=== PATIENT | female | born 1955 ===

== ENCOUNTER 2020-03-06 11:03 | Outpatient (REF) | payer OTHER, SELFPAY ==
--- NOTE | 2020-03-06 11:09 | MM_ITS ---
EXAMINATION: MM SCREENING DIGITAL BREAST TOMOSYNTHESIS, BILATERAL CLINICAL INFORMATION: Screening. Asymptomatic. The lifetime risk of breast cancer based on the Tyrer-Cuzick Model is 4.0%. COMPARISON: Mammography: August 01, 2018 and studies dating back to March 19, 2012 TECHNIQUE: Digital breast tomosynthesis is performed in both the craniocaudal and mediolateral oblique views along with computer-aided detection (CAD). Synthesized 2D images are generated from the tomosynthesis. FINDINGS: The breasts are heterogeneously dense, which may obscure small masses (ACR BI-RADS breast composition Category c). There are no significant masses, abnormal calcifications, or other abnormalities. MM/MM tomosynthesis screening BI IMPRESSION: There are no significant changes from prior study. ASSESSMENT: BI-RADS 1: Negative RECOMMENDATION: Routine annual mammography screening. This patient's information was entered into a reminder system with a target due date for their next mammogram.
== END 2020-03-06 11:04 | disposition home or self-care (01) ==
LOC: HO.MAMMO 11:03
PROVIDERS: PCP Internal Medicine; Visit Provider Internal Medicine
DX: Z12.31 Encounter for screening mammogram for malignant neoplasm of breast (principal)
CPT/HCPCS: 77063; 77067

== ENCOUNTER 2021-06-16 09:33 | Outpatient (REF) | payer OTHER, SELFPAY ==
--- NOTE | 2021-06-16 09:57 | ECG_ITS ---
Test Reason : pre op Blood Pressure : / mmHG Vent. Rate : 072 BPM Atrial Rate : 072 BPM P-R Int : 138 ms QRS Dur : 072 ms QT Int : 380 ms P-R-T Axes : 048 057 075 degrees QTc Int : 416 ms Normal sinus rhythm Normal ECG When compared to the previous EKG of No significant changes seen Referred By: Jodie Angeles Electronically Signed By:ABIEL COON MD
[2021-06-16 09:58] LABS: MANUAL DIFF FLAG NO
[2021-06-16 10:05] LABS: Basophils Absolute Auto 0.1 X10*3/uL (0.0-0.2); Basophils Percent Auto 1.5 % (0-2); Eosinophils Absolute Auto 0.1 X10*3/uL (0.0-0.4); Eosinophils Percent Auto 3.6 % (0-4); Hematocrit 41.4 % (37.0-47.0); Hemoglobin 13.6 g/dl (12.0-16.0); Lymphocytes Absolute Auto 1.7 X10*3/uL (1.2-4.9); Lymphocytes Percent Auto 50.2 % (20-40); Mean Corpuscular HGB Conc 32.9 g/dl (31.0-35.0); Mean Corpuscular Hemoglobin 30.3 pg (27.0-33.0); Mean Corpuscular Volume 92.2 fL (80.0-98.0); Mean Platelet Volume 9.9 fL (9.4-12.3); Monocytes Absolute Auto 0.4 X10*3/uL (0.1-1.2); Monocytes Percent Auto 10.9 % (2-11); Neutrophils Absolute Auto 1.1 x10*3/uL (2.0-8.3); Neutrophils Percent Auto 33.8 % (45-73); Platelet Count 292 X10*3/uL (160-400); Red Blood Count 4.49 X10*6/uL (4.20-5.50); Red Cell Distribution Width 13.4 % (11.0-16.0); White Blood Count 3.3 X10*3/uL (4.8-10.8)
[2021-06-16 10:29] LABS: Alanine Aminotransferase 8 U/L (0-31); Albumin Level 4.1 g/dL (3.5-5.0); Alkaline Phosphatase 123 U/L (39-117); Anion Gap 11 (12-20); Aspartate Amino Transferase 14 U/L (5-31); Bilirubin Total 0.3 mg/dL (0.0-1.0); Blood Urea Nitrogen 11 mg/dL (9-16); Calcium 9.9 mg/dL (8.4-10.2); Carbon Dioxide 30 mmol/L (22-29); Chloride 105 mmol/L (96-108); Cholesterol 189 mg/dL; Estimated Glomerular Filt Rate > 60; Glucose Fasting 84 mg/dL (60-99); HDL Cholesterol 76 mg/dL; LDL Cholesterol Calculated 102 mg/dl; Potassium 4.9 mmol/L (3.3-5.1); Sodium 141 mmol/L (135-145); Total Protein 7.3 g/dL (6.5-8.0); Triglycerides 59 mg/dL
== END 2021-06-16 09:34 | disposition home or self-care (01) ==
LOC: HO.LAB 09:33
PROVIDERS: PCP Internal Medicine; Visit Provider Internal Medicine
DX: Z01.818 Encounter for other preprocedural examination (principal); D64.9 Anemia, unspecified
CPT/HCPCS: 36415; 80053; 80061; 85025; 93005

== ENCOUNTER 2021-07-15 11:49 | Outpatient (REF) | payer OTHER, SELFPAY ==
--- NOTE | ~2021-07-15 | MM_ITS ---
EXAMINATION: MM SCREENING DIGITAL BREAST TOMOSYNTHESIS, BILATERAL CLINICAL INFORMATION: Screening. Asymptomatic. The lifetime risk of breast cancer based on the Tyrer-Cuzick Model is 9%. COMPARISON: Mammography: 03/06/2020, 08/01/2018, 07/24/2017, 06/25/2016 TECHNIQUE: Digital breast tomosynthesis is performed in both the craniocaudal and mediolateral oblique views along with computer-aided detection (CAD). Synthesized 2D images are generated from the tomosynthesis. FINDINGS: There are scattered areas of fibroglandular density (ACR BI-RADS breast composition Category b). There are no significant masses, abnormal calcifications, or other abnormalities. Parenchymal pattern is similar to prior studies. There is no developing density or architectural abnormality. The axilla and skin contours are unremarkable. No significant changes. MM/MM tomosynthesis screening BI IMPRESSION: No mammographic evidence of malignancy. ASSESSMENT: BI-RADS 1: Negative RECOMMENDATION: Routine annual mammography screening. This patient's information was entered into a reminder system with a target due date for their next mammogram.
== END 2021-07-15 11:50 | disposition home or self-care (01) ==
LOC: HO.MAMMO 11:49
PROVIDERS: PCP Internal Medicine; Visit Provider Internal Medicine
DX: Z12.31 Encounter for screening mammogram for malignant neoplasm of breast (principal)
CPT/HCPCS: 77063; 77067

== ENCOUNTER 2022-01-21 11:26 | Outpatient (REF) | payer OTHER, SELFPAY ==
[2022-01-21 13:00] LABS: TSH reflex Free T4 0.42 uIU/mL (0.32-4.0); Vitamin D 25-OH Total 30.4 ng/mL (>30)
[2022-01-21 13:15] LABS: Folate 9.4 ng/mL (> or = 4.0); Vitamin B12 391 pg/mL (200-900)
[2022-01-25 00:57] LABS: TS Negative Control Passed; TS Panel A 1; TS Panel B 4; TS Positive Control Passed; TSpotTB Negative (Negative)
== END 2022-01-21 11:27 | disposition home or self-care (01) ==
LOC: HO.LAB 11:26
PROVIDERS: Visit Provider Nurse Practitioner Family
DX: Z00.00 Encounter for general adult medical examination without abnormal findings (principal); Z11.1 Encounter for screening for respiratory tuberculosis
CPT/HCPCS: 36415; 82306; 82607; 82746; 84443; 86481

== ENCOUNTER 2022-07-21 10:48 | Outpatient (REF) | payer OTHER, SELFPAY ==
--- NOTE | ~2022-07-21 | MM_ITS ---
EXAMINATION: BONE DENSITOMETRY CLINICAL INDICATION: Asymptomatic menopausal state. COMPARISON: None (current study represents initial baseline exam). TECHNIQUE: Using a [employer] DXA System (software version: 13.1) manufactured by [employer], dual-energy x-ray absorptiometry was performed of the lumbar spine and left hip. The images are of good technical quality. Summary results are attached. FINDINGS: AP SPINE L1-L4: BMD 1.024 g/cm2, Z-score -0.2, T-score -1.3, osteopenia. LEFT FEMUR, NECK: BMD 0.929 g/cm2, Z-score 0.4, T-score -0.8, normal. LEFT FEMUR, TOTAL: BMD 0.981 g/cm2, Z-score 0.7, T-score -0.2, normal. IDENTIFIED RISK FACTORS: Secondary osteoporosis (early menopause). Hysterectomy. Right oophorectomy. HISTORY OF FRACTURE: None listed. MEDICATIONS: Calcium supplement or multivitamin. Vitamin D MM/XR DEXA axial skeleton IMPRESSION: 1. DIAGNOSIS: Osteopenia based on the lowest T-score value of -1.3 in the lumbar spine applying World Health Organization criteria. 2. 10-YEAR FRACTURE RISK PREDICTION, FRAX: Major osteoporotic fracture (clinical spine, forearm, hip or shoulder) 4.3%. Hip fracture 0.3%. 3. Treatment Recommendations: NOF guidelines recommend consideration for treatment in postmenopausal women and men age 50 and older presenting with the following: -A hip or vertebral (clinical or morphometric) fracture. -T-score less than or equal to -2.5 at the femoral neck or spine after appropriate evaluation to exclude secondary causes. -Low bone mass at the hip or spine and a 10-year fracture probability by FRAX of greater than or equal to 3% for hip fracture or greater than or equal to 20% for major osteoporotic fracture based on the [place] adapted WHO algorithm. 4. Other Recommendations: All treatment decisions require clinical judgment and consideration of individual patient factors, including patient preferences, comorbidities, previous drug use, risk factors not captured in the FRAX model (e.g. frailty, falls, vitamin D deficiency, increased bone turnover, interval significant decline in bone density) and possible under or overestimation of fracture risk by FRAX. Additional medical evaluation for secondary cause of low bone mineral density may be appropriate. FUTURE SCAN RECOMMENDATION: People with diagnosed cases of osteoporosis or at high risk for fracture should have regular bone mineral density tests. For patients eligible for Medicare, routine testing is allowed once every 2 years. The testing frequency can be increased to one year for patients who have rapidly progressing disease, those who are receiving or discontinuing medical therapy to restore bone mass, or have additional risk factors.
--- NOTE | ~2022-07-21 | MM_ITS ---
EXAMINATION: MM SCREENING DIGITAL BREAST TOMOSYNTHESIS, BILATERAL CLINICAL INFORMATION: Screening. Asymptomatic. The lifetime risk of breast cancer based on the Tyrer-Cuzick Model is 3.2%. COMPARISON: Mammography: July 15, 2021 and studies dating back to June 25, 2016 TECHNIQUE: Digital breast tomosynthesis is performed in both the craniocaudal and mediolateral oblique views along with computer-aided detection (CAD). Synthesized 2D images are generated from the tomosynthesis. FINDINGS: There are scattered areas of fibroglandular density (ACR BI-RADS breast composition Category b). There are no significant masses, abnormal calcifications, or other abnormalities. MM/MM tomosynthesis screening BI IMPRESSION: No significant changes from prior exam. ASSESSMENT: BI-RADS 1: Negative RECOMMENDATION: Routine annual mammography screening. This patient's information was entered into a reminder system with a target due date for their next mammogram.
== END 2022-07-21 10:49 | disposition home or self-care (01) ==
LOC: HO.MAMMO 10:48
PROVIDERS: PCP Internal Medicine; Visit Provider Nurse Practitioner Family
DX: Z12.31 Encounter for screening mammogram for malignant neoplasm of breast (principal); Z13.820 Encounter for screening for osteoporosis; Z78.0 Asymptomatic menopausal state
CPT/HCPCS: 77063; 77067; 77080

== ENCOUNTER 2022-11-24 12:53 | Outpatient (AMB) | payer OTHER, SELFPAY ==
[2022-11-24 13:02] VITALS: BP 132/80; PULSE 99; O2SAT 98; BMI 28.1
--- NOTE | 2022-11-24 13:02 | MHC.PC.OV ---
Vital Signs 11/24/22 13:02 Height 5 ft 7 in Weight 179 lb 6 oz BMI 28.1 BP 132/80 Blood Pressure Location Lt brachial Position Sitting Pulse 99 Pulse Source Pulse Oximeter Pulse Oximetry (%) 98 Oxygen Delivery Method Room Air Intake Visit Reasons: Red spots all over body Results Engineer Required: No Accompanied by: Self / Same As Patient Allergies bupropion [From Wellbutrin SR] Allergy (Intermediate, Verified 11/24/22 13:02) tachycardia Tobacco use date assessed: 11/24/22 Fall risk assessment: 1 Fall in past year Last assessed Fall Risk: 11/24/22 Dental Screening Dental Screen Date: 11/24/22 Did you have a dental visit in the last 12 months?: Yes Did you have a dental problem in the last 6 months where you did not have access to dental care?: No Was dental information given to patient?: Patient has dentist HPI HPI Comments History of Present Illness Details This is a 67-year-old female with mild major depression, anxiety and GERD.Patient of Dr. Mallory, Patient presents today for rash that complains of a rash on the right lower leg that started in august scaly and pruritic.She denies being bit by a bug.? Has try [id number] hydrocortisone cream and triple antibiotic with no significant relief. Patient was prescribed ketoconazole cream in August with no improvement just states it made her skin peel off to right lower leg and the skin got really pink. Patient reports it is returning back to normal. Patient continues to have scattered flat erythematous spots to bilateral lower extremities. Patient she states she is concerned for chickenpox, patient reassured chickenpox usually small fluid-filled vesicles. Patient states has a has appointment to see Dermatology in December. ? [facility] Medical History ED (generalized anxiety disorder) Insomnia Leukopenia Mild recurrent major depression Physical exam Polyarthralgia Pre-op evaluation Surgical History History of arthroscopy of left knee History of cataract surgery History of colonoscopy History of repair of rotator cuff History of total abdominal hysterectomy and bilateral salpingo-oophorectomy Family History Father CVD (cardiovascular disease) Hypertension Mother Diabetes Uterine cancer Cancer Paternal Grandmother Hypertension Paternal Grandfather No problems noted. Family/Other Substance use disorder FH: mental illness Son No problems noted. Daughter No problems noted. Daughter No problems noted. Brother Cancer Maternal Grandmother Cancer Maternal Grandfather Cancer Paternal Uncle Cancer Social History Household Members: Children [facility] Are you a primary career development counselor to a significant other at home: No Do you presently have visiting nurse or other home services: No Alcohol intake: current Alcohol intake frequency: holidays/special occasions only Alcohol type: beer Patient Tobacco Use Status: Former Tobacco user Quit Date: 05/2021 Tobacco use type: Cigarette e-Cigarette/Vaping Use: Never Used Second Hand Smoke Exposure: No service: No Current occupational status: employed Current occupational exposures/hazards: No Cognitive needs: No Hearing needs: No Vision needs: Yes (Glasses.) Questionnaire PHQ-9 Over the last 2 weeks, how often have you been bothered by any of the following problems? 1. Little interest or pleasure in doing things: not at all 2. Feeling down, depressed, or hopeless: several days 3. Trouble falling or staying asleep, or sleeping too much: several days 4. Feeling tired or having little energy: several days 5. Poor appetite or overeating: several days 6. Feeling bad about yourself - or that you are a failure or have let yourself or your family down: several days 7. Trouble concentrating on things, such as reading the newspaper or watching television: not at all 8. Moving or speaking so slowly that other people could have noticed. Or the opposite - being so fidgety or restless that you have been moving around a lot more than usual: several days 9. Thoughts that you would be better off or of hurting yourself in some way: not at all Total score: 6 Depression Screening Interpretation: Positive Depression Screening Follow-up: In treatment 16042 - PHQ-9 Billing: Yes Source: Developed by Drs. Prince Srivastava, Kori Phillips, Jose Sanders and colleagues, with an educational buddy from [employer] Thrive Questionnaire Date Thrive assessed: 11/24/22 I am a: Patient What is your living situation today?: I have a steady place to live Within the past 12 months, did the food you bought not last and you didn't have the money to get more?: Never true Within the past 12 months, did you worry whether your food would run out before you got money to buy more?: Never true Do you have trouble paying for medicines?: No Do you have trouble getting transportation to medical appointments?: No Do you have trouble paying your heating and electricity bill?: No Do you have trouble taking care of your child, family member or friend?: No Do you have trouble with day-to-day activities such as bathing, preparing meals, shopping, managing finances, etc.?: No Are you currently unemployed and looking for a job?: No Are you interested in more education?: No Please select the resources that you would like help with: None Currently or been in a relationship where the following occur: no concerns reported AUDIT C Alcohol Use Questionnaire (AUDIT-C) 1. How often do you have a drink containing alcohol?: Never Total Score: 0 ED-7 AMB Questionnaire ED-7 Date ED - 7 assessed: 11/24/22 Feeling nervous, anxious, or on edge: 0 = Not at all Not being able to stop or control worryin = Not at all Worrying too much about different things: 0 = Not at all Trouble relaxin = Not at all Being so restless that it is hard to sit still: 0 = Not at all Becoming easily annoyed or irritable: 0 = Not at all Feeling afraid as if something awful might happen: 0 = Not at all Total ED-7 score (0-4 normal; 5-9 mild; 10-14 moderate; 15-21 severe): 0 Source: Developed by Drs. Prince Srivastava, Kori Phillips, Jose Sanders and colleagues, with an educational buddy from [employer] Review of Systems Const Denies chills, Denies fatigue, Denies fever(s) and Denies poor appetite Eyes Denies no additional complaints ENT Reports Normal hearing present Card Denies chest pain, Denies syncope, Denies rapid heart rate and Denies dyspnea Resp Denies cough and Denies dyspnea GI Denies change in stool character, Denies constipation, Denies diarrhea, Denies nausea and Denies vomiting Denies urinary frequency, Denies dysuria and Denies urinary urgency Neuro Reports Normal hearing present, Denies confusion and Denies syncope Psych Denies confusion Endo Denies fatigue Physical exam (Primary Care) Vital Signs: Last Vital Signs Pulse 99 11/24/22 13:02 BP 132/80 11/24/22 13:02 Pulse Ox 98 11/24/22 13:02 Oxygen Delivery Method Room Air 11/24/22 13:02 BMI result Body Mass Index 28.1 Tobacco/Smoking Status: Tobacco use Status Tobacco use date assessed 11/24/22 11/24/22 13:08 Patient Tobacco Use Status Former Tobacco user 11/24/22 13:08 Tobacco use type Cigarette 11/24/22 13:08 e-Cigarette/Vaping Use Never Used 11/24/22 13:08 PHQ-9: PHQ-9 Score PHQ-9: Total score 6 11/24/22 15:45 Depression Screening Interpretation: Positive Depression Screening Follow-up: In treatment Thrive Assessment: Date of Thrive Assessment Date Thrive assessed 11/24/22 11/24/22 13:08 Currently or been in a relationship where the following occur: no concerns reported Const General: No confusion Orientation/consciousness: No confusion HENMT Head: Yes normocephalic and Yes atraumatic Eyes Conjunctivae: conjunctivae normal Chest Chest palpation & inspection: normal inspection of the chest Resp Effort & Inspection: normal respiratory effort Auscultation: clear to auscultation bilaterally, no crackles, no rhonchi and no wheezes Cardio Rate: regular rate Rhythm: regular rhythm Heart sounds: S1 normal heart sound present and S2 normal heart sound present GI Inspection: Yes normal to inspection Skin Other: appears to be scattered flat,puritic rash to bilateral LE, Covered in calimine lotion during appointment. Full body images: 1. scaled annular 3x 3 cm of healing regranulation tissue from where she reports skin peeled off. No drainage or surrounding erythema. Neuro General: No confusion Cranial nerves: Yes Normal hearing present Extrem General: No edema Assessment and Plan Assessment & Plan (1) Rash: Code(s): R21 - Rash and other nonspecific skin eruption Plan: Triamcinolone cream topical b.i.d. times 14 days sent to patient's pharmacy. Patient advised if no improvement after steroid cream to follow-up with PCP. Keep scheduled appointment with Dermatology in December. Medications: New triamcinolone acetonide 0.5% 1 appl topical BID 15 grams 0RF R21 - Rash and other nonspecific skin eruption Coding Level of Care Code Est Pt Level 3 (25775) Diagnoses Rash R21
== END 2022-11-24 14:28 | disposition home or self-care (01) ==
PROVIDERS: PCP Internal Medicine; Visit Provider Nurse Practitioner Family
DX: R21 Rash and other nonspecific skin eruption (principal)
CPT/HCPCS: 99213

== ENCOUNTER 2023-01-26 09:45 | Outpatient (AMB) | payer OTHER, SELFPAY ==
[2023-01-26 09:51] VITALS: BP 118/80; BMI 28.2
--- NOTE | 2023-01-26 09:51 | A.OFFPC_ITS ---
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 Accompanied by: Self / Same As Patient Allergies bupropion [From Wellbutrin SR] Allergy (Intermediate, Verified 01/26/23 10:06) tachycardia Medication List - Last Reconciled 01/26/23 by Jodie Angeles MD albuterol sulfate 90 mcg/actuation (Ventolin HFA) 2 puffs inhalation Q6H PRN 30 days betamethasone dipropionate 0.05% 1 appl topical BID blood pressure monitor As directed cholecalciferol (vitamin D3) 25 mcg PO DAILY 30 days clonazepam 0.5 mg PO BID PRN 30 days diclofenac sodium 1% 1 - 2 grams topical TID-QID PRN 30 days fluticasone propionate 50 mcg/actuation 1 spray intranasal DAILY 30 days omeprazole 20 mg PO DAILY 90 days tacrolimus 0.1% 1 appl topical BID tramadol 50 mg PO Q4-6H PRN 30 days triamcinolone acetonide 0.5% 1 appl topical BID Wellbutrin SR (bupropion HCl) 200 mg PO DAILY 90 days NS zolpidem 10 mg PO BEDTIME 30 days Tobacco use date assessed: 11/24/22 Fall risk assessment: No Falls in past year Last assessed Fall Risk: 01/26/23 Dental Screening Dental Screen Date: 01/26/23 Did you have a dental visit in the last 12 months?: No Did you have a dental problem in the last 6 months where you did not have access to dental care?: No Was dental information given to patient?: Patient has dentist HPI HPI Comments History of Present Illness Details This is a 67-year-old female that comes for her physical exam. Last mammogram was 2022. Had Cologuard 2021 and was negative. Had a colonoscopy in 2013 showing tubular adenoma but she declines another colonoscopy even though she is aware that tubular adenoma has a higher risk of colon cancer. She denies any chest pain or shortness of breath. Depression stable with medications and is follow by Psychiatry. [facility] Medical History Leukopenia Insomnia ED (generalized anxiety disorder) Mild recurrent major depression Physical exam Pre-op evaluation Polyarthralgia Surgical History History of colonoscopy History of cataract surgery History of repair of rotator cuff History of arthroscopy of left knee History of total abdominal hysterectomy and bilateral salpingo-oophorectomy Family History (Updated 01/26/23 @ 10:14 by Jodie Angeles MD) Father CVD (cardiovascular disease) Hypertension Mother Diabetes Uterine cancer Cancer Paternal Grandmother Hypertension Paternal Grandfather No problems noted. Family/Other Substance use disorder FH: mental illness Son No problems noted. Daughter No problems noted. Daughter No problems noted. Brother Cancer Maternal Grandmother Cancer Maternal Grandfather Cancer Paternal Uncle Cancer Social History Household Members: Children Housing: [facility] Are you a primary neonatal intensive care unit nurse to a significant other at home: No Do you presently have visiting nurse or other home services: No Alcohol intake: current Alcohol intake frequency: holidays/special occasions only Alcohol type: beer Patient Tobacco Use Status: Former Tobacco user Quit Date: 05/2021 Tobacco use type: Cigarette e-Cigarette/Vaping Use: Never Used Second Hand Smoke Exposure: No service: No Current occupational status: employed Current occupational exposures/hazards: No Cognitive needs: No Hearing needs: No Vision needs: Yes (Glasses.) Questionnaire Thrive Questionnaire Date Thrive assessed: 11/24/22 ED-7 AMB Questionnaire ED-7 Date ED - 7 assessed: 11/24/22 Source: Developed by Drs. Prince Srivastava, Kori Phillips, Jose Sanders and colleagues, with an educational buddy from [employer]. Review of Systems Const All systems reviewed & are unremarkable except as noted in HPI and below Eyes Reports no additional complaints, Denies change in vision and Denies other visual disturbances Card Denies chest pain at rest, Denies chest pain with activity, Denies edema, Denies irregular heart rhythm, Denies claudication, Denies dyspnea, Denies dyspnea on exertion, Denies orthopnea, Denies paroxysmal nocturnal dyspnea and Denies slow heart rate Resp Denies cough, Denies dyspnea and Denies dyspnea on exertion GI Denies abdominal pain, Denies change in bowel habits, Denies excessive flatus, Denies nausea and Denies vomiting Denies urinary incontinence, Denies urinary hesitancy and Denies urinary urgency Musc Denies abnormal gait, Denies atrophy, Denies deformity and Denies limited range of motion Skin/Breast Denies bleeding lesions, Denies changing lesions and Denies rash Neuro Denies abnormal gait and Denies lack of coordination Physical exam (Primary Care) Vital Signs: Last Vital Signs BP 118/80 01/26/23 09:51 BMI result Body Mass Index 28.2 Tobacco/Smoking Status: Tobacco use Status Tobacco use date assessed 11/24/22 01/26/23 09:57 Patient Tobacco Use Status Former Tobacco user 01/26/23 09:57 Tobacco use type Cigarette 01/26/23 09:57 e-Cigarette/Vaping Use Never Used 01/26/23 09:57 Thrive Assessment: Date of Thrive Assessment Date Thrive assessed 11/24/22 01/26/23 09:57 Const Orientation/consciousness: patient oriented x3 HENMT Head: Yes normal to inspection, Yes normocephalic and Yes atraumatic Ears: external ears normal Eyes General: appearance normal, both eyes and all related structures Eyelids: Yes eyelids normal Conjunctivae: conjunctivae normal Neck Neck: Yes normal visual inspection and Yes supple Resp Effort & Inspection: normal respiratory effort Auscultation: clear to auscultation bilaterally Cardio Jugular venous distension: no JVD Rate: regular rate Rhythm: regular rhythm Heart sounds: S1 normal heart sound present and S2 normal heart sound present GI Inspection: Yes normal to inspection Palpation (GI): Soft to palpation and nontender Auscultation: normal bowel sounds Skin General skin exam: no rashes or lesions noted Neuro General: patient oriented x3 and no focal motor deficits Extrem General: Yes full ROM Psych Appearance: grossly normal Immunizations pneumoc 20-tmo conj-dip cr(PF) 0.5 mL IM syringe Performing Provider: Jodie Angeles MD Performing Location: [facility] Administered by: GER Mcadams on 01/26/23 10:28 Dose Route Admin Location Dispensed Lot Number Expiration Date NDC Senior Case Manager 0.5 mL IM Right Deltoid 0.5 mL [id number] 01/30/24 9798-3539-44 [employer] VIS Given Date VIS Provided VIS Publication Date 01/26/23 Single Vaccine 21 Eligibility Eligibility Date Funding Source Not VFC Eligible 01/26/23 Private Boostrix Tdap 2.5 Lf unit-8 mcg-5 Lf/0.5 mL intramuscular syringe Performing Provider: Jodie Angeles MD Performing Location: [facility] Administered by: GER Mcadams on 01/26/23 10:28 Dose Route Admin Location Dispensed Lot Number Expiration Date NDC Senior Case Manager 0.5 mL IM Left Deltoid 0.5 mL [id number] 01/24/25 [id number] [employer] VIS Given Date VIS Provided VIS Publication Date 01/26/23 Single Vaccine 20 Eligibility Eligibility Date Funding Source Not VFC Eligible 01/26/23 Private Assessment and Plan Assessment & Plan (1) Physical exam: Code(s): Z00.00 - Encounter for general adult medical examination without abnormal findings Plan: Repeat in a year (2) Mild recurrent major depression: Code(s): F33.0 - Major depressive disorder, recurrent, mild Plan: Continue Wellbutrin. Follow-up with psychiatry. Orders: Orders Vitamin D 25-OH Total Today E55.9 - Vitamin D deficiency, unspecified Comprehensive Met. Panel Today Z00.00 - Encounter for general adult medical examination without abnormal findings TDaP Immunization Today Z23 - Encounter for immunization Pneumococcal 20 Immunization Today Z23 - Encounter for immunization Lipid Panel Today Z00.00 - Encounter for general adult medical examination without abnormal findings Medications: New omeprazole 40 mg PO DAILY 90 days 90 caps 1RF calcium carbonate 500 mg PO BID 90 days 180 tabs 3RF Changed From diclofenac sodium 1% 1 - 2 grams topical TID-QID 30 days PRN 100 grams 1RF pain To diclofenac sodium 1% 1 - 2 grams topical TID-QID 30 days PRN 100 grams 1RF pain NS Discontinued omeprazole Discontinued Reason: Patient Completed Course 20 mg PO DAILY 90 days 90 caps 1RF K21.9 - Gastro-esophageal reflux disease without esophagitis Coding Level of Care Code Est Pt Prev Care >65y(45177) Diagnoses Physical exam Z00.00 Mild recurrent major depression F33.0 Time Spent (min) 32
== END 2023-01-26 10:21 | disposition home or self-care (01) ==
PROVIDERS: Visit Provider Internal Medicine
DX: Z00.00 Encounter for general adult medical examination without abnormal findings (principal); F33.0 Major depressive disorder, recurrent, mild; Z23 Encounter for immunization
CPT/HCPCS: 90471; 90677; 90715; 99397

== ENCOUNTER 2023-01-26 13:00 | Outpatient (RCR) | payer OTHER, SELFPAY ==
--- NOTE | 2022-12-19 17:14 | MHC.PT.EP ---
[facility] [place] Office [place] [facility] [place] [facility] [address] [phone] F: [phone] F: [phone] F: [phone] F: [phone] Physical Therapy Plan of Care Date of Evaluation: Date of Surgery: Diagnosis: cervicalgia low back pain (after fall) Assessment: Patient is a 67 y.o. female who is referred to PT by Dr. Jodie Angeles MD with Dx of cervicalgia and low back pain. She sustained R sided low back, hip and neck pain after a mechanical fall, without fracture. Patient impairments include poor posture, pain, limited ROM in low back, neck, weakness in hips and core. Patient current functional limitations are turning head to look over shoulders, sleeping, daughter helps with cooking/cleaning, stairs (fearful of), lifting/carrying anything. Patient will benefit from skilled PT to address aforementioned impairments and functional limitations to meet established goals. Frequency and Duration: The patient will be seen 2x/week for 4 weeks Short Term Goals: 2 weeks Patient demonstrates consistency and independence with HEP to self manage symptoms. Patient presents with ability to self correct poor posture, sitting with neutral cervical and lumbar spine. Alterations Workroom Clerk Goals: 4 weeks Patient presents with increased cervical rotation 55 degrees bilaterally to look over her shoulders for driving or crossing street. Patient presents with increased R hip flexion 5/5 to be able to ascend/descend flight of stairs at home. Treatment Plan: Modalities to reduce pain, spasms and effusion. Manual therapy to restore motion and function. Therapeutic exercise to improve strength and flexibility. Neuromuscular re-education for posture and balance. Therapeutic activities to return to functional activities of daily living. Electronically signed by: Deon Molina, PT, DPT Please sign and return to therapist. Thank you for your referral.
--- NOTE | 2023-01-26 16:55 | MHC.PT.DC ---
[facility] [place] Office [place] Office [place] Office [address] Rebeca Mohan [address] [phone] F: [phone] F: [phone] F: [phone] F: [phone] Physical Therapy Discharge Report Diagnosis: cervicalgia low back pain (after fall) Date of Surgery: DOI 09/17/22 Date of Evaluation: 12/19/22 Date of Discharge: 01/26/23 Treatments to Date: 8 Cancellations to Date: No Shows to Date: Discharge Status: Improved Function Independent with HEP Discharge Summary: Since starting PT, she has shown reduction in pain level and ability to perform more exercises without needing manual therapy. I re-educated her on continuing with exercises for stretching or strengthening her back. She is appropriate for discharge at this time and agrees to plan. Electronically signed by: Deon Molina, PT, DPT Please sign and return to therapist. Thank you for your referral.
== END 2023-01-26 16:59 | disposition home or self-care (01) ==
LOC: HO.PT 13:00
PROVIDERS: PCP Internal Medicine; Visit Provider Internal Medicine
DX: M54.50 Low back pain, unspecified (principal)
CPT/HCPCS: 97110; 97140; 97161

== ENCOUNTER 2023-07-27 09:38 | Outpatient (AMB) | payer OTHER, SELFPAY ==
[2023-07-27 09:48] VITALS: BP 126/78; BMI 28.2
--- NOTE | 2023-07-27 09:48 | A.OFFPC_ITS ---
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 by: Self / Same As Patient Allergies bupropion [From Wellbutrin SR] Allergy (Intermediate, Verified 07/27/23 09:49) tachycardia Medication List - Last Reconciled 07/27/23 by Jodie Angeles MD albuterol sulfate 90 mcg/actuation (Ventolin HFA) 2 puffs inhalation Q6H PRN 30 days blood pressure monitor As directed calcium carbonate 500 mg PO BID 90 days cholecalciferol (vitamin D3) 25 mcg PO DAILY 30 days clonazepam 0.5 mg PO BID PRN 30 days diclofenac sodium 1% 1 - 2 grams topical TID-QID PRN 30 days NS fluticasone propionate 50 mcg/actuation 1 spray intranasal DAILY 30 days omeprazole 40 mg PO DAILY 90 days tacrolimus 0.1% 1 appl topical BID tramadol 50 mg PO Q4-6H PRN 30 days triamcinolone acetonide 0.5% 1 appl topical BID Wellbutrin SR (bupropion HCl) 200 mg PO DAILY 90 days NS zolpidem 10 mg PO BEDTIME 30 days Tobacco use date assessed: 07/27/23 Fall risk assessment: No Falls in past year Last assessed Fall Risk: 07/27/23 Dental Screening Dental Screen Date: 07/27/23 Did you have a dental visit in the last 12 months?: No Did you have a dental problem in the last 6 months where you did not have access to dental care?: No Was dental information given to patient?: Patient has dentist HPI HPI Comments History of Present Illness Details This is a 68-year-old female with mild recurrent major depression, anxiety, insomnia and lumbar pain that comes today for follow-up on her conditions. Depression and anxiety as well as insomnia has been stable with psychiatry follow-up and medications. She does have low back pain that sometimes radiates to the left leg although straight leg was negative bilaterally. Has seen ortho for this matter which recommended pain management but she declined. Well controlled with tramadol as needed. Patient aware that tramadol can cause addiction and sedation. No chest pain or shortness of breath. [facility] Medical History Leukopenia Insomnia ED (generalized anxiety disorder) Mild recurrent major depression Physical exam Pre-op evaluation Polyarthralgia Surgical History History of colonoscopy History of cataract surgery History of repair of rotator cuff History of arthroscopy of left knee History of total abdominal hysterectomy and bilateral salpingo-oophorectomy Family History Father CVD (cardiovascular disease) Hypertension Mother Diabetes Uterine cancer Cancer Paternal Grandmother Hypertension Paternal Grandfather No problems noted. Family/Other Substance use disorder FH: mental illness Son No problems noted. Daughter No problems noted. Daughter No problems noted. Brother Cancer Maternal Grandmother Cancer Maternal Grandfather Cancer Paternal Uncle Cancer Social History Household Members: Children Housing: [facility] Are you a primary laboratory animal caretaker to a significant other at home: No Do you presently have visiting nurse or other home services: No Alcohol intake: current Alcohol intake frequency: holidays/special occasions only Alcohol type: beer Patient Tobacco Use Status: Former Tobacco user Quit Date: 05/2021 Tobacco use type: Cigarette e-Cigarette/Vaping Use: Never Used Second Hand Smoke Exposure: No service: No Current occupational status: unemployed Cognitive needs: No Hearing needs: No Vision needs: Yes (Glasses.) Questionnaire PHQ-9 Over the last 2 weeks, how often have you been bothered by any of the following problems? 1. Little interest or pleasure in doing things: not at all 2. Feeling down, depressed, or hopeless: several days 3. Trouble falling or staying asleep, or sleeping too much: not at all 4. Feeling tired or having little energy: not at all 5. Poor appetite or overeating: not at all 6. Feeling bad about yourself - or that you are a failure or have let yourself or your family down: not at all 7. Trouble concentrating on things, such as reading the newspaper or watching television: not at all 8. Moving or speaking so slowly that other people could have noticed. Or the opposite - being so fidgety or restless that you have been moving around a lot more than usual: not at all 9. Thoughts that you would be better off or of hurting yourself in some way: not at all Total score: 1 Depression Screening Interpretation: Negative Depression Screening Done: Yes 09912 - PHQ-9 Billing: Yes Source: Developed by Drs. Prince Srivastava, Kori Phillips, Jose Sanders and colleagues, with an educational buddy from [employer]. Thrive Questionnaire Date Thrive assessed: 07/27/23 I am a: Patient What is your living situation today?: I have a steady place to live Within the past 12 months, did the food you bought not last and you didn't have the money to get more?: Never true Within the past 12 months, did you worry whether your food would run out before you got money to buy more?: Never true Do you have trouble paying for medicines?: No Do you have trouble getting transportation to medical appointments?: No Do you have trouble paying your heating and electricity bill?: No Do you have trouble taking care of your child, family member or friend?: No Do you have trouble with day-to-day activities such as bathing, preparing meals, shopping, managing finances, etc.?: No Are you currently unemployed and looking for a job?: No Are you interested in more education?: No Please select the resources that you would like help with: None Currently or been in a relationship where the following occur: no concerns reported THRIVE Score: 0 AUDIT C Alcohol Use Questionnaire (AUDIT-C) 1. How often do you have a drink containing alcohol?: Monthly or less 2. How many drinks containing alcohol do you have on a typical day when you are drinking?: 1 or 2 3. How often do you have six or more drinks on one occasion?: Never Total Score: 1 Score Reviewed/Action Taken: No ED-7 AMB Questionnaire ED-7 Date ED - 7 assessed: 07/27/23 Feeling nervous, anxious, or on edge: 1 = Several days Not being able to stop or control worryin = Not at all Worrying too much about different things: 1 = Several days Trouble relaxin = Not at all Being so restless that it is hard to sit still: 0 = Not at all Becoming easily annoyed or irritable: 1 = Several days Feeling afraid as if something awful might happen: 1 = Several days Total ED-7 score (0-4 normal; 5-9 mild; 10-14 moderate; 15-21 severe): 4 Source: Developed by Drs. Prince Srivastava, Kori Phillips, Jose Sanders and colleagues, with an educational buddy from [employer]. ED-7 Assessment Billing ED-7 Assessment Tool: ED-7 Assessment 71999 Review of Systems Const All systems reviewed & are unremarkable except as noted in HPI and below Eyes Reports no additional complaints, Denies change in vision and Denies other visual disturbances Card Denies chest pain at rest, Denies chest pain with activity, Denies edema, Denies irregular heart rhythm, Denies claudication, Denies dyspnea, Denies dyspnea on exertion, Denies orthopnea, Denies paroxysmal nocturnal dyspnea and Denies slow heart rate Resp Denies cough, Denies dyspnea and Denies dyspnea on exertion GI Denies abdominal pain, Denies change in bowel habits, Denies excessive flatus, Denies nausea and Denies vomiting Denies urinary incontinence, Denies urinary hesitancy and Denies urinary urgency Physical exam (Primary Care) Vital Signs: Last Vital Signs BP 126/78 07/27/23 09:48 BMI result Body Mass Index 28.2 Tobacco/Smoking Status: Tobacco use Status Tobacco use date assessed 07/27/23 07/27/23 10:04 Patient Tobacco Use Status Former Tobacco user 07/27/23 10:04 Tobacco use type Cigarette 07/27/23 10:04 e-Cigarette/Vaping Use Never Used 07/27/23 10:04 PHQ-9: PHQ-9 Score PHQ-9: Total score 1 07/27/23 10:14 Depression Screening Interpretation: Negative Thrive Assessment: Date of Thrive Assessment Date Thrive assessed 07/27/23 07/27/23 10:04 Currently or been in a relationship where the following occur: no concerns reported Resp Effort & Inspection: normal respiratory effort Auscultation: clear to auscultation bilaterally Cardio Jugular venous distension: no JVD Rate: regular rate Rhythm: regular rhythm Heart sounds: S1 normal heart sound present and S2 normal heart sound present Back/Spine/Pelvis Thoracic/Lumbar Spine: straight leg raise negative bilaterally Extrem General: Yes full ROM Psych Appearance: grossly normal Assessment and Plan Assessment & Plan (1) Mild recurrent major depression: Code(s): F33.0 - Major depressive disorder, recurrent, mild Plan: Continue Wellbutrin. Follow-up with psychiatry. (2) ED (generalized anxiety disorder): Code(s): F41.1 - Generalized anxiety disorder Plan: Continue clonazepam as needed. Follow-up with psychiatry. (3) Insomnia: Code(s): G47.00 - Insomnia, unspecified Plan: Continue zolpidem as needed. Follow-up with psychiatry. (4) GERD (gastroesophageal reflux disease): Code(s): K21.9 - Gastro-esophageal reflux disease without esophagitis Plan: Continue PPIs. (5) Lumbar pain: Code(s): M54.50 - Low back pain, unspecified Plan: Continue tramadol as needed. Coding Level of Care Code Est Pt Level 4 (00507) Diagnoses Mild recurrent major depression F33.0 ED (generalized anxiety disorder) F41.1 Insomnia G47.00 GERD (gastroesophageal reflux disease) K21.9 Lumbar pain M54.50 Additional Codes ED-7 Assessment Billing - ED-7 Assessment Tool: ED-7 Assessment 81010 ([id number]) Time Spent (min) 22
== END 2023-07-27 10:20 | disposition home or self-care (01) ==
PROVIDERS: PCP Internal Medicine; Visit Provider Internal Medicine
DX: G47.00 Insomnia, unspecified (principal); F33.0 Major depressive disorder, recurrent, mild; F41.1 Generalized anxiety disorder; K21.9 Gastro-esophageal reflux disease without esophagitis; M54.50 Low back pain, unspecified
CPT/HCPCS: 99214

== ENCOUNTER → 2023-08-01 10:45 | Outpatient (BNV) | payer OTHER, SELFPAY | PROVIDERS: PCP Internal Medicine; Visit Provider Radiology Diagnostic Radiology | DX: Z12.31 Encounter for screening mammogram for malignant neoplasm of breast (principal) | CPT/HCPCS: 77063; 77067 ==

== ENCOUNTER 2023-08-01 10:53 | Outpatient (REF) | payer OTHER, SELFPAY | END 2023-08-01 10:54 | disposition home or self-care (01) | LOC: HO.MAMMO 10:53 | PROVIDERS: PCP Internal Medicine; Visit Provider Internal Medicine | DX: Z12.31 Encounter for screening mammogram for malignant neoplasm of breast (principal) | CPT/HCPCS: 77063; 77067 ==

== ENCOUNTER 2024-02-22 09:41 | Outpatient (AMB) | payer OTHER, SELFPAY ==
[2024-02-22 09:53] VITALS: BP 130/80; BMI 26.9
--- NOTE | 2024-02-22 09:53 | MHC.PC.OV ---
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 Accompanied by: Self / Same As Patient Allergies bupropion [From Wellbutrin SR] Allergy (Intermediate, Verified 02/22/24 10:04) tachycardia Medication List - Last Reconciled 02/22/24 by Jodie Angeles MD albuterol sulfate 90 mcg/actuation (Ventolin HFA) 2 puffs inhalation Q6H PRN 30 days blood pressure monitor As directed calcium carbonate 500 mg PO BID 90 days cholecalciferol (vitamin D3) 25 mcg PO DAILY 30 days clonazepam 0.5 mg PO BID PRN 30 days diclofenac sodium 1% 1 - 2 grams topical TID-QID PRN 30 days NS fluticasone propionate 50 mcg/actuation 1 spray intranasal DAILY 30 days omeprazole 40 mg PO DAILY 90 days tacrolimus 0.1% 1 appl topical BID tramadol 50 mg PO Q4-6H PRN 30 days triamcinolone acetonide 0.5% 1 appl topical BID Wellbutrin SR (bupropion HCl) 200 mg PO DAILY 90 days NS zolpidem 10 mg PO BEDTIME 30 days Tobacco use date assessed: 07/27/23 Fall risk assessment: No Falls in past year Last assessed Fall Risk: 02/22/24 Dental Screening Dental Screen Date: 07/27/23 HPI HPI Comments History of Present Illness Details This is a 68-year-old female with mild major depression that comes for her physical exam. Depression stable with medications and this is follow by Psychiatry. Mammogram done 2023 was normal. DEXA scan done 2022 shows osteopenia. She declines colonoscopy but Cologuard was done 2021 and was negative. No need for Pap smears due to age and history of hysterectomy. Complains of left knee pain and was follow by new [facility] which did 3 local injections and the 3rd injection cause pain and still has left knee pain with limited range of motion. This was about 3 months ago. We will ask for the records and the MRI that was done in [place]. She wants a 2nd opinion and I will refer her to [facility]. [facility] Medical History (Updated 02/22/24 @ 10:33 by Jodie Angeles MD) Leukopenia Insomnia ED (generalized anxiety disorder) Mild recurrent major depression Physical exam Pre-op evaluation Polyarthralgia Surgical History History of colonoscopy History of cataract surgery History of repair of rotator cuff History of arthroscopy of left knee History of total abdominal hysterectomy and bilateral salpingo-oophorectomy Family History Father CVD (cardiovascular disease) Hypertension Mother Diabetes Uterine cancer Cancer Paternal Grandmother Hypertension Paternal Grandfather No problems noted. Family/Other Substance use disorder FH: mental illness Son No problems noted. Daughter No problems noted. Daughter No problems noted. Brother Cancer Maternal Grandmother Cancer Maternal Grandfather Cancer Paternal Uncle Cancer Social History Household Members: Children Housing: [facility] Are you a primary field care manager to a significant other at home: No Do you presently have visiting nurse or other home services: No Alcohol intake: current Alcohol intake frequency: holidays/special occasions only Alcohol type: beer Patient Tobacco Use Status: Former Tobacco user Tobacco use type: Cigarette e-Cigarette/Vaping Use: Never Used Second Hand Smoke Exposure: No service: No Current occupational status: unemployed Cognitive needs: No Hearing needs: No Vision needs: Yes (Glasses.) Questionnaire PHQ-9 Over the last 2 weeks, how often have you been bothered by any of the following problems? 1. Little interest or pleasure in doing things: not at all 2. Feeling down, depressed, or hopeless: not at all 3. Trouble falling or staying asleep, or sleeping too much: not at all 4. Feeling tired or having little energy: not at all 5. Poor appetite or overeating: not at all 6. Feeling bad about yourself - or that you are a failure or have let yourself or your family down: not at all 7. Trouble concentrating on things, such as reading the newspaper or watching television: not at all 8. Moving or speaking so slowly that other people could have noticed. Or the opposite - being so fidgety or restless that you have been moving around a lot more than usual: not at all 9. Thoughts that you would be better off or of hurting yourself in some way: not at all Total score: 0 Depression Screening Interpretation: Negative Depression Screening Done: Yes 81315 - PHQ-9 Billing: Yes Source: Developed by Drs. Prince Srivastava, Kori Phillips, Jose Sanders and colleagues, with an educational buddy from [employer]. Thrive Questionnaire Date Thrive assessed: 07/27/23 I am a: Patient What is your living situation today?: I have a steady place to live Within the past 12 months, did the food you bought not last and you didn't have the money to get more?: I choose not to answer this question Within the past 12 months, did you worry whether your food would run out before you got money to buy more?: I choose not to answer this question Do you have trouble paying for medicines?: I choose not to answer this question Do you have trouble getting transportation to medical appointments?: No Do you have trouble paying your heating and electricity bill?: Yes Do you have trouble taking care of your child, family member or friend?: No Do you have trouble with day-to-day activities such as bathing, preparing meals, shopping, managing finances, etc.?: I choose not to answer this question Are you currently unemployed and looking for a job?: I choose not to answer this question Are you interested in more education?: I choose not to answer this question Please select the resources that you would like help with: None Currently or been in a relationship where the following occur: I choose not to answer THRIVE Score: 1 AUDIT C Alcohol Use Questionnaire (AUDIT-C) 1. How often do you have a drink containing alcohol?: Never Total Score: 0 Score Reviewed/Action Taken: No ED-7 AMB Questionnaire ED-7 Date ED - 7 assessed: 07/27/23 Feeling nervous, anxious, or on edge: 0 = Not at all Not being able to stop or control worryin = Not at all Worrying too much about different things: 0 = Not at all Trouble relaxin = Not at all Being so restless that it is hard to sit still: 0 = Not at all Becoming easily annoyed or irritable: 0 = Not at all Feeling afraid as if something awful might happen: 0 = Not at all Total ED-7 score (0-4 normal; 5-9 mild; 10-14 moderate; 15-21 severe): 0 Source: Developed by Drs. Prince Srivastava, Kori Phillips, Jose Sanders and colleagues, with an educational buddy from [employer]. ED-7 Assessment Billing ED-7 Assessment Tool: ED-7 Assessment 40912 Review of Systems Const All systems reviewed & are unremarkable except as noted in HPI and below Card Denies chest pain at rest, Denies chest pain with activity, Denies edema, Denies irregular heart rhythm, Denies claudication, Denies dyspnea, Denies dyspnea on exertion, Denies orthopnea, Denies paroxysmal nocturnal dyspnea and Denies slow heart rate Resp Denies cough, Denies dyspnea and Denies dyspnea on exertion Musc Reports back pain and Reports arthralgias Physical exam (Primary Care) Vital Signs: Last Vital Signs BP 130/80 02/22/24 09:53 BMI result Body Mass Index 26.9 Tobacco/Smoking Status: Tobacco use Status Tobacco use date assessed 07/27/23 02/22/24 09:53 Patient Tobacco Use Status Former Tobacco user 02/22/24 09:53 Tobacco use type Cigarette 02/22/24 09:53 e-Cigarette/Vaping Use Never Used 02/22/24 09:53 PHQ-9: PHQ-9 Score PHQ-9: Total score 0 02/22/24 10:07 Depression Screening Interpretation: Negative Thrive Assessment: Date of Thrive Assessment Date Thrive assessed 07/27/23 02/22/24 09:53 Currently or been in a relationship where the following occur: I choose not to answer [facility] Head: Yes normal to inspection, Yes normocephalic and Yes atraumatic Ears: external ears normal Eyes General: appearance normal, both eyes and all related structures Eyelids: Yes eyelids normal Conjunctivae: conjunctivae normal Neck Neck: Yes normal visual inspection and Yes supple Resp Effort & Inspection: normal respiratory effort Auscultation: clear to auscultation bilaterally Cardio Jugular venous distension: no JVD Rate: regular rate Rhythm: regular rhythm Heart sounds: S1 normal heart sound present and S2 normal heart sound present GI Inspection: Yes normal to inspection Palpation (GI): Soft to palpation and nontender Auscultation: normal bowel sounds Back/Spine/Pelvis Thoracic/Lumbar Spine: straight leg raise positive bilateral at 40 degrees Skin General skin exam: no rashes or lesions noted Neuro General: no focal motor deficits Extrem General: Yes full ROM Left lower extremity: knee Details: tenderness and abnormal ROM Details: pain with active ROM and pain with passive ROM Details: with extension and with flexion Psych Appearance: grossly normal Office Procedures Flu Questionnaire Does the patient have a severe egg allergy?: No Immunizations Fluarix Triv [id number] (PF) 45 mcg (15 mcg x 3)/0.5 mL IM syringe Performing Provider: Jodie Angeles MD [facility] Documented (not given) by: GER Mcadams on 02/22/24 10:02 Reason Not Given: Received Previously Coding Level of Care Code Est Pt Level 3 (62333) Est Pt Prev Care >65y(18495) Diagnoses Physical exam Z00.00 Mild recurrent major depression F33.0 Chronic pain of left knee M25.562; G89.29 Chronicity: chronic Additional Codes ED-7 Assessment Billing - ED-7 Assessment Tool: ED-7 Assessment 39127 ([id number]) Time Spent (min) 35 Assessment & Plan Assessment & Plan (1) Physical exam: Code(s): Z00.00 - Encounter for general adult medical examination without abnormal findings Category: Medical Plan: Repeat in a year. (2) Mild recurrent major depression: Code(s): F33.0 - Major depressive disorder, recurrent, mild Category: Medical Plan: Follow-up with psychiatry. Continue current medications. (3) Left knee pain: Code(s): M25.562 - Pain in left knee Category: Medical Qualifiers: Chronicity: chronic Qualified Code(s): M25.562 - Pain in left knee; G89.29 - Other chronic pain Plan: Referred to Ortho for 2nd opinion. Orders: Orders Influenza [id number] Immunization Today Z23 - Encounter for immunization Lipid Panel Today E78.5 - Hyperlipidemia, unspecified Microalbumin, Random (w Creat) Today R80.9 - Proteinuria, unspecified Comprehensive [place]. Panel Fast Today Z00.00 - Encounter for general adult medical examination without abnormal findings Referrals Orthopedics Referral M25.562 - Pain in left knee Medications: Refilled cholecalciferol (vitamin D3) 25 mcg PO DAILY 30 days 30 tabs 11RF
== END 2024-02-22 10:26 | disposition home or self-care (01) ==
PROVIDERS: PCP Internal Medicine; Visit Provider Internal Medicine
DX: Z00.00 Encounter for general adult medical examination without abnormal findings (principal); M25.562 Pain in left knee; F33.0 Major depressive disorder, recurrent, mild; G89.29 Other chronic pain

== ENCOUNTER → 2024-02-22 09:41 | Outpatient (BNVA) | payer OTHER, SELFPAY | PROVIDERS: PCP Internal Medicine; Visit Provider Internal Medicine | DX: Z00.01 Encounter for general adult medical examination with abnormal findings (principal); F33.0 Major depressive disorder, recurrent, mild; M25.562 Pain in left knee; G89.29 Other chronic pain | CPT/HCPCS: 90471; 96127; 99397 ==

== ENCOUNTER 2024-04-03 09:18 | Outpatient (REF) | payer OTHER, SELFPAY | END 2024-04-03 09:19 | disposition home or self-care (01) | LOC: HO.HOSX 09:18 | PROVIDERS: Visit Provider Physician Assistant | DX: M25.561 Pain in right knee (principal); M25.562 Pain in left knee; M17.12 Unilateral primary osteoarthritis, left knee | CPT/HCPCS: 73560; 73562; 99202 ==

== ENCOUNTER 2024-04-03 11:12 | Outpatient (AMB) | payer OTHER, SELFPAY ==
--- NOTE | 2024-04-03 11:19 | A.OFFVIS_ITS ---
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 Patient was previously seen at [facility], a 3 series gel injections was given however after her third injection she had intense pain. Injection was done about 5-6 months ago. She contacted [facility] to discuss her pain, they never returned her calls. States she also had an MRI which showed arthritis, sciatica, and a pinched disc. Finds relief with Tylenol. Allergies bupropion [From Wellbutrin SR] Allergy (Intermediate, Verified 04/03/24 11:24) tachycardia Medication List - Last Reconciled 04/03/24 by Chris Langford PA-C albuterol sulfate 90 mcg/actuation (Ventolin HFA) 2 puffs inhalation Q6H PRN 30 days blood pressure monitor As directed calcium carbonate 500 mg PO BID 90 days cholecalciferol (vitamin D3) 25 mcg PO DAILY 30 days clonazepam 0.5 mg PO BID PRN 30 days diclofenac sodium 1% 1 - 2 grams topical TID-QID PRN 30 days NS fluticasone propionate 50 mcg/actuation 1 spray intranasal DAILY 30 days omeprazole 40 mg PO DAILY 90 days tacrolimus 0.1% 1 appl topical BID tramadol 50 mg PO Q4-6H PRN 30 days triamcinolone acetonide 0.5% 1 appl topical BID Wellbutrin SR (bupropion HCl) 200 mg PO DAILY 90 days NS zolpidem 10 mg PO BEDTIME 30 days HPI HPI 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 She reports she was previously seen at [facility] for her knee and presents here today for a second opinion. She had a 3 series of gel injection at [facility] about 6 months ago however after the 3rd injection she had intense pain. She currently states she has moderate pain in her knee. She takes Motrin and Tylenol in the morning with benefits. [facility] Medical History Leukopenia Insomnia ED (generalized anxiety disorder) Mild recurrent major depression Physical exam Pre-op evaluation Polyarthralgia Surgical History History of colonoscopy History of cataract surgery History of repair of rotator cuff History of arthroscopy of left knee History of total abdominal hysterectomy and bilateral salpingo-oophorectomy Family History Father CVD (cardiovascular disease) Hypertension Mother Diabetes Uterine cancer Cancer Paternal Grandmother Hypertension Paternal Grandfather No problems noted. Family/Other Substance use disorder FH: mental illness Son No problems noted. Daughter No problems noted. Daughter No problems noted. Brother Cancer Maternal Grandmother Cancer Maternal Grandfather Cancer Paternal Uncle Cancer Social History (Updated 04/03/24 @ 11:25 by GER Castanon) Household Members: Children Housing: [facility] Are you a primary managed care provider to a significant other at home: No Do you presently have visiting nurse or other home services: No Alcohol intake: current Alcohol intake frequency: holidays/special occasions only Alcohol type: beer Patient Tobacco Use Status: Former Tobacco user Tobacco use type: Cigarette e-Cigarette/Vaping Use: Never Used Second Hand Smoke Exposure: No service: No Current occupational status: employed 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 Cognitive needs: No Hearing needs: No Vision needs: Yes (Glasses.) Review of Systems Const All systems reviewed & are unremarkable except as noted in HPI and below Physical Exam Vital Signs: BMI result Body Mass Index 26.9 Const General: cooperative, healthy appearing, comfortable, no acute distress, well developed and alert Orientation/consciousness: patient oriented x3 HEENT Head: Yes normal to inspection, Yes normocephalic and Yes atraumatic Eyes General: appearance normal, both eyes and all related structures Resp Effort & Inspection: normal respiratory effort and able to speak in complete sentences Cardio Rate: regular rate Peripheral pulses: Peripheral pulses 2+ throughout GI Palpation (GI): Soft to palpation Skin Lesions: no lesions Rashes: no rashes Neuro General: patient oriented x3 Extrem Other: Left knee: Skin intact, no erythema or joint effusion. Tenderness along the medial and lateral joint line. Full ROM with crepitus. Negative Wes?s. No ligamentous laxity. NVI. Results Reviewed Results Reviewed: Xrays were obtained in the office today and personally reviewed by me of the left knee show tricompartmental oa Assessment & Plan Assessment & Plan (1) Osteoarthritis of left knee: Code(s): M17.12 - Unilateral primary osteoarthritis, left knee Category: Medical Plan We discussed options today which include conservative treatment vs surgical intervention. I explained to her the benefits of TKA and how it can improve her quality of life. At this time, she is not interested in gel or cortisone injection as it did not provide her any relief in the past and she does not want to have a surgery as she is not at the point where she is significantly limited. She will take rest of the year to really evaluate her pain and see how limited she is. If she is interested in proceeding with a TKA, she will contact the office to make an appointment with Dr. Bustos to discuss this further. All questions were answered today and she will follow-up as needed. Orders: Orders XR knee RT 1V Today M25.561 - Pain in right knee XR knee LT 3V Today M25.562 - Pain in left knee Medications: New celecoxib (Celebrex) 200 mg PO BID 60 caps 3RF 30 days Patient Instructions: Scribed for Chris Langford PA-C, by Alf Massey medical health researcher, on 04/03/2024 at 11:00 AM EST.? I, Chris Langford PA-C, have personally reviewed and agree with the information entered by the scribe. Coding Level of Care Code New Pt Level 4 (49494) Complex EM visit Add On G2211 Diagnoses Osteoarthritis of left knee M17.12
[2024-04-03 11:21] VITALS: BMI 26.9
== END 2024-04-03 13:02 | disposition home or self-care (01) ==
PROVIDERS: PCP Internal Medicine; Visit Provider Physician Assistant
DX: M17.12 Unilateral primary osteoarthritis, left knee (principal)
CPT/HCPCS: 99204; G2211

== ENCOUNTER 2024-06-20 15:45 | Outpatient (AMB) | payer OTHER, SELFPAY ==
--- NOTE | 2024-06-20 16:03 | A.OFFPC_ITS ---
Vital Signs 06/20/24 16:11 Height 5 ft 7 in Weight 179 lb BMI 28.0 BP 140/86 H Blood Pressure Location Lt brachial Position Sitting Temp 97.3 F Temp Source Temporal Artery Scan Intake Visit Reasons: SPT diagnosis Psychiatric Rn Required: Yes Psychiatric Rn Language: Automatic Quilling Machine Operator Name: Jodie Lomeli MD Information Interpreted: non-clinical & clinical Accompanied by: Self / Same As Patient Allergies bupropion [From Wellbutrin SR] Allergy (Intermediate, Verified 06/20/24 16:29) tachycardia Medication List - Last Reconciled 06/20/24 by Jodie Lomeli MD albuterol sulfate 90 mcg/actuation (Ventolin HFA) 2 puffs inhalation Q6H PRN 30 days blood pressure monitor As directed calcium carbonate 500 mg PO BID 90 days celecoxib (Celebrex) 200 mg PO BID 30 days cholecalciferol (vitamin D3) 25 mcg PO DAILY 30 days clonazepam 0.5 mg PO BID PRN 30 days diclofenac sodium 1% 1 - 2 grams topical TID-QID PRN 30 days NS fluticasone propionate 50 mcg/actuation 1 spray intranasal DAILY 30 days omeprazole 40 mg PO DAILY 90 days tacrolimus 0.1% 1 appl topical BID tramadol 50 mg PO Q4-6H PRN 30 days triamcinolone acetonide 0.5% 1 appl topical BID Wellbutrin SR (bupropion HCl) 200 mg PO DAILY 90 days NS zolpidem 10 mg PO BEDTIME 30 days Tobacco use date assessed: 06/20/24 Fall risk assessment: No Falls in past year Last assessed Fall Risk: 06/20/24 Dental Screening Dental Screen Date: 06/20/24 Did you have a dental visit in the last 12 months?: Yes Did you have a dental problem in the last 6 months where you did not have access to dental care?: No Was dental information given to patient?: Patient has dentist HPI HPI Comments History of Present Illness Details The patient is a 69-year-old female presenting with concerns regarding her right leg cellulitis with open wound and episodes of palpitations. She reports a history of eczema causing intermittent skin rashes, for which a fashion journalist was seen, and topical steroids were prescribed. Despite using topical treatments sparingly, she notes a recurring cycle of rash appearance and resolution. A self-diagnosed eczema formulation temporarily alleviated symptoms. Recently, she sustained a wound on her right leg, leading to a visit to the emergency department where she received a diagnosis of cellulitis and started on doxycycline. Additionally, she describes a recent episode of palpitations with a heart rate measured at 149 bpm. She has experienced episodes of lightheadedness associated with tachycardia, for which a computer systems analyst monitored her vitals at home, noting high readings. Initial management included heart monitoring without revealing any arrhythmia. She expresses concerns about her family history of cardiac issues, including a paternal myocardial infarction. She also has mild to moderate major depression and anxiety follow by Psychiatry. Has chronic back pain that has been well controlled with tramadol and she is aware is a weak opiate. [facility] Medical History (Updated 06/20/24 @ 19:47 by Jodie Lomeli MD) Leukopenia Insomnia ED (generalized anxiety disorder) Mild recurrent major depression Physical exam Pre-op evaluation Polyarthralgia Surgical History History of colonoscopy History of cataract surgery History of repair of rotator cuff History of arthroscopy of left knee History of total abdominal hysterectomy and bilateral salpingo-oophorectomy Family History Father CVD (cardiovascular disease) Hypertension Mother Diabetes Uterine cancer Cancer Paternal Grandmother Hypertension Paternal Grandfather No problems noted. Family/Other Substance use disorder FH: mental illness Son No problems noted. Daughter No problems noted. Daughter No problems noted. Brother Cancer Maternal Grandmother Cancer Maternal Grandfather Cancer Paternal Uncle Cancer Social History Household Members: Children Housing: [facility] Are you a primary senior care provider to a significant other at home: No Do you presently have visiting nurse or other home services: No Alcohol intake: current Alcohol intake frequency: holidays/special occasions only Alcohol type: beer Patient Tobacco Use Status: Former Tobacco user Tobacco use type: Cigarette e-Cigarette/Vaping Use: Never Used Second Hand Smoke Exposure: No service: No Current occupational status: employed 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 1. Little interest or pleasure in doing things: nearly every day 2. Feeling down, depressed, or hopeless: more than half the days 3. Trouble falling or staying asleep, or sleeping too much: nearly every day 4. Feeling tired or having little energy: more than half the days 5. Poor appetite or overeating: more than half the days 6. Feeling bad about yourself - or that you are a failure or have let yourself or your family down: several days 7. Trouble concentrating on things, such as reading the newspaper or watching television: not at all 8. Moving or speaking so slowly that other people could have noticed. Or the opposite - being so fidgety or restless that you have been moving around a lot more than usual: not at all 9. Thoughts that you would be better off or of hurting yourself in some way: not at all Total score: 13 Depression Screening Interpretation: Positive Depression Screening Follow-up: Existing condition, In treatment, Community Mental Health Worker F/U and Follow- up Visit Requested Depression Screening Done: Yes 56894 - PHQ-9 Billing: Yes Source: Developed by Drs. Prince Srivastava, Kori Phillips, Jose Sanders and colleagues, with an educational buddy from [employer]. Thrive Questionnaire Date Thrive assessed: 06/20/24 I am a: Patient What is your living situation today?: I have a place to live, but I am worried about losing it in the future Within the past 12 months, did the food you bought not last and you didn't have the money to get more?: Never true Within the past 12 months, did you worry whether your food would run out before you got money to buy more?: Never true Do you have trouble paying for medicines?: No Do you have trouble getting transportation to medical appointments?: No Do you have trouble paying your heating and electricity bill?: No Do you have trouble taking care of your child, family member or friend?: No Do you have trouble with day-to-day activities such as bathing, preparing meals, shopping, managing finances, etc.?: I choose not to answer this question Are you currently unemployed and looking for a job?: I choose not to answer this question Are you interested in more education?: I choose not to answer this question Please select the resources that you would like help with: None Currently or been in a relationship where the following occur: I choose not to answer THRIVE Score: 1 AUDIT C Alcohol Use Questionnaire (AUDIT-C) 1. How often do you have a drink containing alcohol?: Never 3. How often do you have six or more drinks on one occasion?: Never Total Score: 0 Score Reviewed/Action Taken: No ED-7 AMB Questionnaire ED-7 Date ED - 7 assessed: 06/20/24 Feeling nervous, anxious, or on edge: 2 = More than half the days Not being able to stop or control worryin = Nearly every day Worrying too much about different things: 3 = Nearly every day Trouble relaxin = Nearly every day Being so restless that it is hard to sit still: 3 = Nearly every day Becoming easily annoyed or irritable: 2 = More than half the days Feeling afraid as if something awful might happen: 3 = Nearly every day Total ED-7 score (0-4 normal; 5-9 mild; 10-14 moderate; 15-21 severe): 19 Source: Developed by Drs. Prince Srivastava, Kori Phillips, Jose Sanders and colleagues, with an educational buddy from [employer]. ED-7 Assessment Billing ED-7 Assessment Tool: ED-7 Assessment 69236 Review of Systems Const All systems reviewed & are unremarkable except as noted in HPI and below Card Denies chest pain at rest, Denies chest pain with activity, Denies edema, Denies irregular heart rhythm, Denies claudication, Denies dyspnea, Denies dyspnea on exertion, Denies orthopnea, Denies paroxysmal nocturnal dyspnea and Denies slow heart rate Resp Denies cough, Denies dyspnea and Denies dyspnea on exertion GI Denies abdominal pain, Denies change in bowel habits, Denies excessive flatus, Denies nausea and Denies vomiting Denies urinary incontinence, Denies urinary hesitancy and Denies urinary urgency Musc Denies abnormal gait, Denies atrophy, Denies deformity and Denies limited range of motion Skin/Breast Denies bleeding lesions, Denies changing lesions and Denies rash Neuro Denies abnormal gait, Denies behavioral changes and Denies lack of coordination Psych Denies behavioral changes Physical exam (Primary Care) Vital Signs: Last Vital Signs Temp 97.3 F 06/20/24 16:11 BP 140/86 H 06/20/24 16:11 BMI result Body Mass Index 28.0 Tobacco/Smoking Status: Tobacco use Status Tobacco use date assessed 06/20/24 06/20/24 16:21 Patient Tobacco Use Status Former Tobacco user 06/20/24 16:03 Tobacco use type Cigarette 06/20/24 16:03 e-Cigarette/Vaping Use Never Used 06/20/24 16:03 PHQ-9: PHQ-9 Score PHQ-9: Total score 13 06/20/24 16:32 Depression Screening Interpretation: Positive Depression Screening Follow-up: Existing condition, In treatment, Community Mental Health Worker F/U and Follow- up Visit Requested Thrive Assessment: Date of Thrive Assessment Date Thrive assessed 06/20/24 06/20/24 16:03 Currently or been in a relationship where the following occur: I choose not to answer Resp Effort & Inspection: normal respiratory effort Auscultation: clear to auscultation bilaterally Cardio Jugular venous distension: no JVD Rate: regular rate Rhythm: regular rhythm Heart sounds: S1 normal heart sound present and S2 normal heart sound present Extrem General: Yes full ROM Coding Level of Care Code Est Pt Level 4 (25160) Complex EM visit Add On G2211 Diagnoses Open wound of right lower leg, initial encounter S81.801A Encounter type: initial encounter Tachycardia R00.0 Lumbar pain M54.50 Mild recurrent major depression F33.0 ED (generalized anxiety disorder) F41.1 Additional Codes ED-7 Assessment Billing - ED-7 Assessment Tool: ED-7 Assessment [id number] ([id number]) PHQ-9 - 21339 - PHQ-9 Billing: Yes ([id number]) Time Spent (min) 23 Assessment & Plan Assessment & Plan (1) Open wound of right lower leg: Code(s): S81.801A - Unspecified open wound, right lower leg, initial encounter Category: Medical Qualifiers: Encounter type: initial encounter Qualified Code(s): S81.801A - Unspecified open wound, right lower leg, initial encounter (2) Tachycardia: Code(s): R00.0 - Tachycardia, unspecified Category: Medical (3) Lumbar pain: Code(s): M54.50 - Low back pain, unspecified Category: Medical (4) Mild recurrent major depression: Code(s): F33.0 - Major depressive disorder, recurrent, mild Category: Medical (5) ED (generalized anxiety disorder): Code(s): F41.1 - Generalized anxiety disorder Category: Medical Plan - Continue doxycycline for cellulitis - Referral to wound care clinic for further management and assessment of the leg wound - Arrange Holter monitoring for evaluation of recurrent palpitations - Referral to cardiology for further evaluation and management of possible arrhythmia - Address blood pressure concerns with appropriate management pending recent home monitoring results Patient was informed and verbally consented to the use of an ambient scribe for clinic note documentation during this visit. I discussed the current findings with the patient, explaining the diagnosis of cellulitis and the necessity for continued antibiotic therapy. I reinforced the importance of wound care and suggested a referral to a event set up specialist to enhance healing. Regarding her palpitations, I described the rationale for arranging a Holter monitor to assess for potential arrhythmias and emphasized a cardiology referral for comprehensive evaluation. I explained potential risks of untreated arrhythmias versus benefits of monitoring and early detection. The significance of familial cardiac history was reviewed. The patient was informed that a targeted blood pressure management plan would be put in place following further monitoring. Orders: Orders ECG holter monitor 24 hour Today R00.0 - Tachycardia, unspecified Referrals Wound Care Referral S81.801A - Unspecified open wound, right lower leg, initial encounter Cardiology Referral R00.0 - Tachycardia, unspecified Medications: Refilled tramadol 50 mg PO Q4-6H PRN 180 tabs 0RF pain 30 days Patient Instructions: - Continue taking doxycycline as prescribed - Keep the affected leg elevated and continue dressing changes as advised - Attend wound care clinic appointments - Document episodes of palpitations and any associated symptoms - Follow up with cardiology for further heart assessment - Maintain a low-salt diet and adhere to lifestyle modifications to manage hypertension - Return immediately if symptoms worsen or new symptoms arise
[2024-06-20 16:11] VITALS: BP 140/86; TEMP 36.3; BMI 28.0
--- OUTSIDE RECORDS SUMMARY | 2024-06-20 16:41 | XMS_ITS | Encounter Summary ---
Author Organization [employer] Address [address] [place] [address] Care Team Providers Care Jacket Preparer Name Role Phone Physician, Pcp Unknown Primary Care Provider Veronica vailable Reason for Visit * Reason Comments Lower Extremity Issue Encounter Details Date Type Department Care Team (Late st Contact Info) Description 06/15/2024 8:13 PM EST - 06/16/2024 1:23 AM EST Emergency [facility] Emergency [address] [place] [address] Cellulitis of right lower extremity (Primary Dx); Pain and swelling of right lower extremity Discharge Disposition: Home or Self Care Social History Tobacco Use Types Packs/Day Years Used Date Smoking Tobacco: Never Assessed Comments Unknown Sex and Gender Information Value Date Recorded Sex Assigned at Female 06/15/2024 8:24 PM EST Legal Sex Female 9:39 AM EST Gender Identity Female 06/15/2024 8:24 PM EST Sexual Orientation Straight 06/15/2024 8: 24 PM EST documented as of this encounter Last Filed Vital Signs Vital Sign Reading Time Taken Comments Blood Pressure 125/71 06/15/2024 8:19 PM EST Pulse 83 06/15/2024 8:19 PM EST Temperature 36.8 ??C (98.2 ??F) 06/15/2024 8:19 PM ES T Respiratory Rate 16 06/15/2024 8:19 PM EST Oxygen Saturation 100% 06/15/2024 8:19 PM EST Inhaled Oxygen Concentration - - Weight 81.6 kg (180 lb) 06/15/2024 8:19 PM EST Height 170.2 cm (5' 7 ) 06/15/2024 8:19 PM EST Body Mass Index 28.19 06/15/2024 8:19 PM EST documented in this encounter Discharge Instructions * Discharge Instructions* BOB Mcgee - 06/16/2024 1:09 AM EST Some concerns for a skin infection on your leg. No evidence of a blood clot on ultrasound. Please take the prescribed antibiotic twice daily as prescribed. Please monitor the signs and symptoms for any evidence of worsening which includes worsening swelling, pain, increasing area of redness or involvement of the area. If you experience any of these symptoms please call 911 or return to the emergency department for reevaluation. I recommend following up with your primary care provider. May use any [id number] pain control that you are able to take. I also recommend using warm compresses in this area to further encourage healing and avoid spread of any infection. * Attachments The following attachments cannot be sent through Care Everywhere. * Cellulitis (Stateless) documented in this encounter Medications at Time of Discharge doxycycline (VIBRAMYCIN) 100 mg capsule Take 1 capsule (100 mg total) by mouth 2 (two) times a day for 7 days. Take with at least 8 ounces (large glass) of water, do not lie down for 30 minutes after. Administer 2 hours before or after multivitamins, antacids, or other products containing polyvalent cations (i.e., calcium, iron, magnesium, selenium, zinc). 14 each 06/16/2024 5 documented as of this encounter Ordered Prescriptions Prescription Sig Dispense Quantity Refills Last Filled Start Date End Date doxycycline (VIBRAMYCIN) 100 mg capsule Take 1 capsule (100 mg total) by mouth 2 (two) times a day for 7 days. Take with at least 8 ounces (large glass) of water, do not lie down for 30 minutes after. Administer 2 hours before or after multivitamins, antacids, or other products containing polyvalent cations (i.e., calcium, iron, magnesium, selenium, zinc). 14 each 06/16/2024 5 documented in this encounter Discharge Disposition Disposition Code Departure Means Destination Comment s Home or Self Care documented in this encounter Progress Notes * Demetra Ortiz RN - 06/15/2024 8:13 PM EST PT BIBA FROM HOME, C/O RIGHT LOWER EXTREMITY SWELLING + REDNESS X5 DAYS. * BOB Mcgee - 06/15/2024 8:06 PM EST Emergency Medicine Note Patient Name: Delfina Rodriguez Initial Evaluation: 06/15/2024 : 1955 Patient's PCP: Pcp Unknown Physician Emergency Physician: BOB Mcgee History of Present Illness Chief Complaint: Chief Complaint Patient presents with Lower Extremity Issue HPI: 69-year-old female with reported history of eczema, mental health diagnoses presenting for 5 days of right lower extremity pain, swelling. Patient reports that secondary to her eczema she was itching in this area and caused a small abrasion which she believes is now infected. She was having some clear drainage from this area which is now progressed to pus. She has been trying to keep it clean and dry and covered but she has noticed that she is having some circumferential swelling distally,color change to red/purple. Swelling is also notable in her foot and is progressing proximally. Sheis tender locally. Was noticing some warmth in this area but denies any recently. No distal numbness or tingling. No deficits with ambulation but she does report it is painful. No history of clottingor DVTs, not on anticoagulants. ROS: I have performed a ROS with the pertinent positives and negatives documented in the history ofpresent illness. Previous History No past medical history on file. No past surgical history on file. No family history on file. has No Known Allergies. No current facility-administered medications on file prior to encounter. No current outpatient medications on file prior to encounter. Physical Exam ED Triage Vitals [06/15/24 2019] Temp Heart Rate Resp BP 36.8 ??C (98.2 ??F) 83 16 125/71 SpO2 Temp Source Heart Rate Source Patient Position 100 % Oral -- -- BP Location FiO2 (%) Right arm -- Physical Exam Constitutional: General: She is awake. She is not in acute distress. Appearance: Normal appearance. She is not ill-appearing or toxic-appearing. HENT: Head: Normocephalic and atraumatic. Eyes: Conjunctiva/sclera: Conjunctivae normal. Pulmonary: Effort: Pulmonary effort is normal. No respiratory distress or retractions. Musculoskeletal: General: Normal range of motion. Cervical back: Normal range of motion and neck supple. Right lower leg: Swelling and tenderness present. No deformity, lacerations or bony tenderness. 2+ Edema present. Left lower leg: Normal. Skin: General: Skin is warm and dry. Comments: Mid anterior right brewer with approximately dime sized area of shallow ulceration with purulence centrally. Neurological: Mental Status: She is alert, oriented to person, place, and time and easily aroused. Mental status is at baseline. Gait: Gait normal. Psychiatric: Mood and Affect: Mood normal. Behavior: Behavior normal. Thought Content: Thought content normal. Judgment: Judgment normal. Results Labs Reviewed BASIC METABOLIC PANEL - Abnormal Result Value Sodium 143 Potassium 3.5 Chloride 111 (*) CO2 29 Anion Gap 3 Glucose 147 (*) BUN 12 Creatinine 0.66 eGFR 96 BUN/Creatinine Ratio 18.2 Calcium 8.6 CBC WITH AUTO DIFFERENTIAL - Abnormal WBC 3.5 (*) RBC 3.90 Hemoglobin 11.6 Hematocrit 35.8 MCV 93.0 MCH 30.1 MCHC 32.4 RDW 12.8 Platelets 254 MPV 9.9 NRBC 0.0 NRBC Absolute 0.00 Neutrophils Relative 49.3 Lymphocytes Relative 37.0 Monocytes Relative 8.9 Eosinophils Relative 3.4 Basophils Relative 1.1 Immature Granulocytes Relative 0.3 Neutrophils Absolute 1.72 Lymphocytes Absolute 1.29 Monocytes Absolute 0.31 Eosinophils Absolute 0.12 Basophils Absolute 0.04 Immature Granulocytes Absolute 0.01 PROTHROMBIN TIME WITH INR - Normal Protime 12.6 INR 1.0 CULTURE WOUND WITH GRAM STAIN CBC AND DIFFERENTIAL Narrative: The following orders were created for panel order CBC and differential. Procedure Abnormality Status --------- ------ CBC auto differential[[id number]] Abnormal Final result Please view results for these tests on the individual orders. Abnormal Labs Reviewed BASIC METABOLIC PANEL - Abnormal; Notable for the following components: Result Value Chloride 111 (*) Glucose 147 (*) All other components within normal limits CBC WITH AUTO DIFFERENTIAL - Abnormal; Notable for the following components: WBC 3.5 (*) All other components within normal limits Vascular US Duplex Lower Extremity Venous Right I have discussed the incidental/abnormal imaging and/or lab abnormalities with the patient and haveinstructed them the need for further evaluation and workup with their primary care doctor. I have provided the patient with a paper copy of the abnormality. The laboratory results, imaging results and other diagnostic exam results were reviewed in the EMR. EKG Interpretation Critical Care Time None ? Medical Decision Making DDX: DVT, cellulitis, abscess, compartment ulceration, PVD 61-year-old female with 5 days of right lower extremity pain, swelling. Leg is edematous, significant color change distally but she does have swelling that progresses proximally. Exam is most concerning for cellulitis particularly given history of symptoms as well as purulent ulceration at the anterior aspect prescription. Will send for ultrasound to rule out underlying DVT. Wound culture obtained. Medications naproxen (NAPROSYN) tablet 500 mg (500 mg oral Given 06/15/242356) doxycycline (MONODOX) capsule 100 mg (100 mg oral Given 06/16/24109) ED Course as of 06/16/24109 Sun Jun 16, 2024109 Wet read ultrasound shows no signs of DVT. Labs are largely unremarkable. Wound culture is pending. Patient will be given initial dose of doxycycline for management of likely cellulitis. Will beotherwise appropriate for discharge with additional antibiotic regimen. Return precautions discussed. [EN] ED Course User Index [EN] BOB Mcgee Clinical Impressions as of 06/16/24109 Pain and swelling of right lower extremity Cellulitis of right lower extremity Procedures Procedures Diagnosis 1. Cellulitis of right lower extremity 2. Pain and swelling of right lower extremity Vascular US Duplex Lower Extremity Venous Right Vascular US Duplex Lower Extremity Venous Right Disposition Discharge ED Prescriptions Medication Sig Dispense Start Date End Date Auth. Provider doxycycline (VIBRAMYCIN) 100 mg capsule Take 1 capsule (100 mg total) by mouth 2 (two) times a day for 7 days. Take with at least 8 ounces (large glass) of water, do not lie down for 30 minutes after. Administer 2 hours before or after multivitamins, antacids, or other products containing polyvalent cations (i.e., calcium, iron, magnesium, selenium, zinc). 14 each 06/16/2024 06/23/2024 BOB Mcgee Physician Attestation BOB Mcege 06/15/242115 BOB Mcgee 06/15/242126 BOB Mcgee 06/15/242128 BOB Mcgee 06/16/24 0110 Cosigned by Pavel Duran MD at 06/16/2024 11:39 PM EST documented in this encounter Plan of Treatment Not on file documented as of this encounter Procedures Procedure Name Priority Date/Time Associated Diagnosis Comments CBC WITH AUTO DIFFERENTIAL STAT 06/15/2024 9:20 PM EST PROTHROMBIN TIME WITH INR STAT 06/15/2024 9:20 PM EST CBC AND DIFFERENTIAL STAT 06/15/2024 9:20 PM EST BASIC METABOLIC PANEL STAT 06/15/2024 9:20 PM EST CULTURE WOUND WITH GRAM STAIN STAT 06/15/2024 9:15 PM EST VAS US DUPLEX LOWER EXT VENOUS RIGHT STAT 06/15/2024 9:12 PM EST Pain and swelling of right lower extremity documented in this encounter Results * Protime-INR (06/15/2024 9:20 PM EST) Protime 12.6 10.6 - 13.9 sec LAB COAGULATION METHOD 06/15/2024 9:37 PM EST [facility] INR 1.0 LAB COAGULATION METHOD 06/15/2024 9:37 PM EST [facility] Blood Venous blood specimen / Unknown Venipuncture / Unknown 06/15/2024 9:20 PM EST 06/15/2024 9:25 PM EST us Harmony ROJAS LAB BLOOD ORDERABLES Final Resul t [facility] [address] [place] [address], * (ABNORMAL) CBC auto differential (06/15/2024 9:20 PM EST) [facility] WBC 3.5(L) 4.8 - 10.8 K/mcL LAB HEMETOLOGY METHOD 06/15/2024 9:31 PM EST [facility] RBC 3.90 3.80 - 4.80 M/mcL LAB HEMETOLOGY METHOD 06/15/2024 9:31 PM EST [facility] Hemoglobin 11.6 11.5 - 16.0 g/dL LAB HEMETOLOGY METHOD 06/15/2024 9:31 PM EST [facility] Hematocrit 35.8 35.0 - 47.0 % LAB HEMETOLOGY METHOD 06/15/2024 9:31 PM [facility] MCV 93.0 79.0 - 98.0 FL LAB HEMETOLOGY METHOD 06/15/2024 9:31 PM EST [facility] MCH 30.1 27.0 - 32.0 pcg LAB HEMETOLOGY METHOD 06/15/2024 9:31 PM EST [facility] MCHC 32.4 32.0 - 37.0 g/dL LAB HEMETOLOGY METHOD 06/15/2024 9:31 PM EST [facility] RDW 12.8 11.0 - 15.0 % LAB HEMETOLOGY METHOD 06/15/2024 9:31 PM [facility] Platelets 254 130 - 400 K/mcL LAB HEMETOLOGY METHOD 06/15/2024 9:31 PM EST [facility] MPV 9.9 7.0 - 11.0 FL LAB HEMETOLOGY METHOD 06/15/2024 9:31 PM EST [facility] NRBC 0.0 <1.0 % LAB HEMETOLOGY METHOD 06/15/2024 9:31 PM [facility] NRBC Absolute 0.00 <0.10 K/mcL LAB HEMETOLOGY METHOD 06/15/2024 9:31 PM [facility] Neutrophils Relative 49.3 % LAB HEMETOLOGY METHOD 06/15/2024 9:31 PM [facility] Lymphocytes Relative 37.0 % LAB HEMETOLOGY METHOD 06/15/2024 9:31 PM [facility] Monocytes Relative 8.9 % LAB HEMETOLOGY METHOD 06/15/2024 9:31 PM [facility] Eosinophils Relative 3.4 % LAB HEMETOLOGY METHOD 06/15/2024 9:31 PM [facility] Basophils Relative 1.1 % LAB HEMETOLOGY METHOD 06/15/2024 9:31 PM [facility] Immature Granulocytes Relative 0.3 % LAB HEMETOLOGY METHOD 06/15/2024 9:31 PM [facility] Neutrophils Absolute 1.72 1.50 - 7.00 K/mcL LAB HEMETOLOGY METHOD 06/15/2024 9:31 PM [facility] Lymphocytes Absolute 1.29 1.00 - 5.00 K/mcL LAB HEMETOLOGY METHOD 06/15/2024 9:31 PM [facility] Monocytes Absolute 0.31 0.20 - 1.00 K/mcL LAB HEMETOLOGY METHOD 06/15/2024 9:31 PM [facility] Eosinophils Absolute 0.12 0.00 - 0.50 K/mcL LAB HEMETOLOGY METHOD 06/15/2024 9:31 PM [facility] Basophils Absolute 0.04 0.00 - 0.20 K/mcL LAB HEMETOLOGY METHOD 06/15/2024 9:31 PM [facility] Immature Granulocytes Absolute 0.01 0.00 - 0.03 K/mcL LAB HEMETOLOGY METHOD 06/15/2024 9:31 PM [facility] Blood Venous blood specimen / Unknown Venipuncture / Unknown 06/15/2024 9:20 PM EST 06/15/2024 9:25 PM EST us Pavel Duran MD LAB BLOOD ORDERABLES Roxy l Result [facility] [address] [place] [address], [place] [phone] * (ABNORMAL) Basic metabolic panel (06/15/2024 9:20 PM EST) Sodium 143 133 - 145 mmol/L LAB CHEMISTRY METHOD 06/15/2024 9:51 PM [facility] Potassium 3.5 3.5 - 5.5 mmol/L LAB CHEMISTRY METHOD 06/15/2024 9:51 PM [facility] Chloride 111(H) 96 - 110 mmol/L LAB CHEMISTRY METHOD 06/15/2024 9:51 PM [facility] CO2 29 21 - 32 mmol/L LAB CHEMISTRY METHOD 06/15/2024 9:51 PM [facility] Anion Gap 3 3 - 11 LAB CHEMISTRY METHOD 06/15/2024 9:51 PM [facility] Glucose 147(H) 70 - 100 mg/dL LAB CHEMISTRY METHOD 06/15/2024 9:51 PM [facility] BUN 12 5 - 25 mg/dL LAB CHEMISTRY METHOD 06/15/2024 9:51 PM [facility] Creatinine 0.66 0.50 - 1.10 mg/dL LAB CHEMISTRY METHOD 06/15/2024 9:51 PM [facility] eGFR 96 >=60 mL/min/1. 73m2 LAB CHEMISTRY METHOD 06/15/2024 9:51 PM [facility] Comment:Calculation based on the??Chronic Kidney Disease Epidemiology Collaboration (CKD-EPI) equation refit??without adjustment for race. BUN/Creatinine Ratio 18.2 LAB CHEMISTRY METHOD 06/15/2024 9:51 PM EST [facility] Calcium 8.6 8.5 - 10.5 mg/dL LAB CHEMISTRY METHOD 06/15/2024 9:51 PM EST [facility] Blood Venous blood specimen / Unknown Venipuncture / Unknown 06/15/2024 9:20 PM EST 06/15/2024 9:25 PM EST us Pavel Duran MD LAB BLOOD ORDERABLES Roxy l Result [facility] [address] [place] [address], [place] [phone] * (ABNORMAL) Culture wound with gram stain (06/15/2024 9:15 PM EST) Culture, Wound Methicillin-Resista nt Staphylococcus aureus(A) SANTIAGO 06/18/2024 10:07 AM [facility] Comment: The organism value for this result has been updated. These results have been appended to the previously preliminary verified report. Edited result: Previously reported as Staphylococcus aureus on 06/16/2024 at 1345 EST. Gram Stain Result No polymorphonuclear leukocytes seen(A) 06/18/2024 10:07 AM [facility] Gram Stain Result Rare Epithelial cells(A) 06/18/2024 10:07 AM [facility] Gram Stain Result Moderate Gram positive cocci(A) 06/18/2024 10:07 AM [facility] Swab Structure of right lower limb / Unknown Non-blood Collection / Unknown 06/15/2024 9:15 PM EST 06/15/2024 9:25 PM EST Narrative Organism Antibiotic Method Susceptibility Methicillin-Resistant Staphylococcus aureus Benzylpenicillin SANTIAGO >=0.5 ug/ml: Resistant Methicillin-Resistant Staphylococcus aureus Oxacillin SANTIAGO >=4 ug/ml: Resistant Methicillin-Resistant Staphylococcus aureus Gentamicin SANTIAGO <=0.5 ug/ml: Susceptible Methicillin-Resistant Staphylococcus aureus Ciprofloxacin SANTIAGO <=0.5 ug/ml: Susceptible Methicillin-Resistant Staphylococcus aureus Levofloxacin SANTIAGO 0.25 ug/ml: Susceptible Methicillin-Resistant Staphylococcus aureus Erythromycin SANTIAGO <=0.25 ug/ml: Susceptible Methicillin-Resistant Staphylococcus aureus Clindamycin SANTIAGO <=0.25 ug/ml: Susceptible Methicillin-Resistant Staphylococcus aureus Linezolid SANTIAGO 2 ug/ml: Susceptible Methicillin-Resistant Staphylococcus aureus Vancomycin SANTIAGO 1 ug/ml: Susceptible Methicillin-Resistant Staphylococcus aureus Tetracycline SANTIAGO <=1 ug/ml: Susceptible Methicillin-Resistant Staphylococcus aureus Rifampin SANTIAGO <=0.5 ug/ml: Susceptible Methicillin-Resistant Staphylococcus aureus Trimethoprim/Sulfamethoxazo le SANTIAGO <=10 ug/ml: Susceptible us Harmony ROJAS LAB MICROBIOLOGY - GENERAL ORDER OSIEL Final Result [facility] [address] [place] [address], * Vascular US Duplex Lower Extremity Venous Right (06/15/2024 9:12 PM EST) Anatomical Region Laterality Modality Vascular, Abdomen Ultrasound 06/16/2024 9:46 AM EST Impressions 06/16/2024 9:46 AM EST NO RIGHT LOWER EXTREMITY DEEP VENOUS THROMBOSIS. -------- FINAL REPORT -------- Dictated By: Melchor Malloy Dictated Date: 06/16/2024 09:46 ET Assigned Physician: Melchor Malloy Reviewed and Electronically Signed By: Melchor Malloy Signed Date: 06/16/2024 09:46 ET Workstation ID: [id number] Transcribed By: Self Edit Transcribed Date: 06/16/2024 09:46 ET Narrative 06/16/2024 9:46 AM EST Ultrasound duplex right lower extremity. INDICATION: r/o dvt TECHNIQUE: 2-D and color Doppler imaging of the right lower extremity venous vasculature with compression and augmentation maneuvers. COMPARISON: No priors available. FINDINGS: There is normal flow, compression, and augmentation from the common femoral through the popliteal vein. No fluid collection. Procedure Note Melchor Malloy MD - 06/16/2024 Ultrasound duplex right lower extremity. INDICATION: r/o dvt TECHNIQUE: 2-D and color Doppler imaging of the right lower extremityvenous vasculature with compression and augmentation maneuvers. COMPARISON: No priors available. FINDINGS: There is normal flow, compression, and augmentation from the commonfemoral through the popliteal vein. No fluid collection. IMPRESSION: NO RIGHT LOWER EXTREMITY DEEP VENOUS THROMBOSIS. -------- FINAL REPORT -------- Dictated By: Melchor Malloy Dictated Date: 06/16/2024 09:46 ET Assigned Physician: Melchor Malloy Reviewed and Electronically Signed By: Melchor Malloy Signed Date: 06/16/2024 09:46 ET Workstation ID: [id number] Transcribed By: Self Edit Transcribed Date: 06/16/2024 09:46 ET us Harmony ROJAS CV VASCULAR PROCEDURES Final Res ult documented in this encounter Visit Diagnoses Diagnosis Cellulitis of right lower extremity- Primary Pain and swelling of right lower extremity documented in this encounter Administered Medications Inactive Administered Medications - up to 3 most recent administrations Medication Order MAR Action Action Date Dose Rate Site doxycycline (MONODOX) capsule 100 mg 100 mg, oral, Once, On 06/16/24 at 0105, For 1 dose, Take with at least 8 ounces (large glass) of water, do not lie down for 30 minutes after. Administer 2 hours before or after multivitamins, antacids, or other products containing polyvalent cations (i.e., calcium, iron, magnesium, selenium, zinc)., Indication: Skin/Soft Tissue Given 06/16/2024 1:10 AM EST 100 mg naproxen (NAPROSYN) tablet 500 mg 500 mg, oral, Once, On 06/15/24 at 2329, For 1 dose Given 06/15/2024 11:57 PM EST 500 mg documented in this encounter Active and Recently Administered Medications Times are shown in EST. Scheduled Medication Order 06/14/2024 06/15/2024 06/16/2024 doxycycline (MONODOX) capsule 100 mg (COMPLETED) 100 mg, oral, Once, On 06/16/24 at 0105, For 1 dose, Take with at least 8 ounces (large glass) of water, do not lie down for 30 minutes after. Administer 2 hours before or after multivitamins, antacids, or other products containing polyvalent cations (i.e., calcium, iron, magnesium, selenium, zinc)., Indication: Skin/Soft Tissue 0110 (Given - Provid er: Demetra Ortiz RN) naproxen (NAPROSYN) tablet 500 mg (COMPLETED) 500 mg, oral, Once, On 06/15/24 at 2329, For 1 dose 2357 (Given - Provider: Demetra Ortiz RN) documented in this encounter Care Teams Jacket Preparer Relationship Specialty Start Date End Date Physician, Pcp Unknown PCP - General 06/15/24 documented as of this encounter
--- OUTSIDE RECORDS SUMMARY | 2024-06-20 16:41 | XMS_ITS | Continuity of Care Document ---
Author Organization [email or web address], [facility] Address [address] [place] [phone] Care Team Providers Care Cardroom Attendant Name Role Phone HIM CCA OTHER Assessment Encounter Date Assessment Date Assessment LastModified by Organization Details LastModified Time 06/15/2024 06/15/2024 As noted, we amador greene called to see this patient regarding concerns of cellulitis. Evaluation in the field was performed by my aba therapist colleague, as noted above, I provided real-time direction and supervision for this visit. The evaluation revealed 69yF with cellulitis and tachycardia, initiated fluids but during monitoring HR jumping rapidly b/w 80s and 150s. Given cardiac instability, referred to ER. Impression: tachycardia, cellulitis, hypokalemia, hemodynamically stable Plan: refer to ER Primary care[facility] 06/15/2024 19:30:37 Plan of Treatment Reminders Order Date Submit Date Provider Last Modified By Organization Details Last Modified Time Details Appointments None recorded. Lab BMP, serum or plasma 2024 025 JAMEEL [facility], [address] [place] [address], [phone], 08:43:15 Referral None recorded. Procedures None recorded. Surgeries None recorded. Imaging None recorded. Medication Orders lactated Ringers intravenous solution [address] [facility][id number], [address], [place], [id number], 5 18:48:12 acetaminoph en 500 mg tablet [address] [facility] #[id number], [address], [place], [id number], 5 18:48:12 Patient TargetsNo targets recorded. Patient InstructionsNo instructions recorded. Reason for Referral None Reported. Results Created Date Observation Date Name Description Value Unit Range Abnormal Flag Note LastModifiedBy Organization Detail LastModifiedTime Result Notes None recorded. Medical Equipment None Reported. Allergies No known drug allergies Medications Name Sig Start Date Stop Date Status Note LastModified by Organization Details LastModified Time celecoxib 200 mg capsule TAKE 1 CAPSULE BY MOUTH TWICE DAILY active Not Available Not Available No t Available clonazepam 0.5 mg tablet TAKE 1 TABLET BY MOUTH TWICE DAILY NEEDED active Not Available Not Available No t Available Calcium Antacid 200 mg (as calcium carbonate 500 mg) chewable tablet CHEW AND SWALLOW 1 TABLET BY MOUTH TWICE DAILY active Not Available Not Available No t Available omeprazole 40 mg capsule,oriana yed release TAKE 1 CAPSULE BY MOUTH DAILY active Not Available Not Available Not Available tramadol 50 mg tablet TAKE 1 TABLET BY MOUTH EVERY 4 TO 6 HOURS NEEDED FOR PAIN active Not Available Not Available No t Available zolpidem 10 mg tablet TAKE 1 TABLET BY MOUTH AT BEDTIME NEEDED FOR SLEEP active Not Available Not Available No t Available fluticasone propionate 50 mcg/actuatio n nasal spray,suspen thomas SHAKE LIQUID AND USE 1 SPRAY IN EACH NOSTRIL DAILY active Not Available Not Available No t Available Ventolin HFA 90 mcg/actuatio n aerosol inhaler INHALE 2 PUFF BY MOUTH EVERY 6 HOURS NEEDED FOR BRONCHOSPAS M active Not Available Not Available No t Available Wellbutrin SR 200 mg tablet, 12 hr sustained-re lease TAKE 1 TABLET BY MOUTH TWICE DAILY active Not Available Not Available No t Available cholecalcife rol (vitamin D3) 25 mcg (1,000 unit) tablet TAKE 1 TABLET BY MOUTH EVERY DAY active Not Available Not Available No t Available [employer]NOW COVID-19 Ag Self Test kit TEST DIRECTED TODAY active Not Available Not Available No t Available Vitals Date Recorded Heart rate Respiratory rate Oxygen saturation Oxygen saturation in Arterial blood by Pulse oximetry Body temperature Systolic blood pressure Diastolic blood pressure Provider Name and Address Organization Details Last Updated DateTime 5 149 /min 20 /min 97 % 97 % 98 [degF] 126 mm[Hg] 77 mm[Hg] Not Available [facility] - production 5 18:37:20 Social History None recorded. Functional Status None recorded. Mental Status None recorded. Family History Nothing Reported. Medical History No medical history recorded. Gynecological HistoryNo gynecological history recorded. Obstetrics History GPAL:G 0 P 0 0 0 0 Past Encounters Encounter ID Performer Location Encounter Start Date Encounter Closed Date Diagnosis/Indication Diagnosis SNOMED-CT Code Diagnosis ICD10 Code Diagnosis Note [id number] Holly Orr MD Main - [facility] [address] [place] [address] 06/15/2024 18:28:00 06/16/2024 15:21:13 Infection of skin and/or subcutaneous tissue 97173037 L08.9 Tachycardia 8361654 R00. 0 Health Concerns Section Related Observation LastModified by Organization Detai ls LastModified Time None Recorded Concern Status LastModified by Organization Details LastModified Time None Recorded Payers Encounter Date Sequence Insurance Name Policy Number Policy Hodges Covered Member ID Hodges Member ID Guarantor Name 06/15/2024 1 [facility] - DOS ON OR AFTER 2022 - DUAL ELIGIBLE - CUSTODIAL OPTIONS AND ONE CARE (MEDICARE REPLACEMENT/AD VANTAGE - HMO) Delfina Rodriguez [id number] Delfina Rodriguez Notes Date Note Type Note Provider Name and Address Organization Details Recorded Time 06/15/2024 text/html CRC Nurse Triage Notes (Seven Saleh - LISSA): Denies: Mc ? Flash, circumferential mc Mc reported with black tissue to the area Open skin area after a fall with uncontrolled bleeding Abscess/infection with streaking noted, presence of fever or without Chief Complaints: Wound careH Reviewed at 06/14/2024 - :08Allergies Reviewed at 06/14/2024 - 15:08Comments: Erp Implementation Consultant verified the patient's name//address and phone number. Pt reports a wound to her R Leg, pt reports she believes she may have been bit by a mosquito. Pt reports initially area healed, but now area is red and swollen, and their is drainage from the wound. Pt states it is draining water . Education provided on the response time and the patient was advised to monitor reported s/s and seek emergency treatment if needed -Vicki Saleh RN Real Estate Teacher Organization Information for [email or web address] Legal Name: [employer]? Address: [address] [place] [address], Rigger: Gregory Regalado MD CLIA No.: [id number] Real Estate Teacher POC Test Results from Nate Garcia - ALS EKG (18:53:23) EKG test performed. Attachments uploaded as part of this test result can be found under Documents section. iSTAT Chem8+ (19:18:13) Na: 140 mEq/L K: 3.2 mEq/L Cl: 106 mEq/L iCa: 1.14 mmol/L TCO2: 26 mmol/L Glu: 181 mg/dL BUN: 12 mg/dL Crea: 0.6 mg/dL Hct: 38 % Hb: 12.9 g/dL A Attachments uploaded as part of this test result can be found under Documents section. ..................... ..................... ..................... ..................... ..................... ..................... ............... Real Estate Teacher Note From Nate Garcia: SC12 dispatched to the address listed above for the report of a female alliance party with a leg wound. Arrival on scene, patient was found in home ambulating well to a chair seated, alert and oriented x4, patent airway, breathing non labored speaking in complete sentences, skin WPD in no immediate distress. +/= Chest rise. -SOB, -CP. -NVD, -Trauma, -Fever. GCS 15. Lung sounds clear in all weiss. Abdomen soft non tender. Patient reports that she has a wound to the right lower leg approximately the size of a dime x1 week, pain upon palpation, pus discharge from wound, hot to the touch, redness to the wound area, and increased swelling. Patient denies any history of abscesses or cellulitis. Patient denies any kidney disorders, denies any chest pain, denies shortness of breath, denies NVD, denies recent trauma, denies fevers. Patient vital signs obtained as noted, SC noted patient HR of 140-150 which pulse that matches HR. Patient denies any cardiac disorders and denies taking an cardiac medications. HR noted to increase and decrease 90 and 150s intermittently, lasting about 2 minutes each. Patient reports palpitations when heart rate increases. Patient denies dizziness or blurred vision. [facility] was consulted, provided orders for IV access, blood draw for BMP, 1 Liter NS, and 12 Lead EKG. 12 Lead EKG performed and uploaded to [facility] for remote interpretation, monitor advised supraventricular tachycardia. 20 gauge IV established in left AC, labs drawn for BMP, and NS fluid infusion initiated. About 700ml administered throughout patient care with minimal changes in HR. BMP ISTAT performed as noted. [facility] consulted again, advised that she recommends that patient go to the ED due to heart rate and no change with fluids. Patient agreed to go to the hospital, 911 called. [facility] arrival on scene, patient report provided and care was transferred. EMS assisted on scene as needed until transport. SC12 clear. ..................... ..................... ..................... ..................... ..................... ..................... ............... [facility] Consulted: Holly Orr ..................... ..................... ..................... ..................... ..................... ..................... ............... Disposition: Fulfilled Holly Orr MD [address] [facility],[address], [place], [address], DARRELL CORBETT 06/15/2024 20:16:32 OBGyn Episode No OBEpisode recorded.
--- OUTSIDE RECORDS SUMMARY | 2024-06-20 16:41 | XMS_ITS | Data Portability ---
Author Organization [employer] [facility], [place] [facility] Address [address] [place] [phone] Care Team Providers Care Compensation Adjuster Name Role Phone HIM CCA OTHER Assessment Encounter Date Assessment Date Assessment LastModified by Organization Details LastModified Time 06/15/2024 06/15/2024 As noted, we wer e called to see this patient regarding concerns of cellulitis. Evaluation in the field was performed by my alumni coordinator colleague, as noted above, I provided real-time direction and supervision for this visit. The evaluation revealed 69yF with cellulitis and tachycardia, initiated fluids but during monitoring HR jumping rapidly b/w 80s and 150s. Given cardiac instability, referred to ER. Impression: tachycardia, cellulitis, hypokalemia, hemodynamically stable Plan: refer to ER Primary care, [facility] Not available 06/15/2024 19:30:37 Plan of Treatment Reminders Order Date Submit Date Provider Last Modified By Organization Details Last Modified Time Details Appointments None recorded. Lab BMP, serum or plasma 2024 025 JAMEEL [facility], [address] [place] [address], [phone], 08:43:15 Referral None recorded. Procedures None recorded. Surgeries None recorded. Imaging None recorded. Medication Orders lactated Ringers intravenous solution 2024 025 [facility] #[id number], [address] [place], [place], [id number], 5 18:48:12 acetaminoph en 500 mg tablet 2024 025 [facility] #[id number], [address] [place], [place], [id number], 5 18:48:12 Patient TargetsNo targets recorded. Patient [...] SNOMED-CT Code Diagnosis ICD10 Code Diagnosis Note [id number] Holly Orr MD Main - [facility] [address] [place] [address] 06/15/2024 18:28:00 06/16/2024 15:21:13 Infection of skin and/or subcutaneous tissue 43492778 L08.9 Tachycardia 6511490 R00. 0 Health Concerns Section Related Observation LastModified by Organization Detai ls LastModified Time None Recorded Concern Status LastModified by Organization Details LastModified Time None Recorded Advance Directives Directive None Recorded Payers Encounter Date Sequence Insurance Name Policy Number Policy Hodges Covered Member ID Hodges Member ID Guarantor Name 06/15/2024 1 [facility] - DOS ON OR AFTER 2022 - DUAL ELIGIBLE - [employer] OPTIONS AND ONE CARE (MEDICARE REPLACEMENT/AD VANTAGE - HMO) Delfina Rodriguez [id number] Delfina Rodriguez Notes Date Note Type Note Provider Name and Address Organization Details Recorded Time 06/15/2024 text/html CRC Nurse Triage Notes (Seven Saleh - LISSA): Denies: Mc ? Flash, circumferential mc Mc reported with black tissue to the area Open skin area after a fall with uncontrolled bleeding Abscess/infection with streaking noted, presence of fever or without Chief Complaints: [facility] Reviewed at 06/14/2024 - :08Allergies Reviewed at 06/14/2024 - 15:08Comments: Street Light Servicer Supervisor verified the patient's name//address and phone number. [...] emergency treatment if needed -Vicki Saleh RN Nail Tech Organization Information for [employer] Legal Name: [employer]? Address: [address] [place] [address], Tile Mechanic Helper: Gregory BARCENASNJ No.: [id number] Nail Tech POC Test Results from Nate Garcia - [...] ..................... ..................... ..................... ..................... ..................... ..................... ............... Nail Tech Note From Nate Garcia: SC12 dispatched to [...] increases. Patient denies dizziness or blurred vision. [facility] was consulted, provided orders for IV access, blood draw for BMP, 1 Liter NS, and 12 Lead EKG. 12 Lead EKG performed and uploaded to [employer] for remote interpretation, monitor advised supraventricular tachycardia. 20 gauge IV established in left AC, labs drawn for BMP, and NS fluid infusion initiated. About 700ml administered throughout patient care with minimal changes in HR. BMP ISTAT performed as noted. [facility] consulted again, advised that she recommends that patient go to the ED due to heart rate and no change with fluids. Patient agreed to go to the hospital, 911 called. [facility] arrival on scene, patient report provided and care was transferred. EMS assisted on scene as needed until transport. SC12 clear. ..................... ..................... ..................... ..................... ..................... ..................... ............... [facility] Consulted: Holly Orr ..................... ..................... ..................... ..................... ..................... ..................... ............... Disposition: Fulfilled Holly Orr MD [address] [place] [address],[address], [place], [address], DARRELL CORBETT 06/15/2024 20:16:32 OBGyn Episode No OBEpisode recorded.
--- OUTSIDE RECORDS SUMMARY | 2024-06-20 16:41 | XMS_ITS | Clinical Summary ---
Author Organization [facility] Address [address] [place] [address] Care Team Providers Care Jewelry Manager Name Role Phone Unavailable Primary Care Provider Unavailabl e Source Comments PLEASE NOTE, if this patient is a minor, it may be UNLAWFUL to discuss sensitive information that is contained in these records (such as FAMILY PLANNING, MENTAL HEALTH or SUBSTANCE ABUSE) with the minor patient's parent or other person without the patient's specific authorization.[facility] Allergies No known active allergies Medications WELLBUTRIN SR 200 mg 12 hr tablet Take 200 mg by mouth 2 (two) times daily 10/22/2020 Active cholecalciferol , vitamin D3, 25 mcg (1,000 unit) tablet Take 1 Tablet by mouth once daily 12/21/2020 Active clonazePAM (KLONOPIN) 0.5 mg tablet Take 0.5 mg by mouth 2 (two) times daily as needed for anxiety 12/21/2020 Active diclofenac sodium (VOLTAREN) 1 % gel APPLY 1 TO 2 GRAMS 3 TO 4 TIMES PER DAY NEEDED FOR PAIN 10/22/2020 Active traMADoL (ULTRAM) 50 mg tablet Take 50 mg by mouth every 4 to 6 (four to six) hours as needed for pain 12/17/2020 Active zolpidem (AMBIEN) 10 mg tablet Take 10 mg by mouth nightly at bedtime 12/21/2020 Active Active Problems Problem Noted Date Diagnosed Date Bilateral chronic knee pain 01/13/2021 Chronic midline low back pain without sciatica 0 01/13/2021 Social History Tobacco Use Types Packs/Day Years Used Date Smoking Tobacco: Every Day Cigarettes Smokeless Tobacco: Never Comments:6.5 cigarettes a da ys Alcohol Use Standard Drinks/Week Comments Not Currently 0 (1 standard drink = 0.6 oz pur e alcohol) Social Connections Answer Date Recorded Connectedness 0 01/13/2021 Financial Resource Strain Answer Date R ecorded Financial Resource Strain 0 2020 Stress Answer Date Recorded Stress 0 01/13/2021 Physical Activity Answer Date Recorded Physical Activity 0 01/13/2021 Food Insecurity Answer Date Recorded Food 0 01/13/2021 Transportation Needs Answer Date Record ed Transportation 0 01/13/2021 Housing Stability Answer Date Recorded Housing 0 01/13/2021 Safety and Environment Answer Date Gary rded Safety 0 01/13/2021 Utilities Answer Date Recorded Utilities 0 01/13/2021 Employment Answer Date Recorded Employment 0 01/13/2021 Comments No Sex and Gender Information Value Date Recorded Sex Assigned at Female 01/13/2021 12:14 PM PDT Legal Sex Female 11:52 AM PDT Gender Identity Female 01/13/2021 12:14 PM PDT Sexual Orientation Straight 01/13/2021 12 :14 PM PDT Last Filed Vital Signs Vital Sign Reading Time Taken Comments Blood Pressure 122/72 01/13/2021 2:35 PM EDT Pulse 68 01/13/2021 2:35 PM EDT Temperature 37 ??C (98.6 ??F) 01/13/2021 2:35 PM EDT Respiratory Rate 20 01/13/2021 2:35 PM EDT Oxygen Saturation - - Inhaled Oxygen Concentration - - Weight 78.9 kg (174 lb) 01/13/2021 2:35 PM EDT Height 163 cm (5' 4.17 ) 01/13/2021 2:35 PM EDT Body Mass Index 29.71 01/13/2021 2:35 PM EDT Plan of Treatment Not on file Insurance [facility] [employer] Member Subscriber Plan / Payer (Ef fective 2017-Present) Name:Delfina Rodriguez Relation to Subscriber:Self Name:Delfina Rodriguez Payer ID:[id number] Group ID:Not on file Type:Mega Address: [facility] [address] [address] [facility] [employer] - DENTAL Member Subscriber Plan / Payer (Ef fective for All Dates) Name:Delfina Rodriguez Member ID:Not on file Relation to Subscriber:Self Name:Delfina Rodriguez Subscriber ID:Not on file Payer ID:[id number] Group ID:Not on file Type:Medicare Address: [place] [id number]
--- OUTSIDE RECORDS SUMMARY | 2024-06-20 16:41 | XMS_ITS | Clinical Summary ---
Author Organization [facility] Address [address] [place] [address] Phone Care Team Providers Care Director Of Scout Work Name Role Phone Physician, Pcp Unknown Primary Care Provider Veronica vailable Allergies No known active allergies Medications doxycycline (VIBRAMYCIN) 100 mg capsule Take 1 capsule (100 mg total) by mouth 2 (two) times a day for 7 days. Take with at least 8 ounces (large glass) of water, do not lie down for 30 minutes after. Administer 2 hours before or after multivitamins, antacids, or other products containing polyvalent cations (i.e., calcium, iron, magnesium, selenium, zinc). 14 each 06/23/19 25 Active Encounters Date Type Department Care Team Description 06/15/2024 8:13 PM EST - 06/16/2024 1:23 AM EST Emergency [facility] Emergency [address] [place] [address] Cellulitis of right lower extremity (Primary Dx); Pain and swelling of right lower extremity Discharge Disposition: Home or Self Care from Last 3 Months Social History Tobacco Use Types Packs/Day Years Used Date Smoking Tobacco: Never Assessed Comments Unknown Sex and Gender Information Value Date Recorded Sex Assigned at Female 06/15/2024 8:24 PM EST Legal Sex Female 9:39 AM EST Gender Identity Female 06/15/2024 8:24 PM EST Sexual Orientation Straight 06/15/2024 8: 24 PM EST Last Filed Vital Signs Vital Sign Reading [...] Mass Index 28.19 06/15/2024 8:19 PM EST Plan of Treatment Health Maintenance Due Date Last Done Comments Breast Cancer Screening 1955 Colorectal Cancer Screening: Colonoscopy 05/30/2023 Depression Screening 05/30/2023 Falls Risk Assessment 05/30/2023 Hepatitis C Screening 05/30/2023 Medicare Annual Wellness Visit 05/30/2023 Osteoporosis Screening (Bone Density Screening) 05/30/2023 Social Influencers of Health Screening 05/30/2023 Zoster Vaccines (2 of 2) 04/02/2024 02/06/2024 RSV Immunization Patients 60+ Years Old (1 - 1-dose 75+ series) 2031 DTaP,Tdap,and Td Vaccines (3 - Td or Tdap) 01/26/2033 01/26/2023, 03/04/2004 COVID-19 Vaccine Completed 02/06/2024, , 11/25/2021, Additional history exists Influenza Vaccine Completed 02/06/2024, , 02/12/2022, Additional history exists Pneumococcal Vaccine: 50+ Years Completed 02/06/2024, 01/26/2023, 02/19/2013 HIB Vaccines Aged Out No longer eligi ble based on patient's age to complete this topic HPV Vaccines Aged Out No longer eligi ble based on patient's age to complete this topic Hepatitis A Vaccines Aged Out No long er eligible based on patient's age to complete this topic Hepatitis B Vaccines Aged Out No long er eligible based on patient's age to complete this topic IPV Vaccines Aged Out No longer eligi ble based on patient's age to complete this topic MMR Vaccines Aged Out No longer eligi ble based on patient's age to complete this topic Meningococcal ACWY Vaccine Aged Out N o longer eligible based on patient's age to complete this topic Meningococcal B Vacine Aged Out No lo nger eligible based on patient's age to complete this topic RSV Immunization Patients Under 20 months Aged Out No longer eligible based on patient's age to complete this topic Varicella Vaccines Aged Out No longer eligible based on patient's age to complete this topic Procedures Procedure Name Priority Date/Time Associated Diagnosis Comments PROTHROMBIN TIME WITH INR STAT 06/15/2024 9:20 PM EST CBC WITH AUTO DIFFERENTIAL STAT 06/15/2024 9:20 PM EST BASIC METABOLIC PANEL STAT 06/15/2024 9:20 PM EST CBC AND DIFFERENTIAL STAT 06/15/2024 9:20 PM EST CULTURE WOUND WITH GRAM STAIN STAT 06/15/2024 9:15 PM EST VAS US DUPLEX LOWER EXT VENOUS RIGHT STAT 06/15/2024 9:12 PM EST Pain and swelling of right lower extremity from Last 3 Months Results * (ABNORMAL) CBC auto differential (06/15/2024 9:20 PM EST) WBC 3.5(L) 4.8 - 10.8 K/mcL LAB HEMETOLOGY METHOD 06/15/2024 9:31 PM [facility] RBC 3.90 3.80 - 4.80 M/mcL LAB HEMETOLOGY METHOD 06/15/2024 9:31 PM [facility] Hemoglobin 11.6 11.5 - 16.0 g/dL LAB HEMETOLOGY METHOD 06/15/2024 9:31 PM [facility] Hematocrit 35.8 35.0 - 47.0 % LAB HEMETOLOGY METHOD 06/15/2024 9:31 PM [facility] MCV 93.0 79.0 - 98.0 FL LAB HEMETOLOGY METHOD 06/15/2024 9:31 PM [facility] MCH 30.1 27.0 - 32.0 pcg LAB HEMETOLOGY METHOD 06/15/2024 9:31 PM [facility] MCHC 32.4 32.0 - 37.0 g/dL LAB HEMETOLOGY METHOD 06/15/2024 9:31 PM [facility] RDW 12.8 11.0 - 15.0 % LAB HEMETOLOGY METHOD 06/15/2024 9:31 PM [facility] Platelets 254 130 - 400 K/mcL LAB HEMETOLOGY METHOD 06/15/2024 9:31 PM [facility] MPV 9.9 7.0 - 11.0 FL LAB HEMETOLOGY METHOD 06/15/2024 9:31 PM [facility] NRBC 0.0 <1.0 % LAB HEMETOLOGY METHOD 06/15/2024 9:31 PM [facility] NRBC Absolute 0.00 <0.10 K/mcL LAB HEMETOLOGY METHOD 06/15/2024 9:31 PM [facility] Neutrophils Relative 49.3 % LAB HEMETOLOGY METHOD 06/15/2024 9:31 PM [facility] Lymphocytes Relative 37.0 % LAB HEMETOLOGY METHOD 06/15/2024 9:31 PM [facility] Monocytes Relative 8.9 % LAB HEMETOLOGY METHOD 06/15/2024 9:31 PM [facility] Eosinophils Relative 3.4 % LAB HEMETOLOGY METHOD 06/15/2024 9:31 PM [facility] Basophils Relative 1.1 % LAB HEMETOLOGY METHOD 06/15/2024 9:31 PM [facility] Immature Granulocytes Relative 0.3 % LAB HEMETOLOGY METHOD 06/15/2024 9:31 PM [facility] Neutrophils Absolute 1.72 1.50 - 7.00 K/mcL LAB HEMETOLOGY METHOD 06/15/2024 9:31 PM EST [facility] Lymphocytes Absolute 1.29 1.00 - 5.00 K/[facility] LAB HEMETOLOGY METHOD 06/15/2024 9:31 PM EST [facility] Monocytes Absolute 0.31 0.20 - 1.00 K/[facility] LAB HEMETOLOGY METHOD 06/15/2024 9:31 PM EST [facility] Eosinophils Absolute 0.12 0.00 - 0.50 K/[facility] LAB HEMETOLOGY METHOD 06/15/2024 9:31 PM EST [facility] Basophils Absolute 0.04 0.00 - 0.20 K/[facility] LAB HEMETOLOGY METHOD 06/15/2024 9:31 PM EST [facility] Immature Granulocytes Absolute 0.01 0.00 - 0.03 K/[facility] LAB HEMETOLOGY METHOD 06/15/2024 9:31 PM EST [facility] Blood Venous blood specimen / Unknown Venipuncture / Unknown 06/15/2024 9:20 PM EST 06/15/2024 9:25 PM EST Pavel Duran MD LAB BLOOD ORDERABLES Roxy l Result [facility] [address] [place] [address], * Protime-INR (06/15/2024 9:20 PM EST) Protime 12.6 10.6 - 13.9 sec LAB COAGULATION METHOD 06/15/2024 9:37 PM EST [facility] INR 1.0 LAB COAGULATION METHOD 06/15/2024 9:37 PM EST [facility] Blood Venous blood specimen / Unknown Venipuncture / Unknown 06/15/2024 9:20 PM EST 06/15/2024 9:25 PM EST Harmony ROJAS LAB BLOOD ORDERABLES Final Resul t [facility] [address] [place] [address], * (ABNORMAL) Basic metabolic panel (06/15/2024 9:20 PM EST) Sodium 143 133 - 145 mmol/L LAB CHEMISTRY METHOD 06/15/2024 9:51 PM [facility] Potassium 3.5 3.5 - 5.5 mmol/L LAB CHEMISTRY METHOD 06/15/2024 9:51 PM [facility] Chloride 111(H) 96 - 110 mmol/L LAB CHEMISTRY METHOD 06/15/2024 9:51 PM [facility] CO2 29 21 - 32 mmol/L LAB CHEMISTRY METHOD 06/15/2024 9:51 PM [facility] Anion Gap 3 3 - 11 LAB CHEMISTRY METHOD 06/15/2024 9:51 PM [facility] Glucose 147(H) 70 - 100 mg/dL LAB CHEMISTRY METHOD 06/15/2024 9:51 PM [facility] BUN 12 5 - 25 mg/dL LAB CHEMISTRY METHOD 06/15/2024 9:51 PM [facility] Creatinine 0.66 0.50 - 1.10 mg/dL LAB CHEMISTRY METHOD 06/15/2024 9:51 PM [facility] eGFR 96 >=60 mL/min/1. 73m2 LAB CHEMISTRY METHOD 06/15/2024 9:51 PM [facility] Comment:Calculation based on the??Chronic Kidney Disease Epidemiology Collaboration (CKD-EPI) equation refit??without adjustment for race. BUN/Creatinine Ratio 18.2 LAB CHEMISTRY METHOD 06/15/2024 9:51 PM [facility] Calcium 8.6 8.5 - 10.5 mg/dL LAB CHEMISTRY METHOD 06/15/2024 9:51 PM [facility] Blood Venous blood specimen / Unknown Venipuncture / Unknown 06/15/2024 9:20 PM EST 06/15/2024 9:25 PM EST us Pavel Duran MD LAB BLOOD ORDERABLES Roxy leila Result [facility] [address] [place] [address], [place] [phone] * (ABNORMAL) Culture wound with gram stain (06/15/2024 9:15 PM EST) Culture, Wound Methicillin-Resista nt Staphylococcus aureus(A) SANTIAGO 06/18/2024 10:07 AM EST [facility] Comment: The organism value for this result has been updated. These results have been appended to the previously preliminary verified report. Edited result: Previously reported as Staphylococcus aureus on 06/16/2024 at 1345 EST. Gram Stain Result No polymorphonuclear leukocytes seen(A) 06/18/2024 10:07 AM EST [facility] Gram Stain Result Rare Epithelial cells(A) 06/18/2024 10:07 AM EST [facility] Gram Stain Result Moderate Gram positive cocci(A) 06/18/2024 10:07 AM EST [facility] Swab Structure of right lower [...] aureus Trimethoprim/Sulfamethoxazo le SANTIAGO <=10 ug/ml: Susceptible Harmony ROJAS LAB MICROBIOLOGY - GENERAL ORDER OSIEL Final Result [facility] [address] [place] [address], [place] [phone] * Vascular US Duplex Lower Extremity Venous [...] Signed Date: 06/16/2024 09:46 ET Workstation ID: [id number] Transcribed By: Self Edit Transcribed Date: 06/16/2024 [...] Signed Date: 06/16/2024 09:46 ET Workstation ID: [id number] Transcribed By: Self Edit Transcribed Date: 06/16/2024 09:46 ET us Harmony ROJAS CV VASCULAR PROCEDURES Final Res ult from Last 3 Months Additional Health Concerns 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
== END 2024-06-20 16:52 | disposition home or self-care (01) ==
PROVIDERS: PCP Internal Medicine; Visit Provider Internal Medicine
DX: S81.801A Unspecified open wound, right lower leg, initial encounter (principal); R00.0 Tachycardia, unspecified; M54.50 Low back pain, unspecified; F33.0 Major depressive disorder, recurrent, mild; F41.1 Generalized anxiety disorder

== ENCOUNTER → 2024-06-20 15:45 | Outpatient (BNVA) | payer OTHER, SELFPAY | PROVIDERS: PCP Internal Medicine; Visit Provider Internal Medicine | DX: S81.801A Unspecified open wound, right lower leg, initial encounter (principal); R00.0 Tachycardia, unspecified; M54.50 Low back pain, unspecified; F33.0 Major depressive disorder, recurrent, mild; F41.1 Generalized anxiety disorder | CPT/HCPCS: 96127; 99212 ==

== ENCOUNTER → 2024-06-27 10:30 | Outpatient (REF) | payer OTHER, SELFPAY ==
--- NOTE | 2024-06-27 10:34 | HM_ITS ---
Conclusion: 1. Patient was monitored for total period of 1 day 2. Baseline was normal sinus rhythm with average heart of 94 beats per minute 3. Frequent sinus tachycardia noted with 28% of time heart rate about 100 beats per minute 4. No significant pauses noted 5. Rare PACs noted but multiple runs of SVT noted, total of 4 with longest episode lasting 35 beats and the fastest episode at 147 beats per minute 6. Patient marked the counter 2 times, 1 correlating with PAC and 1 correlating with short run of SVT MTDD
--- OUTSIDE RECORDS SUMMARY | 2024-06-27 12:17 | XMS_ITS | Continuity of Care Document ---
Author Organization [facility], [facility] hospital Address [address] [place] [phone] Care Team Providers Care Bicycle Rental Clerk Name Role Phone HIM CCA OTHER Assessment Encounter Date Assessment Date Assessment LastModified by Organization Details LastModified Time 06/15/2024 06/15/2024 As noted, we amador greene called to see this patient regarding concerns of cellulitis. Evaluation in the field was performed by my planishing press operator colleague, as noted above, I provided real-time direction and supervision for this visit. The evaluation revealed 69yF with cellulitis and tachycardia, initiated fluids but during monitoring HR jumping rapidly b/w 80s and 150s. Given cardiac instability, referred to ER. Impression: tachycardia, cellulitis, hypokalemia, hemodynamically stable Plan: refer to ER Primary care[facility] 06/15/2024 19:30:37 Plan of Treatment Reminders Order Date Submit Date Provider Last Modified By Organization Details Last Modified Time Details Appointments None recorded. Lab BMP, serum or plasma 2024 025 JAMEEL [facility], [address] [place] [address], [phone], 08:43:15 Referral None recorded. Procedures None recorded. Surgeries None recorded. Imaging None recorded. Medication Orders lactated Ringers intravenous solution 2024 025 [id number], [address], [place], [phone], 5 18:48:12 acetaminoph en 500 mg tablet 2024 025 [facility] #[id number], [address], [place], [phone], 5 18:48:12 Patient TargetsNo targets recorded. Patient [...] SNOMED-CT Code Diagnosis ICD10 Code Diagnosis Note [id number] Holly Orr MD Main - [facility] access hospital [address] [place] [address] 06/15/2024 18:28:00 06/16/2024 15:21:13 Infection of skin and/or subcutaneous tissue 74653594 L08.9 Tachycardia 6021323 R00. 0 Health Concerns Section Related Observation LastModified by Organization Detai ls LastModified Time None Recorded Concern Status LastModified by Organization Details LastModified Time None Recorded Payers Encounter Date Sequence Insurance Name Policy Number Policy Hodges Covered Member ID Hodges Member ID Guarantor Name 06/15/2024 1 [facility] - DOS ON OR AFTER 2022 - DUAL ELIGIBLE - LONGTERM OPTIONS AND ONE CARE (MEDICARE REPLACEMENT/AD VANTAGE - HMO) Delfina Rodriguez [id number] Delfina Rodriguez Notes Date Note Type Note [...] - :08Allergies Reviewed at 06/14/2024 - 15:08Comments: Road Design Engineer verified the patient's name//address and phone number. [...] emergency treatment if needed -Vicki Saleh RN Software Project Manager Organization Information for [employer] Name: [employer]? Address: [address] [place] [id number], Spanner Operator: Gregory Regalado MD CLIA No.: [id number] Software Project Manager POC Test Results from Nate Garcia - [...] ..................... ..................... ..................... ..................... ..................... ..................... ............... Software Project Manager Note From Nate Garcia: SC12 dispatched to the address listed above for the report of a female constitution party with a leg wound. Arrival on [...] increases. Patient denies dizziness or blurred vision. [facility] was consulted, provided orders for IV access, blood draw for BMP, 1 Liter NS, and 12 Lead EKG. 12 Lead E[facility] performed [facility], monitor advised supraventricular tachycardia. 20 gauge IV established in left AC, labs drawn for BMP, and NS fluid infusion initiated. About 700ml administered throughout patient care with minimal changes in HR. BMP ISTAT performed as noted. [facility] consulted again, advised that she recommends that patient go to the ED due to heart rate and no change with fluids. Patient agreed to go to the hospital, 911 called. [facility] arrival on scene, patient report provided and care was transferred. EMS assisted on scene as needed until transport. SC12 clear. ..................... ..................... ..................... ..................... ..................... ..................... ............... [facility] Consulted: Holly Orr ..................... ..................... ..................... ..................... ..................... ..................... ............... Disposition: Fulfilled Holly Orr MD [address] [facility],[address], [place], [address], DARRELL CORBETT 06/15/2024 20:16:32 OBGyn Episode No OBEpisode recorded.
--- OUTSIDE RECORDS SUMMARY | 2024-06-27 12:17 | XMS_ITS | Encounter Summary ---
Author Organization [employer] Address [address] [place] [address] Care Team Providers Care Rose Grading Supervisor Name Role Phone Physician, Pcp Unknown Primary Care Provider Veronica vailable Reason for Visit * Reason Comments Lower Extremity Issue Encounter Details Date Type Department Care Team (Late st Contact Info) Description 06/15/2024 8:13 PM EST - 06/16/2024 1:23 AM EST Emergency Emergency [address] [place] [address] Cellulitis of right lower extremity (Primary Dx); [...] your primary care provider. May use any [id number] pain control that you are able to take. I also recommend using warm compresses in this area to further encourage healing and avoid spread of any infection. * Attachments The following attachments cannot be sent through Care Everywhere. * Cellulitis (Brazilian) documented in this encounter Medications at Time [...] Procedure Abnormality Status --------- ------ CBC auto differential[[id number]] Abnormal Final result Please view results for [...] 06/16/2024 06/23/2024 BOB Mcgee Physician Attestation BOB Mcgee 06/15/242115 BOB Mcgee 06/15/242126 BOB Mcgee 06/15/242128 [...] LAB COAGULATION METHOD 06/15/2024 9:37 PM EST [facility] INR 1.0 LAB COAGULATION METHOD 06/15/2024 9:37 PM EST [facility] Blood Venous blood specimen / Unknown Venipuncture / Unknown 06/15/2024 9:20 PM EST 06/15/2024 9:25 PM EST us Harmony ROJAS LAB BLOOD ORDERABLES Final Resul t [facility] [address] [place] [address], * (ABNORMAL) CBC auto differential (06/15/2024 9:20 PM EST) [facility] WBC 3.5(L) 4.8 - 10.8 K/mcL LAB HEMETOLOGY METHOD 06/15/2024 9:31 PM EST [facility] RBC 3.90 3.80 - 4.80 M/mcL LAB HEMETOLOGY METHOD 06/15/2024 9:31 PM EST [facility] Hemoglobin 11.6 11.5 - 16.0 g/dL LAB HEMETOLOGY METHOD 06/15/2024 9:31 PM EST [facility] Hematocrit 35.8 35.0 - 47.0 % LAB HEMETOLOGY METHOD 06/15/2024 9:31 PM [facility] MCV 93.0 79.0 - 98.0 FL LAB HEMETOLOGY METHOD 06/15/2024 9:31 PM EST [facility] MCH 30.1 27.0 - 32.0 pcg LAB HEMETOLOGY METHOD 06/15/2024 9:31 PM EST [facility] MCHC 32.4 32.0 - 37.0 g/dL LAB HEMETOLOGY METHOD 06/15/2024 9:31 PM EST [facility] RDW 12.8 11.0 - 15.0 % LAB HEMETOLOGY METHOD 06/15/2024 9:31 PM [facility] Platelets 254 130 - 400 K/mcL LAB HEMETOLOGY METHOD 06/15/2024 9:31 PM EST [facility] MPV 9.9 7.0 - 11.0 FL LAB HEMETOLOGY METHOD 06/15/2024 9:31 PM EST [facility] NRBC 0.0 <1.0 % LAB HEMETOLOGY METHOD 06/15/2024 9:31 PM [facility] NRBC Absolute 0.00 <0.10 K/mcL LAB HEMETOLOGY METHOD 06/15/2024 9:31 PM [facility] Neutrophils Relative 49.3 % LAB HEMETOLOGY METHOD 06/15/2024 9:31 PM [facility] Lymphocytes Relative 37.0 % LAB HEMETOLOGY METHOD 06/15/2024 9:31 PM [facility] Monocytes Relative 8.9 % LAB HEMETOLOGY METHOD 06/15/2024 9:31 PM [facility] Eosinophils Relative 3.4 % LAB HEMETOLOGY METHOD 06/15/2024 9:31 PM [facility] Basophils Relative 1.1 % LAB HEMETOLOGY METHOD 06/15/2024 9:31 PM [facility] Immature Granulocytes Relative 0.3 % LAB HEMETOLOGY METHOD 06/15/2024 9:31 PM [facility] Neutrophils Absolute 1.72 1.50 - 7.00 K/mcL LAB HEMETOLOGY METHOD 06/15/2024 9:31 PM [facility] Lymphocytes Absolute 1.29 1.00 - 5.00 K/mcL LAB HEMETOLOGY METHOD 06/15/2024 9:31 PM [facility] Monocytes Absolute 0.31 0.20 - 1.00 K/mcL LAB HEMETOLOGY METHOD 06/15/2024 9:31 PM [facility] Eosinophils Absolute 0.12 0.00 - 0.50 K/mcL LAB HEMETOLOGY METHOD 06/15/2024 9:31 PM [facility] Basophils Absolute 0.04 0.00 - 0.20 K/mcL LAB HEMETOLOGY METHOD 06/15/2024 9:31 PM [facility] Immature Granulocytes Absolute 0.01 0.00 - 0.03 K/mcL LAB HEMETOLOGY METHOD 06/15/2024 9:31 PM [facility] Blood Venous blood specimen / Unknown Venipuncture / Unknown 06/15/2024 9:20 PM EST 06/15/2024 9:25 PM EST us Pavel Duran MD LAB BLOOD ORDERABLES Roxy l Result [facility] [address] [place] [address], [place] [phone] * (ABNORMAL) Basic metabolic panel (06/15/2024 9:20 PM EST) Sodium 143 133 - 145 mmol/L LAB CHEMISTRY METHOD 06/15/2024 9:51 PM [facility] Potassium 3.5 3.5 - 5.5 mmol/L LAB CHEMISTRY METHOD 06/15/2024 9:51 PM [facility] Chloride 111(H) 96 - 110 mmol/L LAB CHEMISTRY METHOD 06/15/2024 9:51 PM [facility] CO2 29 21 - 32 mmol/L LAB CHEMISTRY METHOD 06/15/2024 9:51 PM [facility] Anion Gap 3 3 - 11 LAB CHEMISTRY METHOD 06/15/2024 9:51 PM [facility] Glucose 147(H) 70 - 100 mg/dL LAB CHEMISTRY METHOD 06/15/2024 9:51 PM [facility] BUN 12 5 - 25 mg/dL LAB CHEMISTRY METHOD 06/15/2024 9:51 PM [facility] Creatinine 0.66 0.50 - 1.10 mg/dL LAB CHEMISTRY METHOD 06/15/2024 9:51 PM [facility] eGFR 96 >=60 mL/min/1. 73m2 LAB CHEMISTRY METHOD 06/15/2024 9:51 PM [facility] Comment:Calculation based on the??Chronic Kidney Disease Epidemiology Collaboration (CKD-EPI) equation refit??without adjustment for race. BUN/Creatinine Ratio 18.2 LAB CHEMISTRY METHOD 06/15/2024 9:51 PM EST [facility] Calcium 8.6 8.5 - 10.5 mg/dL LAB CHEMISTRY METHOD 06/15/2024 9:51 PM EST [facility] Blood Venous blood specimen / Unknown Venipuncture / Unknown 06/15/2024 9:20 PM EST 06/15/2024 9:25 PM EST us Pavel Duran MD LAB BLOOD ORDERABLES Roxy l Result [facility] [address] [place] [address], [place] [phone] * (ABNORMAL) Culture wound with gram stain (06/15/2024 9:15 PM EST) Culture, Wound Methicillin-Resista nt Staphylococcus aureus(A) SANTIAGO 06/18/2024 10:07 AM [facility] Comment: The organism value for this result has been updated. These results have been appended to the previously preliminary verified report. Edited result: Previously reported as Staphylococcus aureus on 06/16/2024 at 1345 EST. Gram Stain Result No polymorphonuclear leukocytes seen(A) 06/18/2024 10:07 AM [facility] Gram Stain Result Rare Epithelial cells(A) 06/18/2024 10:07 AM [facility] Gram Stain Result Moderate Gram positive cocci(A) 06/18/2024 10:07 AM [facility] Swab Structure of right lower [...] MICROBIOLOGY - GENERAL ORDER OSIEL Final Result [facility] ([facility] [address] [place] [address], * Vascular US Duplex Lower Extremity Venous [...] Signed Date: 06/16/2024 09:46 ET Workstation ID: [id number] Transcribed By: Self Edit Transcribed Date: 06/16/2024 [...] Signed Date: 06/16/2024 09:46 ET Workstation ID: [id number] Transcribed By: Self Edit Transcribed Date: 06/16/2024 [...] RN) documented in this encounter Care Teams Rose Grading Supervisor Relationship Specialty Start Date End Date Physician, Pcp Unknown PCP - General 06/15/24 documented as of this encounter
--- OUTSIDE RECORDS SUMMARY | 2024-06-27 12:18 | XMS_ITS | Data Portability ---
Author Organization [employer] [facility], Co in - [facility] Address [address] [place] [address] Care Team Providers Care Tone Artist Apprentice Name Role Phone HIM CCA OTHER Assessment Encounter Date Assessment Date Assessment LastModified by Organization Details LastModified Time 06/15/2024 06/15/2024 As noted, we wer e called to see this patient regarding concerns of cellulitis. Evaluation in the field was performed by my back tender pulp drier colleague, as noted above, I provided real-time direction and supervision for this visit. The evaluation revealed 69yF with cellulitis and tachycardia, initiated fluids but during monitoring HR jumping rapidly b/w 80s and 150s. Given cardiac instability, referred to ER. Impression: tachycardia, cellulitis, hypokalemia, hemodynamically stable Plan: refer to ER Primary care, [facility] 06/15/2024 19:30:37 Plan of Treatment Reminders Order Date Submit Date Provider Last Modified By Organization Details Last Modified Time Details Appointments None recorded. Lab BMP, serum or plasma 2024 025 JAMEEL [facility], [address] [place] [address], [phone], 08:43:15 Referral None recorded. Procedures None recorded. Surgeries None recorded. Imaging None recorded. Medication Orders lactated Ringers intravenous solution 2024 025 [facility][id number], [address] [place], [place], [phone], 5 18:48:12 acetaminoph en 500 mg tablet 2024 025 [facility] #[id number], [address] [place], [place], [phone], 5 18:48:12 Patient TargetsNo targets recorded. Patient [...] SNOMED-CT Code Diagnosis ICD10 Code Diagnosis Note [id number] Holly Orr MD Main - [facility] [address] [place] [address] 06/15/2024 18:28:00 06/16/2024 15:21:13 Infection of skin and/or subcutaneous tissue 59451822 L08.9 Tachycardia 6813104 R00. 0 Health Concerns Section Related Observation LastModified by Organization Detai ls LastModified Time None Recorded Concern Status LastModified by Organization Details LastModified Time None Recorded Advance Directives Directive None Recorded Payers Encounter Date Sequence Insurance Name Policy Number Policy Hodges Covered Member ID Hodges Member ID Guarantor Name 06/15/2024 1 [facility] - DOS ON OR AFTER 2022 - DUAL ELIGIBLE - DETENTION OPTIONS AND ONE CARE (MEDICARE REPLACEMENT/AD VANTAGE - HMO) Delfina Rodriguez [id number] Delfina Rodriguez Notes Date Note Type Note Provider Name and Address Organization Details Recorded Time 06/15/2024 text/html CRC Nurse Triage Notes (Seven Saleh - LISSA): Denies: Mc ? Flash, circumferential mc Mc reported with black tissue to the area Open skin area after a fall with uncontrolled bleeding Abscess/infection with streaking noted, presence of fever or without Chief [facility] Reviewed at 06/14/2024 - :08Allergies Reviewed at 06/14/2024 - 15:08Comments: Vessel Slagman verified the patient's name//address and phone number. [...] emergency treatment if needed -Vicki Saleh RN Boat Driver Organization Information for [employer] Legal Name: [employer]? Address: [address] [place] [address], Middle School Math Teacher: Gregory BARCENASNE No.: [id number] Boat Driver POC Test Results from Nate Garcia - [...] ..................... ..................... ..................... ..................... ..................... ..................... ............... Boat Driver Note From Nate Garcia: SC12 dispatched to [...] increases. Patient denies dizziness or blurred vision. [facility] was consulted, provided orders for IV access, blood draw for BMP, 1 Liter NS, and 12 Lead EKG. 12 Lead EKG performed and uploaded to [employer] for remote interpretation, monitor advised supraventricular tachycardia. 20 gauge IV established in left AC, labs drawn for BMP, and NS fluid infusion initiated. About 700ml administered throughout patient care with minimal changes in HR. BMP ISTAT performed as noted. [facility] consulted again, advised that she recommends that patient go to the ED due to heart rate and no change with fluids. Patient agreed to go to the hospital, 911 called. [facility] arrival on scene, patient report provided and care was transferred. EMS assisted on scene as needed until transport. SC12 clear. ..................... ..................... ..................... ..................... ..................... ..................... ............... [facility] Consulted: Holly Orr ..................... ..................... ..................... ..................... ..................... ..................... ............... Disposition: Fulfilled Holly Orr MD [address] [place] [address],[address], [place], [address], DARRELL CORBETT 06/15/2024 20:16:32 OBGyn Episode No OBEpisode recorded.
--- OUTSIDE RECORDS SUMMARY | 2024-06-27 12:18 | XMS_ITS | Clinical Summary ---
Author Organization [facility] Address [address] [place] [address] Phone Care Team Providers Care Bookkeeping Manager Name Role Phone Physician, Pcp Unknown Primary [...] magnesium, selenium, zinc). 14 each 06/23/19 25 Encounters Date Type Department Care Team Description 06/15/2024 8:13 PM EST - 06/16/2024 1:23 AM EST Emergency [facility] Emergency [address] [place] [address] Cellulitis of right lower extremity [...] K/mcL LAB HEMETOLOGY METHOD 06/15/2024 9:31 PM [facility] RBC 3.90 3.80 - 4.80 M/mcL LAB HEMETOLOGY METHOD 06/15/2024 9:31 PM [facility] Hemoglobin 11.6 11.5 - 16.0 g/dL LAB HEMETOLOGY METHOD 06/15/2024 9:31 PM [facility] Hematocrit 35.8 35.0 - 47.0 % LAB HEMETOLOGY METHOD 06/15/2024 9:31 PM [facility] MCV 93.0 79.0 - 98.0 FL LAB HEMETOLOGY METHOD 06/15/2024 9:31 PM [facility] MCH 30.1 27.0 - 32.0 pcg LAB HEMETOLOGY METHOD 06/15/2024 9:31 PM [facility] MCHC 32.4 32.0 - 37.0 g/dL LAB HEMETOLOGY METHOD 06/15/2024 9:31 PM [facility] RDW 12.8 11.0 - 15.0 % LAB HEMETOLOGY METHOD 06/15/2024 9:31 PM [facility] Platelets 254 130 - 400 K/mcL LAB HEMETOLOGY METHOD 06/15/2024 9:31 PM [facility] MPV 9.9 7.0 - 11.0 FL LAB HEMETOLOGY METHOD 06/15/2024 9:31 PM [facility] NRBC 0.0 <1.0 % LAB HEMETOLOGY METHOD 06/15/2024 9:31 PM [facility] NRBC Absolute 0.00 <0.10 K/mcL LAB HEMETOLOGY METHOD 06/15/2024 9:31 PM [facility] Neutrophils Relative 49.3 % LAB HEMETOLOGY METHOD 06/15/2024 9:31 PM [facility] Lymphocytes Relative 37.0 % LAB HEMETOLOGY METHOD 06/15/2024 9:31 PM [facility] Monocytes Relative 8.9 % LAB HEMETOLOGY METHOD 06/15/2024 9:31 PM [facility] Eosinophils Relative 3.4 % LAB HEMETOLOGY METHOD 06/15/2024 9:31 PM [facility] Basophils Relative 1.1 % LAB HEMETOLOGY METHOD 06/15/2024 9:31 PM [facility] Immature Granulocytes Relative 0.3 % LAB HEMETOLOGY METHOD 06/15/2024 9:31 PM [facility] Neutrophils Absolute 1.72 1.50 - 7.00 K/mcL LAB HEMETOLOGY METHOD 06/15/2024 9:31 PM EST [facility] Lymphocytes Absolute 1.29 1.00 - 5.00 K/[facility] LAB HEMETOLOGY METHOD 06/15/2024 9:31 PM EST [facility] Monocytes Absolute 0.31 0.20 - 1.00 K/[facility] LAB HEMETOLOGY METHOD 06/15/2024 9:31 PM EST [facility] Eosinophils Absolute 0.12 0.00 - 0.50 K/[facility] LAB HEMETOLOGY METHOD 06/15/2024 9:31 PM EST [facility] Basophils Absolute 0.04 0.00 - 0.20 K/[facility] LAB HEMETOLOGY METHOD 06/15/2024 9:31 PM EST [facility] Immature Granulocytes Absolute 0.01 0.00 - 0.03 K/[facility] LAB HEMETOLOGY METHOD 06/15/2024 9:31 PM EST [facility] Blood Venous blood specimen / Unknown Venipuncture / Unknown 06/15/2024 9:20 PM EST 06/15/2024 9:25 PM EST Pavel Duran MD LAB BLOOD ORDERABLES Roxy l Result [facility] [address] [place] [address], * Protime-INR (06/15/2024 9:20 PM EST) Protime 12.6 10.6 - 13.9 sec LAB COAGULATION METHOD 06/15/2024 9:37 PM EST [facility] INR 1.0 LAB COAGULATION METHOD 06/15/2024 9:37 PM EST [facility] Blood Venous blood specimen / Unknown Venipuncture / Unknown 06/15/2024 9:20 PM EST 06/15/2024 9:25 PM EST Harmony ROJAS LAB BLOOD ORDERABLES Final Resul t [facility] [address] [place] [address], * (ABNORMAL) Basic metabolic panel (06/15/2024 9:20 PM EST) Sodium 143 133 - 145 mmol/L LAB CHEMISTRY METHOD 06/15/2024 9:51 PM EST [facility] Potassium 3.5 3.5 - 5.5 mmol/L LAB CHEMISTRY METHOD 06/15/2024 9:51 PM [facility] Chloride 111(H) 96 - 110 mmol/L LAB CHEMISTRY METHOD 06/15/2024 9:51 PM [facility] CO2 29 21 - 32 mmol/L LAB CHEMISTRY METHOD 06/15/2024 9:51 PM [facility] Anion Gap 3 3 - 11 LAB CHEMISTRY METHOD 06/15/2024 9:51 PM [facility] Glucose 147(H) 70 - 100 mg/dL LAB CHEMISTRY METHOD 06/15/2024 9:51 PM [facility] BUN 12 5 - 25 mg/dL LAB CHEMISTRY METHOD 06/15/2024 9:51 PM [facility] Creatinine 0.66 0.50 - 1.10 mg/dL LAB CHEMISTRY METHOD 06/15/2024 9:51 PM [facility] eGFR 96 >=60 mL/min/1. 73m2 LAB CHEMISTRY METHOD 06/15/2024 9:51 PM [facility] Comment:Calculation based on the??Chronic Kidney Disease Epidemiology Collaboration (CKD-EPI) equation refit??without adjustment for race. BUN/Creatinine Ratio 18.2 LAB CHEMISTRY METHOD 06/15/2024 9:51 PM [facility] Calcium 8.6 8.5 - 10.5 mg/dL LAB CHEMISTRY METHOD 06/15/2024 9:51 PM EST [facility] Blood Venous blood specimen / Unknown Venipuncture / Unknown 06/15/2024 9:20 PM EST 06/15/2024 9:25 PM EST us Pavel Duran MD LAB BLOOD ORDERABLES Roxy dee Result [facility] [address] [place] [address], [place] [phone] * (ABNORMAL) Culture wound with gram stain (06/15/2024 9:15 PM EST) Culture, Wound Methicillin-Resista nt Staphylococcus aureus(A) SANTIAGO 06/18/2024 10:07 AM [facility] Comment: The organism value for this result has been updated. These results have been appended to the previously preliminary verified report. Edited result: Previously reported as Staphylococcus aureus on 06/16/2024 at 1345 EST. Gram Stain Result No polymorphonuclear leukocytes seen(A) 06/18/2024 10:07 AM [facility] Gram Stain Result Rare Epithelial cells(A) 06/18/2024 10:07 AM [facility] Gram Stain Result Moderate Gram positive cocci(A) 06/18/2024 10:07 AM [facility] Swab Structure of right lower [...] MICROBIOLOGY - GENERAL ORDER OSIEL Final Result 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
--- OUTSIDE RECORDS SUMMARY | 2024-06-27 12:18 | XMS_ITS | Clinical Summary ---
Author Organization [facility] Address [address] [place] [address] Care Team Providers Care Ict Teacher Name Role Phone Unavailable Primary Care Provider [...] Plan of Treatment Not on file Insurance [facility] Member Subscriber Plan / Payer (Ef fective 2017-Present) Name:Delfina Rodriguez Relation to Subscriber:Self Name:Delfina Rodriguez Payer ID:[id number] Group ID:Not on file Type:Mega Address: [facility] [address] [id number] [facility] [employer] - DENTAL Member Subscriber Plan / Payer (Ef fective for All Dates) Name:Delfina Rodriguez Member ID:Not on file Relation to Subscriber:Self Name:Delfina Rodriguez Subscriber ID:Not on file Payer ID:[id number] Group ID:Not on file Type:Medicare Address: [place] [id number]
== END ==
LOC: HO.CARD 10:30
PROVIDERS: PCP Internal Medicine; Visit Provider Internal Medicine
DX: R00.0 Tachycardia, unspecified (principal); I49.1 Atrial premature depolarization
CPT/HCPCS: 93225

== ENCOUNTER → 2024-06-27 10:34 | Outpatient (BNV) | payer OTHER, SELFPAY | PROVIDERS: PCP Internal Medicine; Visit Provider Internal Medicine Cardiovascular Disease | DX: R00.0 Tachycardia, unspecified (principal) | CPT/HCPCS: 93227 ==

== ENCOUNTER 2024-07-09 13:33 | Outpatient (AMB) | payer OTHER, SELFPAY ==
[2024-07-09 14:22] VITALS: BP 122/62; PULSE 78; BMI 27.6
--- NOTE | 2024-07-09 14:22 | A.OFFVIS_ITS ---
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 Allergies bupropion [From Wellbutrin SR] Allergy (Intermediate, Verified 06/20/24 16:29) tachycardia Medication List - Last Reconciled 07/09/24 by Stevie Khan MD albuterol sulfate 90 mcg/actuation (Ventolin HFA) 2 puffs inhalation Q6H PRN 30 days blood pressure monitor As directed calcium carbonate 500 mg PO BID 90 days cholecalciferol (vitamin D3) 25 mcg PO DAILY 30 days clonazepam 0.5 mg PO BID fluticasone propionate 50 mcg/actuation 1 spray intranasal DAILY 30 days omeprazole 40 mg PO DAILY 90 days tramadol 50 mg PO Q4-6H Wellbutrin SR (bupropion HCl) 200 mg PO DAILY 90 days NS zolpidem 10 mg PO BEDTIME 30 days HPI Comments Details: Delfina is here for consultation regarding tachycardia. She has recently been noticing episodes of rapid heartbeats. She states that this can happen any time. She feels sensations of chest fluttering but no other complaints like angina or shortness of breath. No prior cardiac history. She does have some anxiety at baseline. She underwent a recent Holter monitor and that shows frequent sinus tachycardia and brief runs of SVT. Hence she has been referred to us. [facility] Medical History Leukopenia Insomnia ED (generalized anxiety disorder) Mild recurrent major depression Physical exam Pre-op evaluation Polyarthralgia Surgical History History of colonoscopy History of cataract surgery History of repair of rotator cuff History of arthroscopy of left knee History of total abdominal hysterectomy and bilateral salpingo-oophorectomy Family History Father CVD (cardiovascular disease) Hypertension Mother Diabetes Uterine cancer Cancer Paternal Grandmother Hypertension Paternal Grandfather No problems noted. Family/Other Substance use disorder FH: mental illness Son No problems noted. Daughter No problems noted. Daughter No problems noted. Brother Cancer Maternal Grandmother Cancer Maternal Grandfather Cancer Paternal Uncle Cancer Social History Household Members: Children [facility] Are you a primary clinical care manager to a significant other at home: No Do you presently have visiting nurse or other home services: No Alcohol intake: current Alcohol intake frequency: holidays/special occasions only Alcohol type: beer Patient Tobacco Use Status: Former Tobacco user Tobacco use type: Cigarette e-Cigarette/Vaping Use: Never Used Second Hand Smoke Exposure: No service: No Current occupational status: employed 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 Cognitive needs: No Hearing needs: No Vision needs: Yes (Glasses.) Review of Systems Const Denies weakness ENT Denies dizziness Card Denies chest pain, Denies chest pain with activity, Denies syncope, Denies rapid heart rate, Denies pedal edema, Denies edema, Denies leg edema, Denies lightheadedness, Reports palpitations, Reports dyspnea, Denies dyspnea on exertion and Denies orthopnea Resp Denies cough, Reports dyspnea and Denies dyspnea on exertion GI Denies hematochezia and Denies change in stool character Musc Denies abnormal gait, Denies muscle cramps, Denies muscle weakness, Denies numbness, Denies radiating pain into limb and Denies tingling Neuro Denies abnormal gait, Denies dizziness, Denies syncope, Denies numbness, Denies tingling and Denies weakness Endo Reports palpitations Physical Exam Vital Signs: Last Vital Signs Pulse 78 07/09/24 14:22 BP 122/62 07/09/24 14:22 BMI result Body Mass Index 27.6 Const General: comfortable and no acute distress Orientation/consciousness: patient oriented x3 HEENT Other: Unremarkable Head: Yes normal to inspection Neck Neck: Yes normal visual inspection Chest Chest palpation & inspection: normal inspection of the chest Resp Auscultation: clear to auscultation bilaterally Cardio Palpation: normal PMI Heart sounds: S1 normal heart sound present, S2 normal heart sound present, no gallops, no murmurs and no rubs GI Palpation (GI): Soft to palpation Back/Spine/Pelvis Other: unremarkable Skin General skin exam: no rashes or lesions noted Neuro General: patient oriented x3 Extrem General: Yes normal to inspection Psych Mental Status: mental status grossly normal Office Procedures EKG Details: EKG with underlying sinus rhythm at 78/Min; no significant ST-T changes; [place]. [address]Dlzduuwqmhfaaynll, Complete Assessment & Plan Assessment & Plan (1) SVT (supraventricular tachycardia): Code(s): I47.10 - Supraventricular tachycardia, unspecified Category: Medical Plan Baseline EKG unremarkable. In the Holter monitor, underlying rhythm is sinus with an average rate of 94/Min. Frequent sinus tachycardia noted around 28% the time. Runs of SVT noted with longest episode of 35 beats and fastest 147/Min. Findings discussed with patient. She can try small dose of beta-blockers to see if that helps with the palpitations. We will also get an echocardiogram for cardiac function assessment. Follow-up after the above. Orders: Orders CA echo transthoracic complete Today Stevie Khan MD I25.10 - Atherosclerotic heart disease of [place] coronary artery without angina pectoris, I47.10 - Supraventricular tachycardia, unspecified Medications: New metoprolol tartrate 25 mg PO BID 180 tabs 3RF 90 days Stevie Khan MD I47.10 - Supraventricular tachycardia, unspecified Changed From clonazepam 0.5 mg PO BID 30 days PRN 60 tabs 0RF anxiety To clonazepam 0.5 mg PO BID Jodie Angeles MD From tramadol 50 mg PO Q4-6H 30 days PRN 180 tabs 0RF pain To tramadol 50 mg PO Q4-6H Jodie Angeles MD Coding Level of Care Code New Pt Level 3 (34936) Diagnoses SVT (supraventricular tachycardia) I47.10 CPT Codes EKG - CPT: 35634-Yudpkyetvzowtolko, Complete ([id number])
--- OUTSIDE RECORDS SUMMARY | 2024-07-09 16:27 | XMS_ITS | Continuity of Care Document ---
Author Organization [employer] [facility], [facility] Address [address] [place] [address] Care Team Providers Care Disaster Or Damage Control Specialist Name Role Phone HIM CCA OTHER Assessment Encounter Date Assessment Date Assessment LastModified by Organization Details LastModified Time 06/15/2024 06/15/2024 As noted, we amador greene called to see this patient regarding concerns of cellulitis. Evaluation in the field was performed by my fern picker colleague, as noted above, I provided real-time direction and supervision for this visit. The evaluation revealed 69yF with cellulitis and tachycardia, initiated fluids but during monitoring HR jumping rapidly b/w 80s and 150s. Given cardiac instability, referred to ER. Impression: tachycardia, cellulitis, hypokalemia, hemodynamically stable Plan: refer to ER Primary care, [facility] 06/15/2024 19:30:37 Plan of Treatment Reminders Order Date Submit Date Provider Last Modified By Organization Details Last Modified Time Details Appointments None recorded. Lab BMP, serum or plasma 2024 025 JAMEEL [facility], [address] [place] [address], [id number], 08:43:15 Referral None recorded. Procedures None recorded. Surgeries None recorded. Imaging None recorded. Medication Orders lactated Ringers intravenous solution 2024 025 [facility][id number], [address] [place], [place], [phone], 5 18:48:12 acetaminoph en 500 mg tablet 2024 025 [facility] #31779, [address], [place], [phone], 5 18:48:12 Patient TargetsNo targets recorded. Patient [...] SNOMED-CT Code Diagnosis ICD10 Code Diagnosis Note [id number] Holly Orr MD Main - [facility] [address] [place] [address] 06/15/2024 18:28:00 06/16/2024 15:21:13 Infection of skin and/or subcutaneous tissue [id number] L08.9 Tachycardia 2142708 R00. 0 Health Concerns Section Related Observation LastModified by Organization Detai ls LastModified Time None Recorded Concern Status LastModified by Organization Details LastModified Time None Recorded Payers Encounter Date Sequence Insurance Name Policy Number Policy Hodges Covered Member ID Hodges Member ID Guarantor Name 06/15/[address] [facility] - DOS ON OR AFTER 2022 - DUAL ELIGIBLE - INTERMEDIATE OPTIONS AND ONE CARE (MEDICARE REPLACEMENT/AD VANTAGE - HMO) Delfina Rodriguez [id number] Delfina Rodriguez Notes Date Note Type Note [...] - :08Allergies Reviewed at 06/14/2024 - 15:08Comments: Clinical Laboratory Director verified the patient's name//address and phone number. [...] emergency treatment if needed -Vicki Saleh RN Glass Finisher Organization Information for [employer] Legal Name: [employer]? Address: [address] [place] [address], Home Theater Specialist: Gregory Regalado MD CLIA No.: [id number] Glass Finisher POC Test Results from Nate Garcia - [...] ..................... ..................... ..................... ..................... ..................... ..................... ............... Glass Finisher Note From Nate Garcia: SC12 dispatched to [...] increases. Patient denies dizziness or blurred vision. [facility] was consulted, provided orders for IV access, blood draw for BMP, 1 Liter NS, and 12 Lead EKG. 12 Lead EKG performed [facility] for remote interpretation, monitor advised supraventricular tachycardia. 20 gauge IV established in left AC, labs drawn for BMP, and NS fluid infusion initiated. About 700ml administered throughout patient care with minimal changes in HR. BMP ISTAT performed as noted. [facility] consulted again, advised that she recommends that patient go to the ED due to heart rate and no change with fluids. Patient agreed to go to the hospital, 911 called. [facility] arrival on scene, patient report provided and care was transferred. EMS assisted on scene as needed until transport. SC12 clear. ..................... ..................... ..................... ..................... ..................... ..................... ............... [facility] Consulted: Holly Orr ..................... ..................... ..................... ..................... ..................... ..................... ............... Disposition: Fulfilled Holly Orr MD [address] [facility],[address], [place], [address], DARRELL CORBETT 06/15/2024 20:16:32 OBGyn Episode No OBEpisode recorded.
--- OUTSIDE RECORDS SUMMARY | 2024-07-09 16:28 | XMS_ITS | Data Portability ---
Author Organization [employer] [facility], [place] in - Formerly [facility], [facility] Address [address] [place] [phone] Care Team Providers Care Transportation Operations Manager Name Role Phone HIM CCA OTHER Assessment Encounter Date Assessment Date Assessment LastModified by Organization Details LastModified Time 06/15/2024 06/15/2024 As noted, we wer e called to see this patient regarding concerns of cellulitis. Evaluation in the field was performed by my patch setter colleague, as noted above, I provided real-time direction and supervision for this visit. The evaluation revealed 69yF with cellulitis and tachycardia, initiated fluids but during monitoring HR jumping rapidly b/w 80s and 150s. Given cardiac instability, referred to ER. Impression: tachycardia, cellulitis, hypokalemia, hemodynamically stable Plan: refer to ER Primary care, [facility] 06/15/2024 19:30:37 Plan of Treatment Reminders Order Date Submit Date Provider Last Modified By Organization Details Last Modified Time Details Appointments None recorded. Lab BMP, serum or plasma 2024 025 [facility], [address] [place] [address], [id number], 08:43:15 Referral None recorded. Procedures None recorded. Surgeries None recorded. Imaging None recorded. Medication Orders lactated Ringers intravenous solution 2024 025 [facility] #[id number], [address] [place], [place], [phone], 5 18:48:12 acetaminoph en 500 mg tablet 2024 025 [facility] #[id number], [address], [place], [phone], 5 18:48:12 Patient TargetsNo targets recorded. Patient [...] SNOMED-CT Code Diagnosis ICD10 Code Diagnosis Note [id number] Holly Orr MD Main - instED [address] [place] [address] 06/15/2024 18:28:00 06/16/2024 15:21:13 Infection of skin and/or subcutaneous tissue 22825598 L08.9 Tachycardia 2718655 R00. 0 Health Concerns Section Related Observation LastModified by Organization Detai ls LastModified Time None Recorded Concern Status LastModified by Organization Details LastModified Time None Recorded Advance Directives Directive None Recorded Payers Encounter Date Sequence Insurance Name Policy Number Policy Hodges Covered Member ID Hodges Member ID Guarantor Name 06/15/2024 1 [facility] - DOS ON OR AFTER 2022 - DUAL ELIGIBLE - LONG TERM OPTIONS AND ONE CARE (MEDICARE REPLACEMENT/AD VANTAGE - HMO) Delfina Rodriguez [id number] Delfina Rodriguez Notes Date Note Type Note Provider Name and Address Organization Details Recorded Time 06/15/2024 text/html CRC Nurse Triage Notes (Seven Saleh - LISSA): Denies: Mc ? Flash, circumferential mc Mc reported with black tissue to the area Open skin area after a fall with uncontrolled bleeding Abscess/infection with streaking noted, presence of fever or without [facility] Reviewed at 06/14/2024 - :08Allergies Reviewed at 06/14/2024 - 15:08Comments: Disease And Insect Control Boss verified the patient's name//address and phone number. [...] emergency treatment if needed -Vicki Saleh RN Diffuser Operator Organization Information for Knowledgestreem Nate Presdo Legal Name: [facility]? Address: [address] [place] [address], Property Disposal Officer: Gregory BARCENASNV No.: [id number] Diffuser Operator POC Test Results from Nate Garcia - [...] ..................... ..................... ..................... ..................... ..................... ..................... ............... Diffuser Operator Note From Nate Garcia: SC12 dispatched to [...] increases. Patient denies dizziness or blurred vision. [facility] was consulted, provided orders for IV access, blood draw for BMP, 1 Liter NS, and 12 Lead EKG. 12 Lead EKG performed and uploaded to Tyfone for remote interpretation, monitor advised supraventricular tachycardia. 20 gauge IV established in left AC, labs drawn for BMP, and NS fluid infusion initiated. About 700ml administered throughout patient care with minimal changes in HR. BMP ISTAT performed as noted. [facility] consulted again, advised that she recommends that patient go to the ED due to heart rate and no change with fluids. Patient agreed to go to the hospital, 911 called. [facility] arrival on scene, patient report provided and care was transferred. EMS assisted on scene as needed until transport. SC12 clear. ..................... ..................... ..................... ..................... ..................... ..................... ............... [facility] Consulted: Holly Orr ..................... ..................... ..................... ..................... ..................... ..................... ............... Disposition: Fulfilled Holly Orr MD [address] [place] [address],[address], [place], [address], DARRELL CORBETT 06/15/2024 20:16:32 OBGyn Episode No OBEpisode recorded.
--- OUTSIDE RECORDS SUMMARY | 2024-07-09 16:28 | XMS_ITS | Clinical Summary ---
Author Organization [facility] Address [address] [place] [address] Phone Care Team Providers Care Registered Representative Name Role Phone Physician, Pcp Unknown Primary [...] EST - 06/16/2024 1:23 AM EST Emergency [facility] Emergency [address] [place] [address] Cellulitis of right lower extremity [...] K/mcL LAB HEMETOLOGY METHOD 06/15/2024 9:31 PM [facility] RBC 3.90 3.80 - 4.80 M/mcL LAB HEMETOLOGY METHOD 06/15/2024 9:31 PM [facility] Hemoglobin 11.6 11.5 - 16.0 g/dL LAB HEMETOLOGY METHOD 06/15/2024 9:31 PM [facility] Hematocrit 35.8 35.0 - 47.0 % LAB HEMETOLOGY METHOD 06/15/2024 9:31 PM [facility] MCV 93.0 79.0 - 98.0 FL LAB HEMETOLOGY METHOD 06/15/2024 9:31 PM [facility] MCH 30.1 27.0 - 32.0 pcg LAB HEMETOLOGY METHOD 06/15/2024 9:31 PM [facility] MCHC 32.4 32.0 - 37.0 g/dL LAB HEMETOLOGY METHOD 06/15/2024 9:31 PM [facility] RDW 12.8 11.0 - 15.0 % LAB HEMETOLOGY METHOD 06/15/2024 9:31 PM [facility] Platelets 254 130 - 400 K/mcL LAB HEMETOLOGY METHOD 06/15/2024 9:31 PM [facility] MPV 9.9 7.0 - 11.0 FL LAB HEMETOLOGY METHOD 06/15/2024 9:31 PM [facility] NRBC 0.0 <1.0 % LAB HEMETOLOGY METHOD 06/15/2024 9:31 PM [facility] NRBC Absolute 0.00 <0.10 K/mcL LAB HEMETOLOGY METHOD 06/15/2024 9:31 PM [facility] Neutrophils Relative 49.3 % LAB HEMETOLOGY METHOD 06/15/2024 9:31 PM [facility] Lymphocytes Relative 37.0 % LAB HEMETOLOGY METHOD 06/15/2024 9:31 PM [facility] Monocytes Relative 8.9 % LAB HEMETOLOGY METHOD 06/15/2024 9:31 PM [facility] Eosinophils Relative 3.4 % LAB HEMETOLOGY METHOD 06/15/2024 9:31 PM [facility] Basophils Relative 1.1 % LAB HEMETOLOGY METHOD 06/15/2024 9:31 PM [facility] Immature Granulocytes Relative 0.3 % LAB HEMETOLOGY METHOD 06/15/2024 9:31 PM [facility] Neutrophils Absolute 1.72 1.50 - 7.00 K/mcL LAB HEMETOLOGY METHOD 06/15/2024 9:31 PM EST [facility] Lymphocytes Absolute 1.29 1.00 - 5.00 K/[facility] LAB HEMETOLOGY METHOD 06/15/2024 9:31 PM EST [facility] Monocytes Absolute 0.31 0.20 - 1.00 K/[facility] LAB HEMETOLOGY METHOD 06/15/2024 9:31 PM EST [facility] Eosinophils Absolute 0.12 0.00 - 0.50 K/[facility] LAB HEMETOLOGY METHOD 06/15/2024 9:31 PM EST [facility] Basophils Absolute 0.04 0.00 - 0.20 K/[facility] LAB HEMETOLOGY METHOD 06/15/2024 9:31 PM EST [facility] Immature Granulocytes Absolute 0.01 0.00 - 0.03 K/[facility] LAB HEMETOLOGY METHOD 06/15/2024 9:31 PM EST [facility] Blood Venous blood specimen / Unknown Venipuncture / Unknown 06/15/2024 9:20 PM EST 06/15/2024 9:25 PM EST Pavel Duran MD LAB BLOOD ORDERABLES Roxy l Result [facility] [address] [place] [address], * Protime-INR (06/15/2024 9:20 PM EST) Protime 12.6 10.6 - 13.9 sec LAB COAGULATION METHOD 06/15/2024 9:37 PM EST [facility] INR 1.0 LAB COAGULATION METHOD 06/15/2024 9:37 PM EST [facility] Blood Venous blood specimen / Unknown Venipuncture / Unknown 06/15/2024 9:20 PM EST 06/15/2024 9:25 PM EST Harmony ROJAS LAB BLOOD ORDERABLES Final Resul t [facility] [address] [place] [address], * (ABNORMAL) Basic metabolic panel (06/15/2024 9:20 PM EST) Sodium 143 133 - 145 mmol/L LAB CHEMISTRY METHOD 06/15/2024 9:51 PM EST [facility] Potassium 3.5 3.5 - 5.5 mmol/L LAB CHEMISTRY METHOD 06/15/2024 9:51 PM [facility] Chloride 111(H) 96 - 110 mmol/L LAB CHEMISTRY METHOD 06/15/2024 9:51 PM [facility] CO2 29 21 - 32 mmol/L LAB CHEMISTRY METHOD 06/15/2024 9:51 PM [facility] Anion Gap 3 3 - 11 LAB CHEMISTRY METHOD 06/15/2024 9:51 PM [facility] Glucose 147(H) 70 - 100 mg/dL LAB CHEMISTRY METHOD 06/15/2024 9:51 PM [facility] BUN 12 5 - 25 mg/dL LAB CHEMISTRY METHOD 06/15/2024 9:51 PM [facility] Creatinine 0.66 0.50 - 1.10 mg/dL LAB CHEMISTRY METHOD 06/15/2024 9:51 PM [facility] eGFR 96 >=60 mL/min/1. 73m2 LAB CHEMISTRY METHOD 06/15/2024 9:51 PM [facility] Comment:Calculation based on the??Chronic Kidney Disease Epidemiology Collaboration (CKD-EPI) equation refit??without adjustment for race. BUN/Creatinine Ratio 18.2 LAB CHEMISTRY METHOD 06/15/2024 9:51 PM [facility] Calcium 8.6 8.5 - 10.5 mg/dL LAB CHEMISTRY METHOD 06/15/2024 9:51 PM EST [facility] Blood Venous blood specimen / Unknown Venipuncture / Unknown 06/15/2024 9:20 PM EST 06/15/2024 9:25 PM EST us Pavel Duran MD LAB BLOOD ORDERABLES Roxy dee Result [facility] [address] [place] [address], [place] [phone] * (ABNORMAL) Culture wound with gram stain (06/15/2024 9:15 PM EST) Culture, Wound Methicillin-Resista nt Staphylococcus aureus(A) SANTIAGO 06/18/2024 10:07 AM [facility] Comment: The organism value for this result has been updated. These results have been appended to the previously preliminary verified report. Edited result: Previously reported as Staphylococcus aureus on 06/16/2024 at 1345 EST. Gram Stain Result No polymorphonuclear leukocytes seen(A) 06/18/2024 10:07 AM [facility] Gram Stain Result Rare Epithelial cells(A) 06/18/2024 10:07 AM [facility] Gram Stain Result Moderate Gram positive cocci(A) 06/18/2024 10:07 AM [facility] Swab Structure of right lower [...] MICROBIOLOGY - GENERAL ORDER OSIEL Final Result 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 [address] [id number] Care Teams Registered Representative Relationship Specialty Start Date End Date Physician, Pcp Unknown PCP - General 06/15/24
--- OUTSIDE RECORDS SUMMARY | 2024-07-09 16:28 | XMS_ITS | Clinical Summary ---
Author Organization [facility] Address [address] [place] [address] Care Team Providers Care Lcsw Name Role Phone Unavailable Primary Care Provider [...] Plan of Treatment Not on file Insurance [facility] Member Subscriber Plan / Payer (Ef fective 2017-Present) Name:Delfina Rodriguez Relation to Subscriber:Self Name:Delfina Rodriguez Payer ID:[id number] Group ID:Not on file Type:Mega Address: [facility] [address] [address] [facility] Member Subscriber Plan / Payer (Ef fective for All Dates) Name:Delfina Rodriguez Member ID:Not on file Relation to Subscriber:Self Name:Delfina Rodriguez Subscriber ID:Not on file Payer ID:[id number] Group ID:Not on file Type:Medicare Address: [place] [id number]
--- OUTSIDE RECORDS SUMMARY | 2024-07-09 16:28 | XMS_ITS | Encounter Summary ---
Author Organization [employer] Address [address] [place] [address] Care Team Providers Care Chip Machine Operator Name Role Phone Physician, Pcp Unknown Primary Care Provider Veronica vailable Reason for Visit * Reason Comments Lower Extremity Issue Encounter Details Date Type Department Care Team (Late st Contact Info) Description 06/15/2024 8:13 PM EST - 06/16/2024 1:23 AM EST Emergency [facility] Emergency [address] [place] [address] Cellulitis of right lower extremity (Primary Dx); [...] your primary care provider. May use any ohya-wkh-noueejc pain control that you are able to take. I also recommend using warm compresses in this area to further encourage healing and avoid spread of any infection. * Attachments The following attachments cannot be sent through Care Everywhere. * Cellulitis (Fijian) documented in this encounter Medications at Time [...] Procedure Abnormality Status --------- ------ CBC auto differential[[id number]] Abnormal Final result Please view results for [...] LAB COAGULATION METHOD 06/15/2024 9:37 PM EST [facility] INR 1.0 LAB COAGULATION METHOD 06/15/2024 9:37 PM EST [facility] Blood Venous blood specimen / Unknown Venipuncture / Unknown 06/15/2024 9:20 PM EST 06/15/2024 9:25 PM EST us Harmony ROJAS LAB BLOOD ORDERABLES Final Resul t [facility] [address] [place] [address], * (ABNORMAL) CBC auto differential (06/15/2024 9:20 PM EST) [facility] WBC 3.5(L) 4.8 - 10.8 K/mcL LAB HEMETOLOGY METHOD 06/15/2024 9:31 PM EST [facility] RBC 3.90 3.80 - 4.80 M/mcL LAB HEMETOLOGY METHOD 06/15/2024 9:31 PM EST [facility] Hemoglobin 11.6 11.5 - 16.0 g/dL LAB HEMETOLOGY METHOD 06/15/2024 9:31 PM EST [facility] Hematocrit 35.8 35.0 - 47.0 % LAB HEMETOLOGY METHOD 06/15/2024 9:31 PM [facility] MCV 93.0 79.0 - 98.0 FL LAB HEMETOLOGY METHOD 06/15/2024 9:31 PM EST [facility] MCH 30.1 27.0 - 32.0 pcg LAB HEMETOLOGY METHOD 06/15/2024 9:31 PM EST [facility] MCHC 32.4 32.0 - 37.0 g/dL LAB HEMETOLOGY METHOD 06/15/2024 9:31 PM EST [facility] RDW 12.8 11.0 - 15.0 % LAB HEMETOLOGY METHOD 06/15/2024 9:31 PM [facility] Platelets 254 130 - 400 K/mcL LAB HEMETOLOGY METHOD 06/15/2024 9:31 PM EST [facility] MPV 9.9 7.0 - 11.0 FL LAB HEMETOLOGY METHOD 06/15/2024 9:31 PM EST [facility] NRBC 0.0 <1.0 % LAB HEMETOLOGY METHOD 06/15/2024 9:31 PM [facility] NRBC Absolute 0.00 <0.10 K/mcL LAB HEMETOLOGY METHOD 06/15/2024 9:31 PM [facility] Neutrophils Relative 49.3 % LAB HEMETOLOGY METHOD 06/15/2024 9:31 PM [facility] Lymphocytes Relative 37.0 % LAB HEMETOLOGY METHOD 06/15/2024 9:31 PM [facility] Monocytes Relative 8.9 % LAB HEMETOLOGY METHOD 06/15/2024 9:31 PM [facility] Eosinophils Relative 3.4 % LAB HEMETOLOGY METHOD 06/15/2024 9:31 PM [facility] Basophils Relative 1.1 % LAB HEMETOLOGY METHOD 06/15/2024 9:31 PM [facility] Immature Granulocytes Relative 0.3 % LAB HEMETOLOGY METHOD 06/15/2024 9:31 PM [facility] Neutrophils Absolute 1.72 1.50 - 7.00 K/mcL LAB HEMETOLOGY METHOD 06/15/2024 9:31 PM [facility] Lymphocytes Absolute 1.29 1.00 - 5.00 K/mcL LAB HEMETOLOGY METHOD 06/15/2024 9:31 PM [facility] Monocytes Absolute 0.31 0.20 - 1.00 K/mcL LAB HEMETOLOGY METHOD 06/15/2024 9:31 PM [facility] Eosinophils Absolute 0.12 0.00 - 0.50 K/mcL LAB HEMETOLOGY METHOD 06/15/2024 9:31 PM [facility] Basophils Absolute 0.04 0.00 - 0.20 K/mcL LAB HEMETOLOGY METHOD 06/15/2024 9:31 PM [facility] Immature Granulocytes Absolute 0.01 0.00 - 0.03 K/mcL LAB HEMETOLOGY METHOD 06/15/2024 9:31 PM [facility] Blood Venous blood specimen / Unknown Venipuncture / Unknown 06/15/2024 9:20 PM EST 06/15/2024 9:25 PM EST us Pavel Duran MD LAB BLOOD ORDERABLES Roxy l Result [facility] [address] [place] [address], [place] [phone] * (ABNORMAL) Basic metabolic panel (06/15/2024 9:20 PM EST) Sodium 143 133 - 145 mmol/L LAB CHEMISTRY METHOD 06/15/2024 9:51 PM [facility] Potassium 3.5 3.5 - 5.5 mmol/L LAB CHEMISTRY METHOD 06/15/2024 9:51 PM [facility] Chloride 111(H) 96 - 110 mmol/L LAB CHEMISTRY METHOD 06/15/2024 9:51 PM [facility] CO2 29 21 - 32 mmol/L LAB CHEMISTRY METHOD 06/15/2024 9:51 PM [facility] Anion Gap 3 3 - 11 LAB CHEMISTRY METHOD 06/15/2024 9:51 PM [facility] Glucose 147(H) 70 - 100 mg/dL LAB CHEMISTRY METHOD 06/15/2024 9:51 PM [facility] BUN 12 5 - 25 mg/dL LAB CHEMISTRY METHOD 06/15/2024 9:51 PM [facility] Creatinine 0.66 0.50 - 1.10 mg/dL LAB CHEMISTRY METHOD 06/15/2024 9:51 PM [facility] eGFR 96 >=60 mL/min/1. 73m2 LAB CHEMISTRY METHOD 06/15/2024 9:51 PM [facility] Comment:Calculation based on the??Chronic Kidney Disease Epidemiology Collaboration (CKD-EPI) equation refit??without adjustment for race. BUN/Creatinine Ratio 18.2 LAB CHEMISTRY METHOD 06/15/2024 9:51 PM EST [facility] Calcium 8.6 8.5 - 10.5 mg/dL LAB CHEMISTRY METHOD 06/15/2024 9:51 PM EST [facility] Blood Venous blood specimen / Unknown Venipuncture / Unknown 06/15/2024 9:20 PM EST 06/15/2024 9:25 PM EST us Pavel Duran MD LAB BLOOD ORDERABLES Roxy l Result [facility] [address] [place] [address], [place] [phone] * (ABNORMAL) Culture wound with gram stain (06/15/2024 9:15 PM EST) Culture, Wound Methicillin-Resista nt Staphylococcus aureus(A) SANTIAGO 06/18/2024 10:07 AM [facility] Comment: The organism value for this result has been updated. These results have been appended to the previously preliminary verified report. Edited result: Previously reported as Staphylococcus aureus on 06/16/2024 at 1345 EST. Gram Stain Result No polymorphonuclear leukocytes seen(A) 06/18/2024 10:07 AM [facility] Gram Stain Result Rare Epithelial cells(A) 06/18/2024 10:07 AM [facility] Gram Stain Result Moderate Gram positive cocci(A) 06/18/2024 10:07 AM [facility] Swab Structure of right [...] <=0.5 ug/ml: Susceptible Methicillin-Resistant Staphylococcus aureus Levofloxacin SNATIAGO 0.25 ug/ml: Susceptible Methicillin-Resistant Staphylococcus aureus Erythromycin [...] MICROBIOLOGY - GENERAL ORDER OSIEL Final Result [facility] [address] [place] [address], * Vascular US Duplex Lower Extremity Venous [...] Signed Date: 06/16/2024 09:46 ET Workstation ID: [id number] Transcribed By: Self Edit Transcribed Date: 06/16/2024 [...] Signed Date: 06/16/2024 09:46 ET Workstation ID: [id number] Transcribed By: Self Edit Transcribed Date: 06/16/2024 [...] RN) documented in this encounter Care Teams Chip Machine Operator Relationship Specialty Start Date End Date Physician, Pcp Unknown PCP - General 06/15/24 documented as of this encounter
== END 2024-07-09 14:58 | disposition home or self-care (01) ==
LOC: HO.HCS 13:34
PROVIDERS: PCP Internal Medicine; Visit Provider Internal Medicine
DX: I47.10 Supraventricular tachycardia, unspecified (principal)
CPT/HCPCS: 93010; 99203

== ENCOUNTER → 2024-07-09 13:33 | Outpatient (BNVA) | payer OTHER, SELFPAY | PROVIDERS: PCP Internal Medicine; Visit Provider Internal Medicine | DX: I47.10 Supraventricular tachycardia, unspecified (principal) | CPT/HCPCS: 93005; 99202 ==

== ENCOUNTER → 2024-08-13 12:08 | Outpatient (REF) | payer OTHER, SELFPAY ==
--- NOTE | 2024-08-13 12:11 | CA_ITS ---
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 Study Quality: Adequate ECG Rhythm: Sinus Conclusions: - 1. Normal LV ejection fraction of 60 65% with underlying regional wall motion abnormality with impaired relaxation filling pattern 2. Moderate mitral calcification with normal cardiac valvular Dopplers 3. Normal RV systolic pressure 4. No pericardial effusion Findings Procedure Information The quality of the study was technically difficult. The study quality is limited by lung artifact. Left Ventricle Normal left ventricular size, thickness, and systolic function. The visually estimated ejection fraction is between 60-65%. Spectral Doppler is indicative of an impaired relaxation filling pattern. E/E prime ratio is between 8 and 15 consistent with indeterminate filling pressures. Wall Motion Rest Echo Findings The inferoseptal wall, the basal inferior, and mid inferior segments are hypokinetic. All other scored wall segments showed normal motion. Right Ventricle Normal right ventricular cavity size and systolic function. Atria Both atria are normal in size. There is no evidence of interatrial shunt. Aortic Valve Normal aortic valve structure and function. There is no aortic valve stenosis. There is no aortic valve regurgitation. Mitral Valve There is moderate posterior mitral leaflet thickening. There is moderate mitral annular calcification. There is trace mitral valve regurgitation. There is no mitral valve stenosis. Pulmonic Valve The pulmonic valve was not well visualized. Tricuspid Valve Likely normal tricuspid valve structure and function. There is trace tricuspid valve regurgitation. The right ventricular systolic pressure is normal. The right ventricular systolic pressure is 23 mmHg. Normal right atrial pressure. There is no evidence of pulmonary hypertension. Great Vessels All visible segments of the aorta are normal in size. The pulmonary artery was not well visualized. There is no dilatation of the ascending aorta measuring 2.90 cm. Venous The inferior vena cava is normal in size and collapses greater than 50% with inspiration. Pericardium/Pleural There is no evidence of pericardial effusion. Prior Study Comparison No prior study available for comparison. Measurements 2D Linear Measurements IVSd: 1.00 0.6-0.9/0.6-1.0 cm LVIDd: 4.60 3.9-5.3/4.2-5.9 cm LVIDd Index: 2.40 2.4-3.2/2.2-3.1 cm/m2 LVIDs: 2.99 2.0-3.6 cm LVPWd: 0.75 0.7-1.1 cm LA Diam: 3.70 2.7-3.8/3.0-4.0 cm LAIDs Index: 1.93 1.5-2.3 cm/m2 LV Mass: 164.93 67-162/88-224 g LV Mass Index: 85.90 43-95/49-115 g/m2 LVOT Diam: 2.40 3.0+(-)1.3 cm 2D Systolic Function EF 4C: 62.30 >55% EF 2C: 60.30 >55% EF BiP: 62.10 >55% Mitral Valve MV Pk E: 0.87 MV PK A: 0.90 MV Decel Time: 211.00 E/A: 1.00 E'Lateral: 9.46 E'Medial: 6.74 E/E' Med: 12.90 E/E' Lat: 9.20 PHT: 62.00 MVA PHT: 3.55 Decel Moca: 4.12 Aortic Valve AoV Pk Amari: 1.27 AoV Pk Grad: 6.00 MARCIE: 4.10 LVOT LVOT Pk Amari: 1.10 LVOT Mn Amari: 0.75 LVOT VTI: 0.25 LVOT Pk Grad: 5.00 LVOT Mn Grad: 3.00 LVOT Diam: 2.40 LVOT Area: 4.52 Diastolic Function MV Pk E: 0.87 MV Pk A: 0.90 E/A: 1.00 E'Medial: 6.74 E/E' Med: 12.90 E' Laterial: 9.46 E/E' Lat: 9.20 Right Ventricle TAPSE (mm): 20.80 TVS' Amari: 12.80 Tricuspid Valve TR Pk Amari: 2.22 TR Pk Grad: 20.00 RA Press: 3.00 RVSP: 23.00 Great Vessels Aorta Sinus of Valsalva: 2.90 2.0-3.5 cm Ao Asc: 2.90 2.1-3.4 cm Pulmonary Veins Pulm Vein S/D 1.90 Pulmonary Valve PV Pk Amari: 0.90 Peak PV Grad: 3.00 Updated in Other Vendor System with Status of Final Wisam Townsend MD electronically signed on 08/14/2024 11:47:53 AM with status of Final
--- OUTSIDE RECORDS SUMMARY | 2024-08-13 14:52 | XMS_ITS | Clinical Summary ---
Author Organization [facility] Address [address] [place] [address] Care Team Providers Care Resin Shaver Name Role Phone Unavailable Primary Care Provider [...] Plan of Treatment Not on file Insurance [facility] Member Subscriber Plan / Payer (Ef fective 2017-Present) Name:Delfina Rodriguez Relation to Subscriber:Self Name:Delfina Rodriguez Payer ID:[id number] Group ID:Not on file Type:Mega Address: [facility] [address] [id number] [facility] Member Subscriber Plan / Payer (Ef fective for All Dates) Name:Delfina Rodriguez Member ID:Not on file Relation to Subscriber:Self Name:Delfina Rodriguez Subscriber ID:Not on file Payer ID:[id number] Group ID:Not on file Type:Medicare Address: [place] [id number]
--- OUTSIDE RECORDS SUMMARY | 2024-08-13 14:52 | XMS_ITS | Encounter Summary ---
Author Organization [facility] Address [address] [place] [address] Care Team Providers Care Personnel Clerks Supervisor Name Role Phone Physician, No Pcp Primary Care Provider Unavaila ble Reason for Visit * Reason Comments Nasal Congestion Facial Pain Encounter Details Date Type Department Care Team (Late st Contact Info) Description 08/11/2024 10:21 AM EDT - 08/11/2024 11:53 AM EDT Emergency [facility] Emergency [address] [place] [address] Upper respiratory tract infection, unspecified type (Primary Dx) Discharge Disposition: Home or Self Care Social [...] Sign Reading Time Taken Comments Blood Pressure 145/85 08/11/2024 10:08 AM EDT Pulse 106 08/11/2024 10:08 AM EDT Temperature 37.1 ??C (98.8 ??F) 08/11/2024 10:08 AM E DT Respiratory Rate 17 08/11/2024 10:08 AM EDT Oxygen Saturation 100% 08/11/2024 10:08 AM EDT Inhaled Oxygen Concentration - - Weight 81.6 kg (180 lb) 08/11/2024 10:08 AM EDT Height 170.2 cm (5' 7 ) 08/11/2024 10:08 AM EDT Body Mass Index 28.19 08/11/2024 10:08 AM EDT documented in this encounter Discharge Instructions * Discharge Instructions* BOB Ritter - 08/11/2024 11:24 AM EDT Your viral swab was negative for COVID, flu and RSV. You likely have another virus causing your symptoms. Continue the [id number] nasal spray, bven-[id number] Tylenol as needed for discomfort.Follow-up with PCP. * Attachments The following attachments cannot be sent through Care Everywhere. * URI (Upper Respiratory Infection): Viral (Bhutanese) documented in this encounter Discharge Disposition Disposition Code Departure Means Destination Comment s Home or Self Care documented in this encounter Progress Notes * Bronwyn Brown RN - 08/11/2024 10:11 AM EDT Pt c/o sinus congestion starting Monday. Was unable to breathe out of nose and had swelling to sinuses. Used saline nasal rinse and now can breathe out of nose but still having congestion and yellow drainage from nares. Subjective fevers. No facial swelling noted. Non toxic appearing documented in this encounter Plan of Treatment Not on file documented as of this encounter Procedures Procedure Name Priority Date/Time Associated Diagnosis Comments [id number], RSV, FLU A AND B QUALITATIVE RT-PCR, INTERNAL LAB STAT 08/11/2024 10:10 AM EDT documented in this encounter Results * [id number], RSV, Influenza A and B qualitative RT-PCR (08/11/2024 10:10 AM EDT) Influenza A PCR Not Detected Not Detected LAB MICROBIOLOGY METHOD 08/11/2024 11:18 AM EDT [facility] Influenza B PCR Not Detected Not Detected LAB MICROBIOLOGY METHOD 08/11/2024 11:18 AM EDT [facility] RSV PCR Not Detected Not Detected LAB MICROBIOLOGY METHOD 08/11/2024 11:18 AM EDT [facility] SARS COV-2 Not Detected Not Detected LAB MICROBIOLOGY METHOD 08/11/2024 11:18 AM EDT [facility] Swab Both anterior nares / Unknown Non-blood Collection / Unknown 08/11/2024 10:10 AM EDT 08/11/2024 10:19 AM EDT Narrative [facility] - 08/11/2024 11:18 AM EDT Disclaimer: ??Testing was performed using the [employer] GeneXpert Xpress SARS-CoV-2 _Flu_RSV PLUS PCR assay. ??The manner in which this information is used to guide patient care is the responsibility of the healthcare provider. ??Results should be correlated with the clinical history, epidemiological data, and other data available to the clinician evaluating the patient. ??Negative results do not preclude infection. ??This test has been authorized by the FDA under an Emergency Use Authorization (EUA). ??This test is only authorized for the duration of time the declaration that circumstances exist justifying the authorization of the emergency use of in vitro diagnostic tests for detection of SARS-CoV-2 virus and/or diagnosis of COVID-19 infection under section 564 (b) (1) of the Act, 21 U.S.C 360bbb-3 (b) (1), unless the authorization is terminated or revoked sooner. ?? Reference Range: Not Detected Fact sheet for Healthcare providers can be found at https://www.fda.gov/media/811795/download. ?? Fact sheet for Healthcare patients can be found at https://www.fda.gov/media/957027/download. us Pavel Duran MD LAB MICROBIOLOGY - GENERA L ORDERABLES Final Result [facility] [address] [place] [address], documented in this encounter Visit Diagnoses Diagnosis Upper respiratory tract infection, unspecified type- Primary documented in this encounter Additional Health Concerns Infection Onset Date Last Indicated Resolved Time MRSA 06/15/2024 06/15/2024 Respiratory Rule-Out 08/11/2024 08/11/2024 025 11:18 AM EDT COVID-19 Rule-Out 08/11/2024 08/11/2024 08/11/2024 11:18 AM EDT documented as of this encounter Care Teams Personnel Clerks Supervisor Relationship Specialty Start Date End Date Physician, No Pcp PCP - General 08/11/24 documented as of this encounter
--- OUTSIDE RECORDS SUMMARY | 2024-08-13 14:52 | XMS_ITS | Data Portability ---
Author Organization [facility] [facility], [facility] Address [address] [place] [phone] Care Team Providers Care Radiology Nurse Name Role Phone HIM [facility] OTHER Assessment Encounter Date Assessment Date Assessment LastModified by Organization Details LastModified Time 06/15/2024 06/15/2024 As noted, we wer e called to see this patient regarding concerns of cellulitis. Evaluation in the field was performed by my lost charge card clerk colleague, as noted above, I provided real-time direction and supervision for this visit. The evaluation revealed 69yF with cellulitis and tachycardia, initiated fluids but during monitoring HR jumping rapidly b/w 80s and 150s. Given cardiac instability, referred to ER. Impression: tachycardia, cellulitis, hypokalemia, hemodynamically stable Plan: refer to ER [facility] 06/15/2024 19:30:37 Plan of Treatment Reminders Order Date Submit Date Provider Last Modified By Organization Details Last Modified Time Details Appointments None recorded. Lab BMP, [facility] or plasma [facility] [address] [place] [address], [id number] 08:43:15 Referral None recorded. Procedures None recorded. Surgeries None recorded. Imaging None recorded. Medication Orders lactated Ringers intravenous solution 2024 025 [id number], [address], [place], [id number], 5 18:48:12 acetaminoph en 500 mg tablet 2024 025 [id number], [address], [place], [phone], 02/15/202 5 18:48:12 Patient TargetsNo targets recorded. Patient [...] SNOMED-CT Code Diagnosis ICD10 Code Diagnosis Note [id number] Holly Orr MD [address] - [facility] [address] [place] [address] 06/15/2024 18:28:00 06/16/2024 15:21:13 Infection of skin and/or subcutaneous tissue 89279025 L08.9 Tachycardia [id number] R00. 0 Health Concerns Section Related Observation LastModified by Organization Detai ls LastModified Time None Recorded Concern Status LastModified by Organization Details LastModified Time None Recorded Advance Directives Directive None Recorded Payers Encounter Date Sequence Insurance Name Policy Number Policy Hodges Covered Member ID Hodges Member ID Guarantor Name 06/15/2024 1 [facility] - DOS ON OR AFTER 2022 - DUAL ELIGIBLE - LONG TERM OPTIONS AND ONE CARE (MEDICARE REPLACEMENT/AD VANTAGE - HMO) Delfina Rodriguez [id number] Delfina Rodriguez Notes Date Note Type Note [...] Complaints: Wound careH Reviewed at 06/14/2024 - 15:08Allergies Reviewed at 06/14/2024 - 15:08Comments: Automat Car Attendant verified the patient's name//address and phone number. [...] emergency treatment if needed -Vicki Saleh RN Trust Clerk Organization Information for [facility] [employer] Note Legal Name: [employer]? Address: [address] [place] [address], Surface Water Manager: Gregory ELIAS No.: [id number] Trust Clerk POC Test Results from Nate Garcia - [...] ..................... ..................... ..................... ..................... ..................... ..................... ............... Trust Clerk Note From Nate Garcia: SC12 dispatched to [...] increases. Patient denies dizziness or blurred vision. [facility] was consulted, provided orders for IV access, blood draw for BMP, 1 Liter NS, and 12 Lead EKG. 12 Lead EKG performed and uploaded to [employer] for remote interpretation, monitor advised supraventricular tachycardia. 20 gauge IV established in left AC, labs drawn for BMP, and NS fluid infusion initiated. About 700ml administered throughout patient care with minimal changes in HR. BMP ISTAT performed as noted. [facility] consulted again, advised that she recommends that patient go to the ED due to heart rate and no change with fluids. Patient agreed to go to the hospital, 911 called. [facility] arrival on scene, patient report provided and care was transferred. EMS assisted on scene as needed until transport. SC12 clear. ..................... ..................... ..................... ..................... ..................... ..................... ............... [facility] Consulted: Holly Orr ..................... ..................... ..................... ..................... ..................... ..................... ............... Disposition: Fulfilled Holly Orr MD [address] [facility],[address], [place], [address], KIM - DARRELL AMATO 06/15/2024 20:16:32 OBGyn Episode No OBEpisode recorded.
--- OUTSIDE RECORDS SUMMARY | 2024-08-13 14:52 | XMS_ITS | Clinical Summary ---
Author Organization [facility] Address [address] [place] [address] Phone Care Team Providers Care Backwinder Name Role Phone Physician, No Pcp Primary Care Provider Unavaila ble Allergies Active Allergy Reactions Criticality Noted Date Comments Bupropion Hcl 08/11/2024 Encounters Date Type Department Care Team Description 08/11/2024 10:21 AM EDT - 08/11/2024 11:[address] [facility] [address] [place] [address] Upper respiratory tract infection, unspecified type (Primary Dx) Discharge Disposition: Home or Self Care 06/15/2024 8:13 PM EST - 06/16/2024 1:[address] [facility] [address] [place] [address] Cellulitis of right lower extremity [...] Mass Index 28.19 08/11/2024 10:08 AM EDT Plan of Treatment Health Maintenance Due Date Last Done Comments Breast Cancer Screening 1955 Colorectal Cancer Screening: Colonoscopy 05/30/2023 Depression Screening 05/30/2023 Falls Risk Assessment 05/30/2023 Hepatitis C Screening 05/30/2023 Medicare Annual Wellness Visit 05/30/2023 Osteoporosis Screening (Bone Density Screening) 05/30/2023 Social Influencers of Health Screening 05/30/2023 Zoster Vaccines (2 of 2) 04/02/2024 02/06/2024 COVID-19 Vaccine ( season) 2024 02/06/2024, 01/26/2023, 11/25/2021, Additional history exists RSV Immunization Adult Patients (1 - 1-dose 75+ series) 2031 DTaP,Tdap,and Td Vaccines (3 - Td or Tdap) 01/26/2033 01/26/2023, 03/04/2004 Influenza Vaccine Completed 02/06/2024, , 02/12/2022, Additional [...] age to complete this topic Meningococcal B Vaccine Aged Out No l onger eligible based on patient's age to complete this topic RSV Immunization Patients Under 20 months Aged Out No longer eligible based on patient's age to complete this topic Varicella Vaccines Aged Out No longer eligible based on patient's age to complete this topic Procedures Procedure Name Priority Date/Time Associated Diagnosis Comments [id number], RSV, FLU A AND B QUALITATIVE RT-PCR, INTERNAL LAB STAT 08/11/2024 10:10 AM EDT PROTHROMBIN TIME WITH INR STAT 06/15/2024 9:20 [...] extremity from Last 3 Months Results * [id number], RSV, Influenza A and B qualitative RT-PCR (08/11/2024 10:10 AM EDT) Influenza A PCR Not Detected Not Detected LAB MICROBIOLOGY METHOD 08/11/2024 11:18 AM EDT [facility] Influenza B PCR Not Detected Not Detected LAB MICROBIOLOGY METHOD 08/11/2024 11:18 AM EDT [facility] RSV PCR Not Detected Not Detected LAB MICROBIOLOGY METHOD 08/11/2024 11:18 AM EDT [facility] SARS COV-2 Not Detected Not Detected LAB MICROBIOLOGY METHOD 08/11/2024 11:18 AM T [facility] Swab Both anterior nares / Unknown Non-blood Collection / Unknown 08/11/2024 10:10 AM EDT 08/11/2024 10:19 AM EDT Narrative [facility] - 08/11/2024 11:18 AM EDT Disclaimer: ??Testing was performed using the [employer] GeneXpert Xpress SARS-CoV-2 _Flu_RSV PLUS PCR assay. [...] for Healthcare providers can be found at https://www.fda.gov/media/743146/download. ?? Fact sheet for Healthcare patients can be found at https://www.fda.gov/media/029121/download. Pavel Duran MD LAB MICROBIOLOGY - GENERA L ORDERABLES Final Result [facility] [address] [place] [address], * (ABNORMAL) CBC auto differential (06/15/2024 9:20 PM EST) WBC 3.5(L) 4.8 - 10.8 K/mcL LAB HEMETOLOGY METHOD 06/15/2024 9:31 PM EST [facility] RBC 3.90 3.80 - 4.80 M/mcL LAB HEMETOLOGY METHOD 06/15/2024 9:31 PM EST [facility] Hemoglobin 11.6 11.5 - 16.0 g/dL LAB HEMETOLOGY METHOD 06/15/2024 9:31 PM [facility] Hematocrit 35.8 35.0 - 47.0 % LAB HEMETOLOGY METHOD 06/15/2024 9:31 PM [facility] MCV 93.0 79.0 - 98.0 FL LAB HEMETOLOGY METHOD 06/15/2024 9:31 PM [facility] MCH 30.1 27.0 - 32.0 pcg LAB HEMETOLOGY METHOD 06/15/2024 9:31 PM [facility] MCHC 32.4 32.0 - 37.0 g/dL LAB HEMETOLOGY METHOD 06/15/2024 9:31 PM [facility] RDW 12.8 11.0 - 15.0 % LAB HEMETOLOGY METHOD 06/15/2024 9:31 PM [facility] Platelets 254 130 - 400 K/mcL LAB HEMETOLOGY METHOD 06/15/2024 9:31 PM [facility] MPV 9.9 7.0 - 11.0 FL LAB HEMETOLOGY METHOD 06/15/2024 9:31 PM [facility] NRBC 0.0 <1.0 % LAB HEMETOLOGY METHOD 06/15/2024 9:31 PM [facility] NRBC Absolute 0.00 <0.10 K/mcL LAB HEMETOLOGY METHOD 06/15/2024 9:31 PM [facility] Neutrophils Relative 49.3 % LAB HEMETOLOGY METHOD 06/15/2024 9:31 PM [facility] Lymphocytes Relative 37.0 % LAB HEMETOLOGY METHOD 06/15/2024 9:31 PM [facility] Monocytes Relative 8.9 % LAB HEMETOLOGY METHOD 06/15/2024 9:31 PM [facility] Eosinophils Relative 3.4 % LAB HEMETOLOGY METHOD 06/15/2024 9:31 PM EST [facility] Basophils Relative 1.1 % LAB HEMETOLOGY METHOD 06/15/2024 9:31 PM EST [facility] Immature Granulocytes Relative 0.3 % LAB HEMETOLOGY METHOD 06/15/2024 9:31 PM [facility] Neutrophils Absolute 1.72 1.50 - 7.00 K/mcL LAB HEMETOLOGY METHOD 06/15/2024 9:31 PM EST [facility] Lymphocytes Absolute 1.29 1.00 - 5.00 K/mcL LAB HEMETOLOGY METHOD 06/15/2024 9:31 PM [facility] Monocytes Absolute 0.31 0.20 - 1.00 K/mcL LAB HEMETOLOGY METHOD 06/15/2024 9:31 PM [facility] Eosinophils Absolute 0.12 0.00 - 0.50 K/mcL LAB HEMETOLOGY METHOD 06/15/2024 9:31 PM EST [facility] Basophils Absolute 0.04 0.00 - 0.20 K/mcL LAB HEMETOLOGY METHOD 06/15/2024 9:31 PM [facility] Immature Granulocytes Absolute 0.01 0.00 - 0.03 K/mcL LAB HEMETOLOGY METHOD 06/15/2024 9:31 PM [facility] Blood Venous blood specimen / Unknown Venipuncture / Unknown 06/15/2024 9:20 PM EST 06/15/2024 9:25 PM EST us Pavel Duran MD LAB BLOOD ORDERABLES Roxy dee Result [facility] [address] [place] [address], * Protime-INR (06/15/2024 9:20 PM EST) Protime 12.6 10.6 - 13.9 sec LAB COAGULATION METHOD 06/15/2024 9:37 PM [facility] INR 1.0 LAB COAGULATION METHOD 06/15/2024 9:37 PM [facility] Blood Venous blood specimen / Unknown Venipuncture / Unknown 06/15/2024 9:20 PM EST 06/15/2024 9:25 PM EST us Harmony ROJAS LAB BLOOD ORDERABLES Final Resul t [facility] [address] [place] [address], * (ABNORMAL) Basic metabolic panel (06/15/2024 9:20 PM EST) Sodium 143 133 - 145 mmol/L LAB CHEMISTRY METHOD 06/15/2024 9:51 PM [facility] Potassium 3.5 3.5 - 5.5 mmol/L LAB CHEMISTRY METHOD 06/15/2024 9:51 PM [facility] Chloride 111(H) 96 - 110 mmol/L LAB CHEMISTRY METHOD 06/15/2024 9:51 PM [facility] CO2 29 21 - 32 mmol/L LAB CHEMISTRY METHOD 06/15/2024 9:51 PM [facility] Anion Gap 3 3 - 11 LAB CHEMISTRY METHOD 06/15/2024 9:51 PM [facility] Glucose 147(H) 70 - 100 mg/dL LAB CHEMISTRY METHOD 06/15/2024 9:51 PM [facility] BUN 12 5 - 25 mg/dL LAB CHEMISTRY METHOD 06/15/2024 9:51 PM [facility] Creatinine 0.66 0.50 - 1.10 mg/dL LAB CHEMISTRY METHOD 06/15/2024 9:51 PM [facility] eGFR 96 >=60 mL/min/1. 73m2 LAB CHEMISTRY METHOD 06/15/2024 9:51 PM EST [facility] Comment:Calculation based on the??Chronic Kidney Disease Epidemiology Collaboration (CKD-EPI) equation refit??without adjustment for race. BUN/Creatinine Ratio 18.2 LAB CHEMISTRY METHOD 06/15/2024 9:51 PM EST [facility] Calcium 8.6 8.5 - 10.5 mg/dL LAB CHEMISTRY METHOD 06/15/2024 9:51 PM EST [facility] Blood Venous blood specimen / Unknown Venipuncture / Unknown 06/15/2024 9:20 PM EST 06/15/2024 9:25 PM EST us Pavel Duran MD LAB BLOOD ORDERABLES Roxy dee Result [facility] [address] [place] [address], [place] [phone] * (ABNORMAL) Culture wound with gram stain (06/15/2024 9:15 PM EST) Culture, Wound Methicillin-Resista nt Staphylococcus aureus(A) SANTIAGO 06/18/2024 10:07 AM [facility] Comment: The organism value for this result has been updated. These results have been appended to the previously preliminary verified report. Edited result: Previously reported as Staphylococcus aureus on 06/16/2024 at 1345 EST. Gram Stain Result No polymorphonuclear leukocytes seen(A) 06/18/2024 10:07 AM [facility] Gram Stain Result Rare Epithelial cells(A) 06/18/2024 10:07 AM [facility] Gram Stain Result Moderate Gram positive cocci(A) 06/18/2024 10:07 AM [facility] Swab Structure of right lower limb [...] MICROBIOLOGY - GENERAL ORDER OSIEL Final Result [facility] [address] [place] [address], * Vascular US Duplex Lower Extremity Venous [...] Signed Date: 06/16/2024 09:46 ET Workstation ID: [id number] Transcribed By: Self Edit Transcribed Date: 06/16/2024 [...] Signed Date: 06/16/2024 09:46 ET Workstation ID: [id number] Transcribed By: Self Edit Transcribed Date: 06/16/2024 09:46 ET Harmony ROJAS CV VASCULAR PROCEDURES Final Res ult from Last 3 Months Additional Health Concerns Infection Onset Date Last Indicated MRSA 06/15/2024 06/15/2024 Insurance [facility] Member Subscriber Plan / Payer (Ef fective 2022-Present) Name:Delfina Rodriguez Relation to Subscriber:Self Name:Delfina Rodriguez Payer ID:[id number] Group ID:[id number] Type:Not on file Address: [address] [place] [id number] [facility] Member Subscriber Plan / Payer (Ef fective 2024-Present) Name:Delfina Rodriguez Member ID:Not on file Relation to Subscriber:Self Name:Delfina Rodriguez Subscriber ID:Not on file Payer ID:[id number] Group ID:Not on file Type:Not on file Address: [address] [place] [id number] Care Teams Backwinder Relationship Specialty Start Date End Date Physician, No Pcp PCP - General 08/11/24
== END ==
LOC: HO.CARD 12:08
PROVIDERS: PCP Internal Medicine; Visit Provider Internal Medicine
DX: I47.10 Supraventricular tachycardia, unspecified (principal); I25.10 Atherosclerotic heart disease of native coronary artery without angina pectoris
CPT/HCPCS: 93306

== ENCOUNTER → 2024-08-13 12:11 | Outpatient (BNV) | payer OTHER, SELFPAY | PROVIDERS: PCP Internal Medicine; Visit Provider Internal Medicine Cardiovascular Disease | DX: I34.81 Nonrheumatic mitral (valve) annulus calcification (principal); I34.0 Nonrheumatic mitral (valve) insufficiency; I36.1 Nonrheumatic tricuspid (valve) insufficiency | CPT/HCPCS: 93306 ==

== ENCOUNTER 2024-08-15 11:12 | Outpatient (AMB) | payer OTHER, SELFPAY ==
[2024-08-15 11:18] VITALS: BP 132/70; BMI 26.8
--- NOTE | 2024-08-15 11:18 | A.OFFPC_ITS ---
Vital Signs 08/15/24 11:18 Height 5 ft 7 in Weight 171 lb BMI 26.8 BP 132/70 Blood Pressure Location Lt brachial Position Sitting Intake Visit Reasons: Angela 08/11 sinus/SOB Synthetic Department Supervisor Required: No Accompanied by: Self / Same As Patient Allergies bupropion [From Wellbutrin SR] Allergy (Intermediate, Verified 08/15/24 11:31) tachycardia Medication List - Last Reconciled 08/15/24 by Jodie Angeles MD albuterol sulfate 90 mcg/actuation (Ventolin HFA) 2 puffs inhalation Q6H PRN 30 days blood pressure monitor As directed calcium carbonate 500 mg PO BID 90 days celecoxib mg PO BID cholecalciferol (vitamin D3) 25 mcg PO DAILY 30 days clonazepam 0.5 mg PO BID fluticasone propionate 50 mcg/actuation 1 spray intranasal DAILY 30 days metoprolol tartrate 25 mg PO BID 90 days omeprazole 40 mg PO DAILY 90 days tramadol 50 mg PO Q4-6H PRN 30 days Wellbutrin SR (bupropion HCl) 200 mg PO DAILY 90 days NS zolpidem 10 mg PO BEDTIME 30 days Tobacco use date assessed: 08/15/24 Fall risk assessment: No Falls in past year Last assessed Fall Risk: 08/15/24 Dental Screening Dental Screen Date: 06/20/24 HPI HPI Comments History of Present Illness Details The patient is a 69-year-old female presenting with chronic sinusitis and nasal congestion lasting for about a week. She previously sought treatment in an emergency room where tests for COVID-19, influenza, and RSV were negative, and she denies having any fever. The patient experiences significant nasal congestion that hampers her breathing, along with sinus tenderness upon palpation. She uses Cetirizine and Doxycycline for managing sinusitis symptoms. The patient's asthma is under control with infrequent use of inhalers. She also has depression with anxiety, which is stable under psychiatric care with medications. [facility] Medical History Leukopenia Insomnia ED (generalized anxiety disorder) Mild recurrent major depression Physical exam Pre-op evaluation Polyarthralgia Surgical History History of colonoscopy History of cataract surgery History of repair of rotator cuff History of arthroscopy of left knee History of total abdominal hysterectomy and bilateral salpingo-oophorectomy Family History Father CVD (cardiovascular disease) Hypertension Mother Diabetes Uterine cancer Cancer Paternal Grandmother Hypertension Paternal Grandfather No problems noted. Family/Other Substance use disorder FH: mental illness Son No problems noted. Daughter No problems noted. Daughter No problems noted. Brother Cancer Maternal Grandmother Cancer Maternal Grandfather Cancer Paternal Uncle Cancer Social History Household Members: Children [facility]: [facility] Are you a primary post acute care nurse to a significant other at home: No Do you presently have visiting nurse or other home services: No Alcohol intake: current Alcohol intake frequency: holidays/special occasions only Alcohol type: beer Patient Tobacco Use Status: Former Tobacco user Tobacco use type: Cigarette e-Cigarette/Vaping Use: Never Used Second Hand Smoke Exposure: No service: No Current occupational status: employed 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 Prince Srivastava, Kori Phillips, Jose Sanders and colleagues, with an educational buddy from [employer]. Review of Systems Const All systems reviewed & are unremarkable except as noted in HPI and below Card Denies chest pain at rest, Denies chest pain with activity, Denies edema, Denies irregular heart rhythm, Denies claudication, Denies dyspnea, Denies dyspnea on exertion, Denies orthopnea, Denies paroxysmal nocturnal dyspnea and Denies slow heart rate Resp Denies cough, Denies dyspnea and Denies dyspnea on exertion Physical exam (Primary Care) Vital Signs: Last Vital Signs BP 132/70 08/15/24 11:18 BMI result Body Mass Index 26.8 Tobacco/Smoking Status: Tobacco use Status Tobacco use date assessed 08/15/24 08/15/24 11:26 Patient Tobacco Use Status Former Tobacco user 08/15/24 11:26 Tobacco use type Cigarette 08/15/24 11:26 e-Cigarette/Vaping Use Never Used 08/15/24 11:26 Thrive Assessment: Date of Thrive Assessment Date Thrive assessed 06/20/24 08/15/24 11:26 Resp Effort & Inspection: normal respiratory effort Auscultation: clear to auscultation bilaterally Cardio Jugular venous distension: no JVD Rate: regular rate Rhythm: regular rhythm Heart sounds: S1 normal heart sound present and S2 normal heart sound present Extrem General: Yes full ROM Coding Level of Care Code Est Pt Level 4 (75356) Complex EM visit Add On G2211 Diagnoses Mild recurrent major depression F33.0 Acute non-recurrent maxillary sinusitis J01.00 ED (generalized anxiety disorder) F41.1 Mild persistent asthma without complication J45.30 Asthma complication type: uncomplicated Asthma persistence: persistent Asthma severity: mild Time Spent (min) 20 Assessment & Plan Assessment & Plan (1) Mild recurrent major depression: Code(s): F33.0 - Major depressive disorder, recurrent, mild Category: Medical (2) Acute non-recurrent maxillary sinusitis: Code(s): J01.00 - Acute maxillary sinusitis, unspecified Category: Medical (3) ED (generalized anxiety disorder): Code(s): F41.1 - Generalized anxiety disorder Category: Medical (4) Asthma: Code(s): J45.909 - Unspecified asthma, uncomplicated Category: Medical Qualifiers: Asthma complication type: uncomplicated Asthma persistence: persistent Asthma severity: mild Qualified Code(s): J45.30 - Mild persistent asthma, uncomplicated Plan The diagnosis of acute sinusitis is confirmed with ongoing symptoms and negative testing for viral infections. I will continue the current regimen of nasal spray and Cetirizine to relieve nasal congestion, along with the prescribed Doxycycline. We will monitor the patient?s respiratory health closely due to the nature of sinusitis. Her asthma is well-controlled with occasional inhaler use. Depression with anxiety remains stable, necessitating no alteration in psyc hiatric care. Patient was informed and verbally consented to the use of an ambient scribe for clinic note documentation during this visit. During the visit, I discussed with the patient the diagnosis of acute sinusitis and the negative results for COVID-19, influenza, and RSV. I explained the need to continue with the current medication regimen, including the nasal spray, Cetirizine, and Doxycycline. I have advised her on monitoring for any exacerbations of sinus or respiratory symptoms that might necessitate further evaluation. I emphasized the importance of staying compliant with her psy chiatric treatment for depression with anxiety. Medications: New doxycycline hyclate 100 mg PO BID 10 caps 0RF 5 days cetirizine (All Day Allergy (cetirizine)) 10 mg PO DAILY PRN 30 tabs 0RF allergy symptoms 30 days Refilled fluticasone propionate 50 mcg/actuation 1 spray intranasal DAILY 30 days 16 grams 5RF fluticasone propionate 50 mcg/actuation 1 spray intranasal DAILY 16 grams 5RF 30 days Patient Instructions: - Continue using nasal spray as prescribed. - Take Cetirizine and Doxycycline as directed. - Monitor for any changes in breathing or sinus pain. - Follow up with your psychiatrist as scheduled. - Seek medical attention if symptoms worsen.
--- OUTSIDE RECORDS SUMMARY | 2024-08-15 13:50 | XMS_ITS | Encounter Summary ---
Author Organization [employer] Address [address] [place] [address] Care Team Providers Care 3 Year Olds Preschool Teacher Name Role Phone Physician, No Pcp Primary Care Provider Unavaila ble Reason for Visit * Reason Comments Nasal Congestion Facial Pain Encounter Details Date Type Department Care Team (Late st Contact Info) Description 08/11/2024 10:21 AM EDT - 08/11/2024 11:53 AM EDT Emergency [facility] Emergency [address] [place] [address] Upper respiratory tract infection, unspecified [...] another virus causing your symptoms. Continue the alib-rmj-arcopqu nasal spray, ridz-iil-zqgswdp Tylenol as needed for discomfort.Follow-up with PCP. * Attachments The following attachments cannot be sent through Care Everywhere. * URI (Upper Respiratory Infection): Viral (Senegalese) documented in this encounter Discharge Disposition Disposition [...] No facial swelling noted. Non toxic appearing * BOB Ritter - 08/11/2024 9:57 AM EDT Emergency Medicine Note Patient Name: Delfina Rodriguez Initial Evaluation: 08/11/2024 : 1955 Patient's PCP: No Pcp Physician Emergency Physician: BOB Ritter History of Present Illness Chief Complaint: Chief Complaint Patient presents with Nasal Congestion Facial Pain HPI: 69-year-old female who denies past medical history presents with nasal congestion and some left eardiscomfort x 5 days. She initially was having a lot of difficulty breathing through the nostril because of the congestion and started using a saline nasal spray and now has had improvement with that. - Denies fevers, chills, vomiting, diarrhea, abdominal pain, cough, shortness of breath, chest pain, rash, sick contacts, recent travel. ROS: I have performed a ROS with the pertinent positives and negatives documented in the history ofpresent illness. Previous History No past medical history on file. No past surgical history on file. No family history on file. is allergic to wellbutrin [bupropion hcl]. No current facility-administered medications on file prior to encounter. No current outpatient medications on file prior to encounter. Physical Exam ED Triage Vitals [08/11/24 1008] Temp Heart Rate Resp BP 37.1 ??C (98.8 ??F) 106 17 (!) 145/85 SpO2 Temp Source Heart Rate Source Patient Position 100 % Oral Monitor Sitting BP Location FiO2 (%) Upper -- General: awake, calm, cooperative, No apparent distress Skin: warm, dry, No diaphoresis Eyes: PERRLA, EOMI ENT: mucosa moist, throat is clear, no lymphadenopathy, TMs clear bilaterally. Bilateral nasal mucosa is inflamed and red. Neck: soft/supple, full range of motion, no nuchal rigidity Respiratory: clear to auscultation Cardiovascular: regular rate and rhythm, no peripheral edema Musculoskeletal: appropriate range of motion in upper and lower extremities Neurological: alert and oriented X3, no facial droop,, strength 5/5 bilateral hands, 5/5 strength upper and lower extremities Psychiatric: stable mood and affect Results Labs Reviewed [id number], RSV, FLU A AND B QUALITATIVE RT-PCR, INTERNAL LAB - Normal Result Value Influenza A PCR Not Detected Influenza B PCR Not Detected RSV PCR Not Detected SARS COV-2 Not Detected Narrative: Disclaimer: Testing was performed using the Ratify GeneXpert Xpress SARS-CoV-2 _Flu_RSV PLUS PCR assay. The manner in which this information is used to guide patient care is the responsibility of the healthcare provider. Results should be correlated with the clinical history, epidemiological data,and other data available to the clinician evaluating the patient. Negative results do not preclude infection. This test has been authorized by the FDA under an Emergency Use Authorization (EUA). Thistest is only authorized for the duration of time the declaration that circumstances exist justifying the authorization of the emergency use of in vitro diagnostic tests for detection of SARS-CoV-2 virus and/or diagnosis of COVID-19 infection under section 564 (b) (1) of the Act, 21 U.S.C 360bbb-3 (b) (1), unless the authorization is terminated or revoked sooner. Reference Range: Not Detected Fact sheet for Healthcare providers can be found at https://www.fda.gov/media/700617/download. Fact sheet for Healthcare patients can be found at https://www.fda.gov/media/279924/download. Abnormal Labs Reviewed - No abnormal labs to display No orders to display I have discussed the incidental/abnormal imaging and/or lab abnormalities with the patient and haveinstructed them the need for further evaluation and workup with their primary care doctor. The laboratory results, imaging results and other diagnostic exam results were reviewed in the EMR. EKG Interpretation Critical Care Time None ? Medical Decision Making MDM as described in ED course below and as follows : 69-year-old female presenting with rhinitis x 5 days. Viral swab was obtained. Will await results. Likely symptomatic and supportive treatment for suspected viral rhinitis. Medications - No data to display ED Course as of 08/13/24 1553 Sun Aug 11, 2024 1050 Patient seen and evaluated. History and physical exam performed. Vitals reviewed. Patient well-appearing, no acute distress, nontoxic-appearing. [AT] ED Course User Index [AT] BOB Ritter Clinical Impressions as of 08/13/24 1553 Upper respiratory tract infection, unspecified type Procedures Procedures Differential Diagnosis Viral rhinitis Allergic rhinitis Sinusitis Bacterial sinusitis Diagnosis 1. Upper respiratory tract infection, unspecified type Disposition Discharge Condition: Stable ED Prescriptions None Physician Attestation BOB Ritter 08/11/24 1052 BOB Ritter 08/11/24 1649 BOB Ritter 08/13/24 1553 Cosigned by Pavel Duran MD at 08/15/2024 10:04 AM EDT documented in this encounter Plan of Treatment Not on file documented as of this encounter Procedures Procedure Name Priority Date/Time Associated Diagnosis Comments [id number], RSV, FLU A AND B QUALITATIVE RT-PCR, INTERNAL LAB STAT 08/11/2024 10:10 AM EDT documented in this encounter Results * [id number], RSV, Influenza A and B qualitative RT-PCR (08/11/2024 10:10 AM EDT) Influenza A PCR Not Detected Not Detected LAB MICROBIOLOGY METHOD 08/11/2024 11:18 AM EDT [facility] Influenza B PCR Not Detected Not Detected LAB MICROBIOLOGY METHOD 08/11/2024 11:18 AM EDT [facility] RSV PCR Not Detected Not Detected LAB MICROBIOLOGY METHOD 08/11/2024 11:18 AM EDT [facility] SARS COV-2 Not Detected Not Detected LAB MICROBIOLOGY METHOD 08/11/2024 11:18 AM EDT [facility] Swab Both anterior nares / Unknown Non-blood Collection / Unknown 08/11/2024 10:10 AM EDT 08/11/2024 10:19 AM EDT Narrative [facility] - 08/11/2024 11:18 AM EDT Disclaimer: ??Testing was performed using the Ratify GeneXpert Xpress SARS-CoV-2 _Flu_RSV PLUS PCR assay. [...] for Healthcare providers can be found at https://www.fda.gov/media/721094/download. ?? Fact sheet for Healthcare patients can be found at https://www.fda.gov/media/914158/download. us Pavel Duran MD LAB MICROBIOLOGY - GENERA L ORDERABLES Final Result [facility] ([facility]) [facility] [address] [place] [address], [place] [phone] documented in this encounter Visit Diagnoses Diagnosis Upper respiratory tract infection, unspecified type- Primary documented in this encounter Additional Health Concerns Infection Onset Date Last Indicated Resolved Time MRSA 06/15/2024 06/15/2024 Respiratory Rule-Out 08/11/2024 08/11/2024 025 11:18 AM EDT COVID-19 Rule-Out 08/11/2024 08/11/2024 08/11/2024 11:18 AM EDT documented as of this encounter Care Teams 3 Year Olds Preschool Teacher Relationship Specialty Start Date End Date Physician, No Pcp PCP - General 08/11/24 documented as of this encounter
--- OUTSIDE RECORDS SUMMARY | 2024-08-15 13:50 | XMS_ITS | Clinical Summary ---
Author Organization [facility] Address [address] [place] [address] Care Team Providers Care Web Content Director Name Role Phone Unavailable Primary Care Provider [...] Plan of Treatment Not on file Insurance [facility] Member Subscriber Plan / Payer (Ef fective 2017-Present) Name:Delfina Rodriguez Relation to Subscriber:Self Name:Delfina Rodriguez Payer ID:[id number] Group ID:Not on file Type:Mega Address: [facility] [address] [address] [facility] [employer] - DENTAL Member Subscriber Plan / Payer (Ef fective for All Dates) Name:Delfina Rodriguez Member ID:Not on file Relation to Subscriber:Self Name:Delfina Rodriguez Subscriber ID:Not on file Payer ID:[id number] Group ID:Not on file Type:Medicare Address: [place] [id number]
--- OUTSIDE RECORDS SUMMARY | 2024-08-15 13:50 | XMS_ITS | Clinical Summary ---
Author Organization [facility] Address [address] [place] [address] Phone Care Team Providers Care Acoustic Sensor Operator Name Role Phone Physician, No Pcp Primary Care Provider Unavaila ble Allergies Active Allergy Reactions Criticality Noted Date Comments Bupropion Hcl 08/11/2024 Encounters Date Type Department Care Team Description 08/11/2024 10:21 AM EDT - 08/11/2024 11:53 AM EDT Emergency [facility] Emergency [address] [place] [address] Upper respiratory tract infection, unspecified type (Primary Dx) Discharge Disposition: Home or Self Care 06/15/2024 8:13 PM EST - 06/16/2024 1:23 AM EST Emergency [facility] Emergency [address] [place] [address] Cellulitis of right lower extremity [...] Procedure Name Priority Date/Time Associated Diagnosis Comments [id number], RSV, FLU A AND B QUALITATIVE RT-PCR, [...] extremity from Last 3 Months Results * [id number], RSV, Influenza A and B qualitative RT-PCR (08/11/2024 10:10 AM EDT) Influenza A PCR Not Detected Not Detected LAB MICROBIOLOGY METHOD 08/11/2024 11:18 AM EDT [facility] Influenza B PCR Not Detected Not Detected LAB MICROBIOLOGY METHOD 08/11/2024 11:18 AM EDT [facility] RSV PCR Not Detected Not Detected LAB MICROBIOLOGY METHOD 08/11/2024 11:18 AM EDT [facility] SARS COV-2 Not Detected Not Detected LAB MICROBIOLOGY METHOD 08/11/2024 11:18 AM T [facility] Swab Both anterior nares / Unknown Non-blood Collection / Unknown 08/11/2024 10:10 AM EDT 08/11/2024 10:19 AM EDT Narrative [facility] - 08/11/2024 11:18 AM EDT Disclaimer: ??Testing was performed using the [employer] GeneXpert Xpress SARS-CoV-2 _Flu_RSV PLUS PCR assay. [...] for Healthcare providers can be found at https://www.fda.gov/media/735641/download. ?? Fact sheet for Healthcare patients can be found at https://www.fda.gov/media/735774/download. Pavel Duran MD LAB MICROBIOLOGY - GENERA L ORDERABLES Final Result [facility] [address] [place] [address], * (ABNORMAL) CBC auto differential (06/15/2024 9:20 PM EST) WBC 3.5(L) 4.8 - 10.8 K/mcL LAB HEMETOLOGY METHOD 06/15/2024 9:31 PM EST [facility] RBC 3.90 3.80 - 4.80 M/mcL LAB HEMETOLOGY METHOD 06/15/2024 9:31 PM EST [facility] Hemoglobin 11.6 11.5 - 16.0 g/dL LAB HEMETOLOGY METHOD 06/15/2024 9:31 PM [facility] Hematocrit 35.8 35.0 - 47.0 % LAB HEMETOLOGY METHOD 06/15/2024 9:31 PM [facility] MCV 93.0 79.0 - 98.0 FL LAB HEMETOLOGY METHOD 06/15/2024 9:31 PM [facility] MCH 30.1 27.0 - 32.0 pcg LAB HEMETOLOGY METHOD 06/15/2024 9:31 PM [facility] MCHC 32.4 32.0 - 37.0 g/dL LAB HEMETOLOGY METHOD 06/15/2024 9:31 PM [facility] RDW 12.8 11.0 - 15.0 % LAB HEMETOLOGY METHOD 06/15/2024 9:31 PM [facility] Platelets 254 130 - 400 K/mcL LAB HEMETOLOGY METHOD 06/15/2024 9:31 PM [facility] MPV 9.9 7.0 - 11.0 FL LAB HEMETOLOGY METHOD 06/15/2024 9:31 PM [facility] NRBC 0.0 <1.0 % LAB HEMETOLOGY METHOD 06/15/2024 9:31 PM [facility] NRBC Absolute 0.00 <0.10 K/mcL LAB HEMETOLOGY METHOD 06/15/2024 9:31 PM [facility] Neutrophils Relative 49.3 % LAB HEMETOLOGY METHOD 06/15/2024 9:31 PM [facility] Lymphocytes Relative 37.0 % LAB HEMETOLOGY METHOD 06/15/2024 9:31 PM [facility] Monocytes Relative 8.9 % LAB HEMETOLOGY METHOD 06/15/2024 9:31 PM [facility] Eosinophils Relative 3.4 % LAB HEMETOLOGY METHOD 06/15/2024 9:31 PM EST [facility] Basophils Relative 1.1 % LAB HEMETOLOGY METHOD 06/15/2024 9:31 PM EST [facility] Immature Granulocytes Relative 0.3 % LAB HEMETOLOGY METHOD 06/15/2024 9:31 PM [facility] Neutrophils Absolute 1.72 1.50 - 7.00 K/mcL LAB HEMETOLOGY METHOD 06/15/2024 9:31 PM EST [facility] Lymphocytes Absolute 1.29 1.00 - 5.00 K/mcL LAB HEMETOLOGY METHOD 06/15/2024 9:31 PM [facility] Monocytes Absolute 0.31 0.20 - 1.00 K/mcL LAB HEMETOLOGY METHOD 06/15/2024 9:31 PM [facility] Eosinophils Absolute 0.12 0.00 - 0.50 K/mcL LAB HEMETOLOGY METHOD 06/15/2024 9:31 PM EST [facility] Basophils Absolute 0.04 0.00 - 0.20 K/mcL LAB HEMETOLOGY METHOD 06/15/2024 9:31 PM [facility] Immature Granulocytes Absolute 0.01 0.00 - 0.03 K/mcL LAB HEMETOLOGY METHOD 06/15/2024 9:31 PM [facility] Blood Venous blood specimen / Unknown Venipuncture / Unknown 06/15/2024 9:20 PM EST 06/15/2024 9:25 PM EST us Pavel Duran MD LAB BLOOD ORDERABLES Roxy dee Result [facility] [address] [place] [address], * Protime-INR (06/15/2024 9:20 PM EST) Protime 12.6 10.6 - 13.9 sec LAB COAGULATION METHOD 06/15/2024 9:37 PM [facility] INR 1.0 LAB COAGULATION METHOD 06/15/2024 9:37 PM [facility] Blood Venous blood specimen / Unknown Venipuncture / Unknown 06/15/2024 9:20 PM EST 06/15/2024 9:25 PM EST us Harmony ROJAS LAB BLOOD ORDERABLES Final Resul t [facility] [address] [place] [address], * (ABNORMAL) Basic metabolic panel (06/15/2024 9:20 PM EST) Sodium 143 133 - 145 mmol/L LAB CHEMISTRY METHOD 06/15/2024 9:51 PM [facility] Potassium 3.5 3.5 - 5.5 mmol/L LAB CHEMISTRY METHOD 06/15/2024 9:51 PM [facility] Chloride 111(H) 96 - 110 mmol/L LAB CHEMISTRY METHOD 06/15/2024 9:51 PM [facility] CO2 29 21 - 32 mmol/L LAB CHEMISTRY METHOD 06/15/2024 9:51 PM [facility] Anion Gap 3 3 - 11 LAB CHEMISTRY METHOD 06/15/2024 9:51 PM [facility] Glucose 147(H) 70 - 100 mg/dL LAB CHEMISTRY METHOD 06/15/2024 9:51 PM [facility] BUN 12 5 - 25 mg/dL LAB CHEMISTRY METHOD 06/15/2024 9:51 PM [facility] Creatinine 0.66 0.50 - 1.10 mg/dL LAB CHEMISTRY METHOD 06/15/2024 9:51 PM [facility] eGFR 96 >=60 mL/min/1. 73m2 LAB CHEMISTRY METHOD 06/15/2024 9:51 PM EST [facility] Comment:Calculation based on the??Chronic Kidney Disease Epidemiology Collaboration (CKD-EPI) equation refit??without adjustment for race. BUN/Creatinine Ratio 18.2 LAB CHEMISTRY METHOD 06/15/2024 9:51 PM EST [facility] Calcium 8.6 8.5 - 10.5 mg/dL LAB CHEMISTRY METHOD 06/15/2024 9:51 PM EST [facility] Blood Venous blood specimen / Unknown Venipuncture / Unknown 06/15/2024 9:20 PM EST 06/15/2024 9:25 PM EST us Pavel Duran MD LAB BLOOD ORDERABLES Roxy dee Result [facility] [address] [place] [address], [place] [phone] * (ABNORMAL) Culture wound with gram stain (06/15/2024 9:15 PM EST) Culture, Wound Methicillin-Resista nt Staphylococcus aureus(A) SANTIAGO 06/18/2024 10:07 AM [facility] Comment: The organism value for this result has been updated. These results have been appended to the previously preliminary verified report. Edited result: Previously reported as Staphylococcus aureus on 06/16/2024 at 1345 EST. Gram Stain Result No polymorphonuclear leukocytes seen(A) 06/18/2024 10:07 AM [facility] Gram Stain Result Rare Epithelial cells(A) 06/18/2024 10:07 AM [facility] Gram Stain Result Moderate Gram positive cocci(A) 06/18/2024 10:07 AM [facility] Swab Structure of right [...] - GENERAL ORDER OSIEL Final Result [facility] ([facility]) [facility] [address] [place] [address], * Vascular US Duplex Lower Extremity Venous [...] Signed Date: 06/16/2024 09:46 ET Workstation ID: [id number] Transcribed By: Self Edit Transcribed Date: 06/16/2024 [...] Signed Date: 06/16/2024 09:46 ET Workstation ID: [id number] Transcribed By: Self Edit Transcribed Date: 06/16/2024 09:46 ET Harmony ROJAS CV VASCULAR PROCEDURES Final Res ult from Last 3 Months Additional Health Concerns Infection Onset Date Last Indicated MRSA 06/15/2024 06/15/2024 Insurance [facility] Member Subscriber Plan / Payer (Ef fective 2022-Present) Name:Delfina Rodriguez Relation to Subscriber:Self Name:Delfina Rodriguez Payer ID:[id number] Group ID:[id number] Type:Not on file Address: [address] [place] [id number] [facility] Member Subscriber Plan / Payer (Ef fective 2024-Present) Name:Delfina Rodriguez Member ID:Not on file Relation to Subscriber:Self Name:Delfina Rodriguez Subscriber ID:Not on file Payer ID:[id number] Group ID:Not on file Type:Not on file Address: [address] [place] [phone] Care Teams Acoustic Sensor Operator Relationship Specialty Start Date End Date Physician, No Pcp PCP - General 08/11/24
--- OUTSIDE RECORDS SUMMARY | 2024-08-15 13:50 | XMS_ITS | Data Portability ---
Author Organization [facility], [facility] Address [address] [place] [id number] Care Team Providers Care Emission Specialist Name Role Phone HIM CCA OTHER Assessment Encounter Date Assessment Date Assessment LastModified by Organization Details LastModified Time 06/15/2024 06/15/2024 As noted, we wer e called to see this patient regarding concerns of cellulitis. Evaluation in the field was performed by my rug shampooer colleague, as noted above, I provided real-time direction and supervision for this visit. The evaluation revealed 69yF with cellulitis and tachycardia, initiated fluids but during monitoring HR jumping rapidly b/w 80s and 150s. Given cardiac instability, referred to ER. Impression: tachycardia, cellulitis, hypokalemia, hemodynamically stable Plan: refer to ER Primary care, [facility] available 06/15/2024 19:30:37 Plan of Treatment Reminders Order Date Submit Date Provider Last Modified By Organization Details Last Modified Time Details Appointments None recorded. Lab BMP, serum or plasma [facility]24 025 [facility], [address] [place] [address], [id number] 08:43:15 Referral None recorded. Procedures None recorded. Surgeries None recorded. Imaging None recorded. Medication Orders lactated Ringers intravenous solution 2024 025 [id number], [address], [place], [phone], 18:48:12 acetaminoph en 500 mg tablet 2024 025 [id number], [address], [place], [phone], 02/15/202 5 18:48:12 Patient TargetsNo targets recorded. [...] SNOMED-CT Code Diagnosis ICD10 Code Diagnosis Note 18254 Holly Orr MD Main - [facility] [address] [place] [address] 06/15/2024 18:28:00 06/16/2024 15:21:13 Infection of skin and/or subcutaneous tissue 70686277 L08.9 Tachycardia 8378313 R00. 0 Health Concerns Section Related Observation LastModified by Organization Detai ls LastModified Time None Recorded Concern Status LastModified by Organization Details LastModified Time None Recorded Advance Directives Directive None Recorded Payers Encounter Date Sequence Insurance Name Policy Number Policy Hodges Covered Member ID Hodges Member ID Guarantor Name 06/15/2024 1 [facility] - DOS ON OR AFTER 2022 - DUAL ELIGIBLE - USP OPTIONS AND ONE [employer] (MEDICARE REPLACEMENT/AD VANTAGE - HMO) Delfina Rodriguez [id number] Delfina Rodriguez Notes Date Note Type Note [...] - 15:08Allergies Reviewed at 06/14/2024 - 15:08Comments: Marketing Ambassador verified the patient's name//address and phone number. [...] emergency treatment if needed -Vicki Saleh RN Service Associate Organization Information for Nate Garcia [employer] Name: [employer]? Address: [address] [place] [address], Account Executive: Gregory ELIAS No.: [id number] Service Associate POC Test Results from Nate Garcia - [...] ..................... ..................... ..................... ..................... ..................... ..................... ............... Service Associate Note From Nate Garcia: SC12 dispatched to [...] increases. Patient denies dizziness or blurred vision. [facility] [place] consulted, provided orders for IV access, blood draw for BMP, 1 Liter NS, and 12 Lead EKG. 12 Lead EKG performed and uploaded to [employer] for remote interpretation, monitor advised supraventricular tachycardia. 20 gauge IV established in left AC, labs drawn for BMP, and NS fluid infusion initiated. About 700ml administered throughout patient care with minimal changes in HR. BMP ISTAT performed as noted. [facility] consulted again, advised that she recommends that patient go to the ED due to heart rate and no change with fluids. Patient agreed to go to the hospital, 911 called. [facility] arrival on scene, patient report provided and care was transferred. EMS assisted on scene as needed until transport. SC12 clear. ..................... ..................... ..................... ..................... ..................... ..................... ............... [facility] Consulted: Holly Orr ..................... ..................... ..................... ..................... ..................... ..................... ............... Disposition: Fulfilled Holly Orr MD [address] [facility],[address], [place], [address], KIM - DARRELL AMATO 06/15/2024 20:16:32 OBGyn Episode No OBEpisode recorded.
== END 2024-08-15 11:47 | disposition home or self-care (01) ==
PROVIDERS: PCP Internal Medicine; Visit Provider Internal Medicine
DX: F33.0 Major depressive disorder, recurrent, mild (principal); J01.00 Acute maxillary sinusitis, unspecified; F41.1 Generalized anxiety disorder; J45.30 Mild persistent asthma, uncomplicated

== ENCOUNTER → 2024-08-15 11:12 | Outpatient (BNVA) | payer OTHER, SELFPAY | PROVIDERS: PCP Internal Medicine; Visit Provider Internal Medicine | DX: F33.0 Major depressive disorder, recurrent, mild (principal); J01.00 Acute maxillary sinusitis, unspecified; F41.1 Generalized anxiety disorder; J45.30 Mild persistent asthma, uncomplicated | CPT/HCPCS: 99212 ==

== ENCOUNTER → 2024-10-16 09:28 | Outpatient (REF) | payer OTHER, SELFPAY ==
--- NOTE | ~2024-10-16 | NM_ITS ---
EXERCISE MYOCARDIAL PERFUSION STUDY INDICATION: Tachycardia, SVT TECHNIQUE: The patient was brought in for an exercise perfusion study on 10/16/2024. Patient performed exercise as per Jaquan protocol and was injected 30 mCi of sestamibi once target heart rate was achieved. Images were obtained using the SPECT gamma camera interlaced with the gating device. Images were obtained in supine position. Resting perfusion study was performed on 10/21/2024. Patient was administered 30 mCi of sestamibi intravenously at rest. Images were then obtained in supine position. Total DLP 71 mGy-cm. Images were processed with the software and compared side to side in short axis, horizontal long axis and vertical long axis views. FINDINGS: Raw aquisition reviewed. The stress perfusion study showed no significant perfusion abnormality. Both uncorrected as well as CT attenuation corrected images were reviewed. The gated study shows normal LV systolic function with calculated LVEF of 66%. LV cavity is normal in size. The gated study shows normal wall thickening and contraction of segments. Resting study shows no significant perfusion abnormality. Gating at rest reveals normal wall motion with ejection fraction at 61%. The findings are consistent with no clear reversible or fixed perfusion abnormality. NM/NM cardiolite stress test IMPRESSION: 1. Myocardial perfusion imaging study shows normal myocardial perfusion. 2. Gated LVEF is 66% during stress and 61% during rest. 3. Transient ischemic dilatation not present. EKG component of the test reported separately. Electronically signed by: Stevie Khan MD 10/22/2024 03:05 PM EDT
--- NOTE | 2024-10-16 09:30 | CA_ITS ---
Acquisition Time: 2024-10-16 10:12:27 Total Exercise Time: 00:03:04 Test Indications: TACHYCARDIA, SVT Medications: Protocol: NATHALIA Max HR: 153 BPM 100% of Pred: 152 BPM Max BP: 174/78 mmHG Max Work Load: 4.6 METS Exercise stress test with exercise 5 mins 25 secs of Nathalia Protocol, held at Stage 1 due to fatigue, achieving 102% MPHR, with reports of moderate SOB, no chest pain, without any arrythmias, with normotensive response to exercise. Without EKG changes meeting criteria for ischemia. In recovery, pt's breathing returned to baseline.Nuclear images pending. Test reviewed with Dr. Aguilar. Referred By: Stevie Khan Electronically Signed By: Tashi Llamas
--- OUTSIDE RECORDS SUMMARY | 2024-10-16 10:24 | XMS_ITS | Data Portability ---
Author Organization [facility], [facility] Address [address] [place] [phone] Care Team Providers Care Certified Executive Chef Name Role Phone HIM CCA OTHER Assessment Encounter Date Assessment Date Assessment LastModified by Organization Details LastModified Time 06/15/2024 06/15/2024 As noted, we amador greene called to see this patient regarding concerns of cellulitis. Evaluation in the field was performed by my flying instructor colleague, as noted above, I provided real-time direction and supervision for this visit. The evaluation revealed 69yF with cellulitis and tachycardia, initiated fluids but during monitoring HR jumping rapidly b/w 80s and 150s. Given cardiac instability, referred to ER. Impression: tachycardia, cellulitis, hypokalemia, hemodynamically stable Plan: refer to ER Primary care, [facility] 06/15/2024 19:30:37 Plan of Treatment Reminders Order Date Submit Date Provider Last Modified By Organization Details Last Modified Time Details Appointments None recorded. Lab BMP, serum or plasma 2024 [facility]25 [facility], [address] [place] [address], [id number] 08:43:15 Referral None recorded. Procedures None recorded. Surgeries None recorded. Imaging None recorded. Medication Orders lactated Ringers intravenous solution 2024 025 [facility] #[id number], [address] [place], [place], [id number], 5 18:48:12 acetaminoph en 500 mg tablet 2024 025 [facility] #[id number], [address] [place], [place], [id number], 02/15/202 5 18:48:12 Patient TargetsNo targets recorded. [...] SNOMED-CT Code Diagnosis ICD10 Code Diagnosis Note [id number] Holly Orr MD Main - [facility] [address] [place] [address] 06/15/2024 18:28:00 06/16/2024 15:21:13 Infection of skin and/or subcutaneous tissue 54679002 L08.9 Tachycardia 9823919 R00. 0 Health Concerns Section Related Observation LastModified by Organization Detai ls LastModified Time None Recorded Concern Status LastModified by Organization Details LastModified Time None Recorded Advance Directives Directive None Recorded Payers Insurance Date Sequence Insurance Name Policy Number Policy Hodges Covered Member ID Hodges Member ID Guarantor Name 06/14/2024 1 [facility] - DOS ON OR AFTER 2022 - DUAL ELIGIBLE - RESIDENTIAL OPTIONS AND ONE CARE (MEDICARE REPLACEMENT/AD VANTAGE - HMO) Delfina oRdriguez [id number] Delfina Rodriguez Notes Date Note Type Note Provider Name and Address Organization Details Recorded Time 06/15/2024 text/html CRC Nurse Triage Notes (Seven Saleh - LISSA): Denies: Mc Flash, circumferential mc Mc reported with black tissue to the area Open skin area after a fall with uncontrolled bleeding Abscess/infection with streaking noted, presence of fever or without Chief Complaints: Wound careH Reviewed at 06/14/2024 - 15:08Allergies Reviewed at 06/14/2024 - 15:08Comments: Manager Of Health verified the patient's name//address and phone number. [...] emergency treatment if needed -Vicki Saleh RN Central Lab Technician Organization Information for [email or web address] Legal Name: [employer]. Address: [address] [place] [address], [place] Supervisor Of Guidance And Testing: Gregory ELIAS No.: [id number] Central Lab Technician POC Test Results from Nate Garcia - [...] ..................... ..................... ..................... ..................... ..................... ..................... ............... Central Lab Technician Note From Nate Garcia: SC12 dispatched to the address listed above for the report of a female green party with a leg wound. Arrival on [...] increases. Patient denies dizziness or blurred vision. [facility] was consulted, provided orders for IV access, blood draw for BMP, 1 Liter NS, and 12 Lead EKG. 12 Lead EKG performed and uploaded to [employer] for remote interpretation, monitor advised supraventricular tachycardia. 20 gauge IV established in left AC, labs drawn for BMP, and NS fluid infusion initiated. About 700ml administered throughout patient care with minimal changes in HR. BMP ISTAT performed as noted. [facility] consulted again, advised that she recommends that patient go to the ED due to heart rate and no change with fluids. Patient agreed to go to the hospital, 911 called. [facility] arrival on scene, patient report provided and care was transferred. EMS assisted on scene as needed until transport. SC12 clear. ..................... ..................... ..................... ..................... ..................... ..................... ............... [facility] Consulted: Holly Orr ..................... ..................... ..................... ..................... ..................... ..................... ............... Disposition: Fulfilled Holly Orr MD [address] [facility],[address], [place], [address], [employer]DARRELL 06/15/2024 20:16:32 OBGyn Episode No OBEpisode recorded.
== END ==
LOC: HO.CARD 09:28
PROVIDERS: PCP Internal Medicine; Visit Provider Internal Medicine
DX: R07.2 Precordial pain (principal); I47.10 Supraventricular tachycardia, unspecified
CPT/HCPCS: 78452; 93017; A9500

== ENCOUNTER → 2024-10-16 09:30 | Outpatient (BNV) | payer OTHER, SELFPAY | PROVIDERS: PCP Internal Medicine | DX: R06.02 Shortness of breath (principal); I47.10 Supraventricular tachycardia, unspecified | CPT/HCPCS: 78452; 93016; 93018 ==

== ENCOUNTER 2024-10-25 12:46 | Outpatient (AMB) | payer OTHER, SELFPAY ==
[2024-10-25 12:56] VITALS: BP 110/60; PULSE 66; BMI 25.2
--- NOTE | 2024-10-25 12:56 | MHC.OFFVIS ---
Vital Signs 10/25/24 12:56 Height 5 ft 7 in Weight 160 lb 14.999 oz BMI 25.2 BP 110/60 Blood Pressure Location Lt brachial Position Sitting Pulse 66 Pulse Source Pulse Oximeter Intake Visit Reasons: f/u after testing Allergies bupropion (From Wellbutrin SR) Allergy (Intermediate, Verified 08/15/24 11:31) tachycardia Medication List - Last Reconciled 10/25/24 by Preeti Kwon, JAVA APPLICATION ENGINEER-C albuterol sulfate 90 mcg/actuation (Ventolin HFA) 2 puffs inhalation Q6H PRN 30 days blood pressure monitor As directed calcium carbonate 500 mg PO BID 90 days celecoxib 200 mg PO BID cetirizine (All Day Allergy (cetirizine)) 10 mg PO DAILY PRN 30 days cholecalciferol (vitamin D3) 25 mcg PO DAILY 30 days clonazepam 0.5 mg PO BID doxycycline hyclate 100 mg PO BID 5 days fluticasone propionate 50 mcg/actuation 1 spray intranasal DAILY 30 days metoprolol tartrate 25 mg PO BID 90 days omeprazole 40 mg PO DAILY 90 days tramadol 50 mg PO Q4-6H PRN 30 days Wellbutrin SR (bupropion HCl) 200 mg PO DAILY 90 days NS zolpidem 10 mg PO BEDTIME 30 days HPI HPI f/u after testing: Details: Delfina is a 69-year-old female with past medical history of GERD, heart palpitations, brief SVT who presents for follow-up after recent echocardiogram and nuclear stress test. Today she reports she has been doing well since her last visit in June. Since starting metoprolol she notices less heart palpitations. She states when she gets heart palpitations they are mild compared to previously. She is currently pleased with how she is feeling. She has no chest discomfort at rest or with activity. No shortness of breath, PND, orthopnea or edema. No lightheadedness, presyncope, syncope. She is compliant with her medications. [facility] Medical History Leukopenia Insomnia ED (generalized anxiety disorder) Mild recurrent major depression Physical exam Pre-op evaluation Polyarthralgia Surgical History History of colonoscopy History of cataract surgery History of repair of rotator cuff History of arthroscopy of left knee History of total abdominal hysterectomy and bilateral salpingo-oophorectomy Family History Father CVD (cardiovascular disease) Hypertension Mother Diabetes Uterine cancer Cancer Paternal Grandmother Hypertension Paternal Grandfather No problems noted. Family/Other Substance use disorder FH: mental illness Son No problems noted. Daughter No problems noted. Daughter No problems noted. Brother Cancer Maternal Grandmother Cancer Maternal Grandfather Cancer Paternal Uncle Cancer Social History Household Members: Children [facility] Are you a primary neurocritical care physician to a significant other at home: No Do you presently have visiting nurse or other home services: No Alcohol intake: current Alcohol intake frequency: holidays/special occasions only Alcohol type: beer Patient Tobacco Use Status: Former Tobacco user Tobacco use type: Cigarette e-Cigarette/Vaping Use: Never Used Second Hand Smoke Exposure: No service: No Current occupational status: employed 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 Cognitive needs: No Hearing needs: No Vision needs: Yes (Glasses.) Review of Systems Const All systems reviewed & are unremarkable except as noted in HPI and below Denies weakness ENT Denies dizziness Card Details: palpitations - less than prior Denies chest pain, Denies chest pain with activity, Denies syncope, Denies rapid heart rate, Denies pedal edema, Denies edema, Denies leg edema, Denies lightheadedness, Denies palpitations, Denies dyspnea, Denies dyspnea on exertion and Denies orthopnea Resp Denies cough, Denies dyspnea and Denies dyspnea on exertion GI Denies hematochezia and Denies change in stool character Musc Denies abnormal gait, Denies muscle cramps, Denies muscle weakness, Denies numbness, Denies radiating pain into limb and Denies tingling Neuro Denies abnormal gait, Denies dizziness, Denies syncope, Denies numbness, Denies tingling and Denies weakness Endo Denies palpitations Physical Exam Vital Signs: Last Vital Signs Pulse 66 10/25/24 12:56 BP 110/60 10/25/24 12:56 BMI result Body Mass Index 25.2 Const General: cooperative, healthy appearing, comfortable and no acute distress Orientation/consciousness: patient oriented x3 Neck Neck: Yes normal visual inspection Resp Effort & Inspection: normal respiratory effort Auscultation: clear to auscultation bilaterally, no crackles, no rales, no rhonchi and no wheezes Cardio Rate: regular rate Rhythm: regular rhythm Heart sounds: S1 normal heart sound present, S2 normal heart sound present, no gallops, no murmurs and no rubs Neuro General: patient oriented x3 Extrem General: Yes normal to inspection, No no pedal edema and No calf tenderness Psych Appearance: grossly normal Mental Status: mental status grossly normal Speech and movement: Normal speech and movement present Assessment & Plan Assessment & Plan (1) SVT (supraventricular tachycardia): Code(s): I47.10 - Supraventricular tachycardia, unspecified Category: Medical Plan: Reports of heart palpitations, evaluated with Holter monitor on 06/27/2024 showing sinus rhythm with average heart rate 94 beats per minute, frequent sinus tachycardia, 28% of the time heart rate greater than 100 and multiple runs of SVT, longest 35 beats at 147 beats per minute. She was put on metoprolol 25 mg b.i.d. and reports much improvement in her symptom. Resting heart rate today 66, blood pressure 110/60. Will continue metoprolol at current dose. Instructed to avoid caffeinated beverages, maintain good hydration and activity as tolerated. Emergency care if she does have sustained rapid heart palpitations. Cardiology follow-up 6 months, sooner if needed. (2) Tachycardia: Code(s): R00.0 - Tachycardia, unspecified Category: Medical Plan: Sinus tachycardia as above. (3) Palpitations: Code(s): R00.2 - Palpitations Category: Medical (4) Abnormal echocardiogram: Code(s): R93.1 - Abnormal findings on diagnostic imaging of heart and coronary circulation Category: Medical Plan: Echocardiogram done on 08/13/2024 showed EF 60-65% with moderate mitral calcification, inferior septal, basal inferior and mid inferior hypokinetic. She then had a nuclear stress test on 10/16/2024 showing normal myocardial perfusion imaging, the report indicates normal wall motion with ejection fraction 61%. Echocardiogram was likely false positive. She has no anginal symptoms. No further testing at this time. Plan to re-evaluate at next follow-up. Plan I discussed with the patient that her echocardiogram showed a normal ejection fraction but an inferior wall motion abnormality, which was likely a false positive given the normal stress test results. We talked about the importance of monitoring her symptoms and in the future adjusting her metoprolol dosage if necessary. I advised her to reduce caffeine intake to help manage palpitations and explained that her family history of myocardial infarction is a risk factor to be aware of. Follow-up was planned for six months, with instructions to return sooner if symptoms worsen. Patient Instructions: - Continue taking metoprolol as prescribed. - Monitor for any increase in palpitations or chest pressure. - Reduce caffeine intake to help manage heart palpitations. - Schedule a follow-up appointment in six months or sooner if symptoms worsen. Patient was informed and verbally consented to the use of an ambient scribe for clinic note documentation during this visit. Visit time spent on chart review, interview, assessment, orders, documentation. Coding Level of Care Code Est Pt Level 3 (85631) Complex EM visit Add On G2211 Diagnoses SVT (supraventricular tachycardia) I47.10 Tachycardia R00.0 Palpitations R00.2 Abnormal echocardiogram R93.1 Time Spent (min) 24
--- OUTSIDE RECORDS SUMMARY | 2024-10-25 13:22 | XMS_ITS | Data Portability ---
Author Organization [employer] [facility], [facility] Address [address] [place] [phone] Care Team Providers Care Metal Finisher Name Role Phone HIM CCA OTHER Assessment Encounter Date Assessment Date Assessment LastModified by Organization Details LastModified Time 06/15/2024 06/15/2024 As noted, we amador greene called to see this patient regarding concerns of cellulitis. Evaluation in the field was performed by my customer operations manager colleague, as noted above, I provided real-time direction and supervision for this visit. The evaluation revealed 69yF with cellulitis and tachycardia, initiated fluids but during monitoring HR jumping rapidly b/w 80s and 150s. Given cardiac instability, referred to ER. Impression: tachycardia, cellulitis, hypokalemia, hemodynamically stable Plan: refer to ER Primary care, consider ER discharge f/u [facility] Not available 06/15/2024 19:30:37 Plan of Treatment Reminders Order Date Submit Date Provider Last Modified By Organization Details Last Modified Time Details Appointments None recorded. Lab BMP, serum or plasma 2024 025 [facility], [address] [place] [address], [id number] 5 08:43:15 Referral None recorded. Procedures None recorded. Surgeries None recorded. Imaging None recorded. Medication Orders lactated Ringers intravenous solution 2024 025 [facility] Not available 18:48:12 acetaminoph en 500 mg tablet 2024 025 [facility] Not available 18:48:12 Patient TargetsNo targets recorded. Patient InstructionsNo [...] [degF] 126 mm[Hg] 77 mm[Hg] Not Available [employer] - production 5 18:37:20 Social History None recorded. Functional Status None recorded. Mental Status None recorded. Family History Nothing Reported. Medical History No medical history recorded. Gynecological HistoryNo gynecological history recorded. Obstetrics History GPAL:G 0 P 0 0 0 0 Past Encounters Encounter ID Performer Location Encounter Start Date Encounter Closed Date Diagnosis/Indication Diagnosis SNOMED-CT Code Diagnosis ICD10 Code Diagnosis Note [id number] Holly Orr MD Main - [facility] [address] [place] [address] 06/15/2024 18:28:00 06/16/2024 15:21:13 Infection of skin and/or subcutaneous tissue 23225859 L08.9 Tachycardia 4068733 R00. 0 Health Concerns Section Related Observation LastModified by Organization Detai ls LastModified Time None Recorded Concern Status LastModified by Organization Details LastModified Time None Recorded Advance Directives Directive None Recorded Payers Insurance Date Sequence Insurance Name Policy Number Policy Hodges Covered Member ID Hodges Member ID Guarantor Name 06/14/2024 1 [facility] - DOS ON OR AFTER 2022 - DUAL ELIGIBLE - SENIOR LIVING OPTIONS AND ONE CARE (MEDICARE REPLACEMENT/AD VANTAGE - HMO) Delfina Michael [id number] Delfina Rodriguez Notes Date Note Type Note Provider Name and Address Organization Details Recorded Time 06/15/2024 text/html CRC Nurse Triage Notes (Seven Saleh - RN): Denies: Mc Flash, circumferential mc Mc reported with black tissue to the area Open skin area after a fall with uncontrolled bleeding Abscess/infection with streaking noted, presence of fever or without Chief Complaints: Wound carePMH Reviewed at 06/14/2024 - :08Allergies Reviewed at 06/14/2024 - 15:08Comments: Beader Tender verified the patient's name//address and phone number. [...] s/s and seek emergency treatment if needed -HVasiliy Saleh RN Fish Machine Feeder Organization Information for Nate Garcia Business Legal Name: [employer]. Address: [address] [place] [address], Centerpuncher: Gregory Regalado MD CLIA No.: [id number] Fish Machine Feeder POC Test Results from Nate Garcia EKG (18:53:23) EKG test performed. Attachments uploaded [...] ..................... ..................... ..................... ..................... ..................... ..................... ............... Fish Machine Feeder Note From Nate Garcia: SC12 dispatched to the address listed above for the report of a female republican with a leg wound. Arrival on scene, [...] increases. Patient denies dizziness or blurred vision. [facility] was consulted, provided orders for IV access, blood draw for BMP, 1 Liter NS, and 12 Lead EKG. 12 Lead EKG performed and uploaded to [employer] for remote interpretation, monitor advised supraventricular tachycardia. 20 gauge IV established in left AC, labs drawn for BMP, and NS fluid infusion initiated. About 700ml administered throughout patient care with minimal changes in HR. BMP ISTAT performed as noted. [facility] consulted again, advised that she recommends that patient go to the ED due to heart rate and no change with fluids. Patient agreed to go to the hospital, 911 called. [facility] arrival on scene, patient report provided and care was transferred. EMS assisted on scene as needed until transport. SC12 clear. ..................... ..................... ..................... ..................... ..................... ..................... ............... [facility] Consulted: Holly Orr ..................... ..................... ..................... ..................... ..................... ..................... ............... Disposition: Daysi Orr MD [address] [facility],[address], [place], [address], [facility] - [employer] 06/15/2024 20:16:32 OBGyn Episode No OBEpisode recorded.
== END 2024-10-25 13:17 | disposition home or self-care (01) ==
LOC: HO.HCS 12:47
PROVIDERS: PCP Internal Medicine; Visit Provider Nurse Practitioner Family
DX: I47.10 Supraventricular tachycardia, unspecified (principal); R00.0 Tachycardia, unspecified; R00.2 Palpitations; R93.1 Abnormal findings on diagnostic imaging of heart and coronary circulation
CPT/HCPCS: 99213; G2211

== ENCOUNTER → 2024-10-25 12:46 | Outpatient (BNVA) | payer OTHER, SELFPAY | PROVIDERS: PCP Internal Medicine; Visit Provider Nurse Practitioner Family | DX: I47.10 Supraventricular tachycardia, unspecified (principal); R00.2 Palpitations; K21.9 Gastro-esophageal reflux disease without esophagitis; R93.1 Abnormal findings on diagnostic imaging of heart and coronary circulation | CPT/HCPCS: 99212 ==

== ENCOUNTER 2025-03-03 10:17 | Outpatient (AMB) | payer OTHER, SELFPAY ==
[2025-03-03 10:20] VITALS: BP 150/72; PULSE 68; RESP 18; TEMP 36.3; O2SAT 99; BMI 25.4
--- NOTE | 2025-03-03 10:20 | A.OFFPC_ITS ---
Vital Signs 03/03/25 10:20 Height 5 ft 7 in Weight 162 lb BMI 25.4 BP 150/72 H Blood Pressure Location Lt brachial Position Sitting Respiration 18 Pulse 68 Pulse Source Pulse Oximeter Temp 97.3 F Temp Source Temporal Artery Scan Pulse Oximetry (%) 99 Oxygen Delivery Method Room Air Intake Visit Reasons: Annual Exam Temp Recruiter Required: No Accompanied by: Self / Same As Patient Allergies bupropion (From Wellbutrin SR) Allergy (Intermediate, Verified 03/03/25 10:46) tachycardia Medication List - Last Reconciled 03/03/25 by Jodie Angeles MD albuterol sulfate 90 mcg/actuation (Ventolin HFA) 2 puffs inhalation Q6H PRN 30 days blood pressure monitor As directed calcium carbonate 500 mg PO BID 90 days celecoxib 200 mg PO BID cetirizine (All Day Allergy (cetirizine)) 10 mg PO DAILY PRN 30 days cholecalciferol (vitamin D3) 25 mcg PO DAILY 30 days clonazepam 0.5 mg PO BID fluticasone propionate 50 mcg/actuation 1 spray intranasal DAILY 30 days metoprolol tartrate 25 mg PO BID 90 days omeprazole 40 mg PO DAILY 90 days tramadol 50 mg PO Q4-6H PRN 30 days Wellbutrin SR (bupropion HCl) 200 mg PO DAILY 90 days NS zolpidem 10 mg PO BEDTIME 30 days Tobacco use date assessed: 03/03/25 Fall risk assessment: No Falls in past year Last assessed Fall Risk: 03/03/25 Dental Screening Dental Screen Date: 03/03/25 Did you have a dental visit in the last 12 months?: No Did you have a dental problem in the last 6 months where you did not have access to dental care?: No Was dental information given to patient?: No HPI HPI Comments History of Present Illness Details The patient is a 69-year-old female who presents for an annual physical examination. Regarding health maintenance, her last mammogram was in July of the previous year. A bone densitometry scan in 2022 revealed osteopenia. Her last Cologuard test was in 2021, with the next one due in 2024. Her vaccinations for pneumonia and tetanus are up-to-date, but she is due for the influenza and COVID vaccines. The patient's past surgical history is positive for a rotator cuff repair in 2017, cataract surgery, and knee surgery. The patient reports an allergy to bupropion. She sees a psychiatrist and takes clonazepam, metoprolol for a heart condition, omeprazole for acid reflux, and zolpidem. She reports needing a prescription for tramadol. Rxtk-kzq-vqmptdr medications include vitamin D3 and calcium, which she sometimes forgets to purchase. She has discontinued celecoxib. The patient has a history of smoking since age 13 but successfully quit three years ago. [facility] Medical History Leukopenia Insomnia ED (generalized anxiety disorder) Mild recurrent major depression Physical exam Pre-op evaluation Polyarthralgia Surgical History History of colonoscopy History of cataract surgery History of repair of rotator cuff History of arthroscopy of left knee History of total abdominal hysterectomy and bilateral salpingo-oophorectomy Family History Father CVD (cardiovascular disease) Hypertension Mother Diabetes Uterine cancer Cancer Paternal Grandmother Hypertension Paternal Grandfather No problems noted. Family/Other Substance use disorder FH: mental illness Son No problems noted. Daughter No problems noted. Daughter No problems noted. Brother Cancer Maternal Grandmother Cancer Maternal Grandfather Cancer Paternal Uncle Cancer Social History Household Members: Children Housing: [facility] Are you a primary home care manager to a significant other at home: No Do you presently have visiting nurse or other home services: No Alcohol intake: current Alcohol intake frequency: holidays/special occasions only Alcohol type: beer Patient Tobacco Use Status: Former Tobacco user Tobacco use type: Cigarette e-Cigarette/Vaping Use: Never Used Second Hand Smoke Exposure: No service: No Current occupational status: employed 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 1. Little interest or pleasure in doing things: more than half the days 2. Feeling down, depressed, or hopeless: more than half the days 3. Trouble falling or staying asleep, or sleeping too much: more than half the days 4. Feeling tired or having little energy: not at all 5. Poor appetite or overeating: more than half the days 6. Feeling bad about yourself - or that you are a failure or have let yourself or your family down: several days 7. Trouble concentrating on things, such as reading the newspaper or watching television: several days 8. Moving or speaking so slowly that other people could have noticed. Or the opposite - being so fidgety or restless that you have been moving around a lot more than usual: several days 9. Thoughts that you would be better off or of hurting yourself in some way: not at all Total score: 11 Depression Screening Interpretation: Positive Depression Screening Follow-up: Ex isting condition, In treatment, Community Mental Health Worker F/U and Follow-up Visit Requested Depression Screening Done: Yes 75290 - PHQ-9 Billing: Yes Source: Developed by Drs. Prince Srivastava, Kori Phillips, Jose Sanders and colleagues, with an educational buddy from [employer]. Thrive Questionnaire Date Thrive assessed: 06/20/24 I am a: Patient What is your living situation today?: I have a steady place to live Within the past 12 months, did the food you bought not last and you didn't have the money to get more?: Sometimes True Within the past 12 months, did you worry whether your food would run out before you got money to buy more?: Sometimes True Do you have trouble paying for medicines?: No Do you have trouble getting transportation to medical appointments?: No Do you have trouble paying your heating and electricity bill?: I choose not to answer this question Do you have trouble taking care of your child, family member or friend?: No Do you have trouble with day-to-day activities such as bathing, preparing meals, shopping, managing finances, etc.?: No Are you currently unemployed and looking for a job?: No Are you interested in more education?: No Please select the resources that you would like help with: None Currently or been in a relationship where the following occur: I choose not to answer THRIVE Score: 2 AUDIT C Alcohol Use Questionnaire (AUDIT-C) 1. How often do you have a drink containing alcohol?: Never Total Score: 0 Score Reviewed/Action Taken: No ED-7 AMB Questionnaire ED-7 Date ED - 7 assessed: 06/20/24 Feeling nervous, anxious, or on edge: 2 = More than half the days Not being able to stop or control worryin = More than half the days Worrying too much about different things: 2 = More than half the days Trouble relaxin = More than half the days Being so restless that it is hard to sit still: 1 = Several days Becoming easily annoyed or irritable: 1 = Several days Feeling afraid as if something awful might happen: 3 = Nearly every day Total ED-7 score (0-4 normal; 5-9 mild; 10-14 moderate; 15-21 severe): 13 Source: Developed by Drs. Prince Srivastava, Kori Phillips, Jose Sanders and colleagues, with an educational buddy from [employer]. ED-7 Assessment Billing ED-7 Assessment Tool: ED-7 Assessment 97555 Review of Systems Const All systems reviewed & are unremarkable except as noted in HPI and below Card Denies chest pain at rest, Denies chest pain with activity, Denies edema, Denies irregular heart rhythm, Denies claudication, Denies dyspnea, Denies dyspnea on exertion, Denies orthopnea, Denies paroxysmal nocturnal dyspnea and Denies slow heart rate Resp Denies cough, Denies dyspnea and Denies dyspnea on exertion GI Denies abdominal pain, Denies change in bowel habits, Denies excessive flatus, Denies nausea and Denies vomiting Denies urinary incontinence, Denies urinary hesitancy and Denies urinary urgency Musc Denies atrophy, Denies deformity and Denies limited range of motion Skin/Breast Denies bleeding lesions, Denies changing lesions and Denies rash Physical exam (Primary Care) Vital Signs: Last Vital Signs Temp 97.3 F 03/03/25 10:20 Pulse 68 03/03/25 10:20 Resp 18 03/03/25 10:20 BP 150/72 H 03/03/25 10:20 Pulse Ox 99 03/03/25 10:20 Oxygen Delivery Method Room Air 03/03/25 10:20 BMI result Body Mass Index 25.4 Tobacco/Smoking Status: Tobacco use Status Tobacco use date assessed 03/03/25 03/03/25 10:25 Patient Tobacco Use Status Former Tobacco user 03/03/25 10:25 Tobacco use type Cigarette 03/03/25 10:25 e-Cigarette/Vaping Use Never Used 03/03/25 10:25 PHQ-9: PHQ-9 Score PHQ-9: Total score 11 03/03/25 10:54 Depression Screening Interpretation: Positive Depression Screening Follow-up: Existing condition, In treatment, Community Mental Health Worker F/U and Follow- up Visit Requested Thrive Assessment: Date of Thrive Assessment Date Thrive assessed 06/20/24 03/03/25 10:25 Currently or been in a relationship where the following occur: I choose not to answer HENMT Head: Yes normal to inspection, Yes normocephalic and Yes atraumatic Ears: external ears normal Eyes General: appearance normal, both eyes and all related structures Eyelids: Yes eyelids normal Conjunctivae: conjunctivae normal Neck Neck: Yes normal visual inspection and Yes supple Resp Effort & Inspection: normal respiratory effort Auscultation: clear to auscultation bilaterally Cardio Jugular venous distension: no JVD Rate: regular rate Rhythm: regular rhythm Heart sounds: S1 normal heart sound present and S2 normal heart sound present GI Inspection: Yes normal to inspection Palpation (GI): Soft to palpation and nontender Auscultation: normal bowel sounds Skin General skin exam: no rashes or lesions noted Neuro General: no focal motor deficits Extrem General: Yes full ROM Psych Appearance: grossly normal Office Procedures Flu Questionnaire Does the patient have a severe egg allergy?: No Does the patient have severe life threatening allergies?: No Does the patient have a fever or illness today?: No Has the patient ever had Guillain-[place] Syndrome?: No Has the patient ever had any past reaction to a flu shot?: No Immunizations Fluarix 9835-0132 (PF) 45 mcg (15 mcg x 3)/0.5 mL IM syringe Performing Provider: Jodie Angeles MD [facility] Administered by: GER Lundy on 03/03/25 11:04 Dose Route Admin Location Dispensed Lot Number Expiration Date [facility][NOTE 3] Java Application Developer 0.5 mL IM Left Deltoid 0.5 mL [id number] 10/28/25 93714-721-44 [facility] V[facility] Given Date VIS Provided VIS Publication Date 03/03/25 Single Vaccine 24 Eligibility Eligibility Date Funding Source Not [facility] Eligible 03/03/25 Private Coding Level of Care Code Est Pt Prev Care >65y(11304) Diagnoses Physical exam Z00.00 Former smoker Z87.891 Mild recurrent major depression F33.0 Additional Codes PHQ-9 - 49538 - PHQ-9 Billing: Yes ([id number]) ED-7 Assessment Billing - ED-7 Assessment Tool: ED-7 Assessment 84546 ([id number]) Time Spent (min) 30 Assessment & Plan Assessment & Plan (1) Physical exam: Code(s): Z00.00 - Encounter for general adult medical examination without abnormal findings Category: Medical (2) Former smoker: Code(s): Z87.891 - Personal history of nicotine dependence Category: Social Hx (3) Mild recurrent major depression: Code(s): F33.0 - Major depressive disorder, recurrent, mild Category: Medical Plan Plan 1. Physical exam The patient has a history of osteopenia diagnosed via bone densitometry in 2022. An order for a repeat bone densitometry scan will be placed. Will prescribe vitamin D and calcium to improve adherence. Cologuard to be done this year. PCV 20 and Tdap vaccine up-to-date. Mammogram to be done this year. 2. History Of Tobacco Use The patient has an extensive history of smoking from age 13, though she quit three years ago. A referral for lung cancer screening will be considered. Orders: Orders Influenza 9030-8722 Immunization Today Z23 - Encounter for immunization MM tomosynthesis screening BI Today Z12.31 - Encounter for screening mammogram for malignant neoplasm of breast Comprehensive [place]. Panel Fast Today Z00.00 - Encounter for general adult medical examination without abnormal findings XR DEXA axial skeleton Today Z78.0 - Asymptomatic menopausal state Complete Blood Count Auto Diff Today D64.9 - Anemia, unspecified Lipid Panel Today E78.5 - Hyperlipidemia, unspecified Vitamin D 25-OH Total Today E55.9 - Vitamin D deficiency, unspecified Referrals Cologuard Test Z12.11 - Encounter for screening for malignant neoplasm of colon, Z12.12 - Encounter for screening for malignant neoplasm of rectum Lung Cancer Screening Referral Z87.891 - Personal history of nicotine dependence Medications: Refilled calcium carbonate 500 mg PO BID 180 tabs 3RF 90 days Z00.00 - Encounter for general adult medical examination without abnormal findings cholecalciferol (vitamin D3) 25 mcg PO DAILY 30 tabs 11RF 30 days Z00.00 - Encounter for general adult medical examination without abnormal findings
--- OUTSIDE RECORDS SUMMARY | 2025-03-03 12:23 | XMS_ITS | Data Portability ---
Author Organization [employer] [facility], [facility] Address [address] [place] [id number] Care Team Providers Care Seam Closer Name Role Phone HIM CCA OTHER Assessment Encounter Date Assessment Date Assessment LastModified by Organization Details LastModified Time 06/15/2024 06/15/2024 As noted, we amador greene called to see this patient regarding concerns of cellulitis. Evaluation in the field was performed by my train station agent colleague, as noted above, I provided real-time [...] Lab BMP, serum or plasma 2024 025 [facility], [address] [place] [address], [id number] 5 08:43:15 Referral None recorded. Procedures None [...] blood by Pulse oximetry Body temperature Systolic And Diastolic Provider Name and Address Organization Details Last Updated DateTime 5 149 /min 20 /min 97 % 97 % 98 [degF] 126/77 mm[Hg] Not Available [employer] - production 5 18:37:20 Social History None recorded. Functional Status None recorded. Mental Status None recorded. Family History Nothing Reported. Medical History No medical history recorded. Gynecological HistoryNo gynecological history recorded. Obstetrics History GPAL:G 0 P 0 0 0 0 Past Encounters Encounter ID Performer Location Encounter Start Date Encounter Closed Date Diagnosis/Indication Diagnosis SNOMED-CT Code Diagnosis ICD10 Code Diagnosis IMO Codes Diagnosis Note [id number] Holly Orr MD [address] - [facility] [address] [place] [address] 06/15/2024 18:28:00 06/16/2024 15:21:13 Infection of skin and/or subcutaneous tissue 50522677 L08.9 Tachycardia 7520492 R00. 0 Health Concerns Section Related Observation LastModified by Organization Detai ls LastModified Time None Recorded Concern Status LastModified by Organization Details LastModified Time None Recorded Advance Directives Directive None Recorded Payers Insurance Date Sequence Insurance Name Policy Number Policy Hodges Covered Member ID Hodges Member ID Guarantor Name 06/14/2024 1 [facility] - DOS ON OR AFTER 2022 - DUAL ELIGIBLE - SENIOR LIVING OPTIONS AND ONE CARE (MEDICARE REPLACEMENT/AD VANTAGE - HMO) Delfina Micheal [id number] Delfina Michael Notes Date Note Type Note Provider Name [...] - :08Allergies Reviewed at 06/14/2024 - 15:08Comments: Energy Professional verified the patient's name//address and phone number. [...] emergency treatment if needed -HVasiliy Saleh RN Theater Manager Organization Information for Nate Garcia Business Legal Name: [employer]. Address: [address] [place] [id number], Financial Systems Manager: Gregory Regalado MD CLSANTANA No.: [id number] Theater Manager POC Test Results from Nate Garcia EKG [...] ..................... ..................... ..................... ..................... ..................... ..................... ............... Theater Manager Note From Nate Garcia: SC12 dispatched to the address listed above for the report of a female democrat with a leg wound. Arrival on scene, [...] increases. Patient denies dizziness or blurred vision. [facility] was consulted, provided orders for IV access, blood draw for BMP, 1 Liter NS, and 12 Lead EKG. 12 Lead EKG performed and uploaded to Sling for remote interpretation, monitor advised supraventricular tachycardia. 20 gauge IV established in left AC, labs drawn for BMP, and NS fluid infusion initiated. About 700ml administered throughout patient care with minimal changes in HR. BMP ISTAT performed as noted. [facility] consulted again, advised that she recommends that patient go to the ED due to heart rate and no change with fluids. Patient agreed to go to the hospital, 911 called. [facility] arrival on scene, patient report provided and care was transferred. EMS assisted on scene as needed until transport. SC12 clear. ..................... ..................... ..................... ..................... ..................... ..................... ............... [facility] Consulted: Holly Orr ..................... ..................... ..................... ..................... ..................... ..................... ............... Disposition: Daysi Orr MD [address] [facility],[address], [place], [address], [facility] [employer] 06/15/2024 20:16:32 OBGyn Episode No OBEpisode recorded.
== END 2025-03-03 11:12 | disposition home or self-care (01) ==
PROVIDERS: PCP Internal Medicine; Visit Provider Internal Medicine
DX: Z00.00 Encounter for general adult medical examination without abnormal findings (principal); Z87.891 Personal history of nicotine dependence; F33.0 Major depressive disorder, recurrent, mild; Z23 Encounter for immunization

== ENCOUNTER → 2025-03-03 10:17 | Outpatient (BNVA) | payer OTHER, SELFPAY | PROVIDERS: PCP Internal Medicine; Visit Provider Internal Medicine | DX: Z00.00 Encounter for general adult medical examination without abnormal findings (principal); F33.0 Major depressive disorder, recurrent, mild; Z23 Encounter for immunization; Z87.891 Personal history of nicotine dependence | CPT/HCPCS: 90471; 90656; 96127; 99397 ==